=== PATIENT | female | born 1935 | race Caucasian/White ===

== ENCOUNTER → 2023-08-03 09:16 | Outpatient (REF) | payer OTHER, SELFPAY ==
[2023-08-03 11:11] LABS: % Basophils 1.2 % (0-2); % Eosinophils 6.2 % (0-6); % Immature Granulocytes 0.2 % (0-0.5); % Lymphocytes 25.4 % (20.5-51.1); % Monocytes 8.3 % (1.7-9.3); % Neutrophils 58.7 % (42.2-75.2); Absolute Basophils 0.1 10^3/uL (0-0.2); Absolute Eosinophils 0.4 10^3/uL (0-0.7); Absolute Lymphocytes 1.7 10^3/uL (1.2-3.4); Absolute Monocytes 0.5 10^3/uL (0.1-0.6); Absolute Neutrophils 3.8 10^3/uL (1.4-6.5); Hematocrit 35.9 % (37.0-47.0); Hemoglobin 12.4 g/dL (12.0-16.0); Mean Corp Hgb Conc. 34.5 g/dL (33.0-37.0); Mean Corpuscular Hgb 32.8 pg (27.0-31.0); Mean Platelet Volume 11.1 fL (7.4-10.4); Nucleated Red Blood Cells % 0 %; Platelet Count 268 10^3/uL (130-400); Red Blood Cell Count 3.78 10^6/uL (4.20-5.40); Red Cell Dist. Width 12.6 % (11.5-14.5); White Blood Cell Count 6.5 10^3/uL (4.8-10.8)
[2023-08-03 12:22] LABS: ALT (SGPT) 18 U/L (0-35); AST (SGOT) 32 U/L (14-36); Albumin 4.7 g/dl (3.5-5.0); Alkaline Phosphatase 44 U/L (38-126); Blood Urea Nitrogen 28 mg/dl (7-17); Calcium 9.6 mg/dl (8.4-10.2); Carbon Dioxide 27 mmol/L (22-30); Chloride 105 mmol/L (98-107); Glucose 93 mg/dl (70-99); HDL Cholesterol 77 mg/dl; LDL Cholesterol, Calculated 112 mg/dl; Potassium 4.2 mmol/L (3.5-5.1); Sodium 138 mmol/L (135-145); Total Bilirubin 0.5 mg/dl (0.2-1.3); Total Cholesterol 211 mg/dl (50-199); Total Protein 7.1 g/dl (6.3-8.2); Triglyceride 113 mg/dl (10-149); Very Low Density Lipoprotein 22 mg/dl (0-30); eGFR > 60.00
== END ==
LOC: REG 09:16
PROVIDERS: ATTENDING PHYSICIAN Family Medicine
DX: I10 Essential (primary) hypertension (principal); E03.9 Hypothyroidism, unspecified
CPT/HCPCS: 36415; 80053; 80061; 84443; 85025

== ENCOUNTER 2023-12-12 04:07 | Inpatient (IN) | payer OTHER, SELFPAY ==
[2023-12-12] VITALS (9 sets, daily range): BP systolic 113–145; BP diastolic 57–86; BMI 24.9; BMI 23.5
[2023-12-12 00:40] LABS: % Basophils 0.5 % (0-2); % Eosinophils 0.5 % (0-6); % Immature Granulocytes 0.3 % (0-0.5); % Lymphocytes 11.5 % (20.5-51.1); % Monocytes 11.9 % (1.7-9.3); % Neutrophils 75.3 % (42.2-75.2); Absolute Basophils 0.1 10^3/uL (0-0.2); Absolute Eosinophils 0.1 10^3/uL (0-0.7); Absolute Lymphocytes 1.2 10^3/uL (1.2-3.4); Absolute Monocytes 1.3 10^3/uL (0.1-0.6); Hematocrit 36.9 % (37.0-47.0); Hemoglobin 13.2 g/dL (12.0-16.0); Mean Corp Hgb Conc. 35.8 g/dL (33.0-37.0); Mean Corpuscular Volume 95.1 fL (81.0-99.0); Mean Platelet Volume 10.5 fL (7.4-10.4); Nucleated Red Blood Cells % 0 %; Platelet Count 240 10^3/uL (130-400); Red Blood Cell Count 3.88 10^6/uL (4.20-5.40); Red Cell Dist. Width 13.2 % (11.5-14.5); White Blood Cell Count 10.6 10^3/uL (4.8-10.8)
[2023-12-12 00:41] LABS: Urine Albumin 2+ (Neg - Trace); Urine Bilirubin Negative (Negative); Urine Color Yellow; Urine Glucose Negative (Negative); Urine Ketone 2+ (Negative); Urine Leukocyte 2+ (Negative); Urine Nitrite Negative (Negative); Urine Occult Blood 4+ (Negative); Urine Specific Gravity 1.015 (<1.030); Urine Urobilinogen Negative (Neg - 1+)
[2023-12-12 00:42] LABS: Urine Character Cloudy (Clear)
[2023-12-12 01:00] LABS: ALT (SGPT) 19 U/L (0-35); AST (SGOT) 33 U/L (14-36); Albumin 4.8 g/dl (3.5-5.0); Alkaline Phosphatase 59 U/L (38-126); Blood Urea Nitrogen 24 mg/dl (7-17); Calcium 9.9 mg/dl (8.4-10.2); Carbon Dioxide 21 mmol/L (22-30); Chloride 105 mmol/L (98-107); Glucose 114 mg/dl (70-99); Potassium 3.8 mmol/L (3.5-5.1); Sodium 138 mmol/L (135-145); Total Protein 7.4 g/dl (6.3-8.2); eGFR > 60.00
[2023-12-12] MEDS: NSS 1000 IV ×3 (01:04→17:31)
--- NOTE | 2023-12-12 01:12 | ED.GENMED ---
History of Present Illness
General
Chief Complaint: Fever
Time Seen by Provider: 12/12/23 00:20
History of Present Illness
History of Present Illness:
88-year-old female with history of asthma presenting to the emergency department for concern of urinary tract infection. Patient reports she was treated for urinary tract infection last week with Bactrim. Yesterday she started to develop dysuria.
She went to her primary, who took a urine specimen, however results are still not back. Family noticed that she was normal around 11 am. Grandson then went to go check on her around 2 PM, and patient seemed confused, out of it. Patient was also
having chills, suspected fever. They gave her Tylenol and she seemed to improve. Patient herself reports generalized fatigue and weakness. She does note some dysuria. Denies chest pain, difficulty breathing. She also reports mild cough and
congestion. Denies abdominal pain. Denies focal weakness or sensory deficits. Denies additional acute medical complaints
Past History
Past History
ED Past Medical History: Asthma, Cancer (Breast cancer), HTN, Hypercholesterolemia, Hypothyroidism and Other (Osteoarthritis)
ED Past Surgical History: Other (Left radical mastectomy)
Social History
Personal:
Living: with family
Employment: Retired
Phy Exam
Physical Exam
Physical Exam:
General: Well-appearing, no clinical signs of dehydration, nontoxic and in no acute distress
HEENT: protecting airway
Neck: appears supple
CV: Normal heart rate, tachycardic
Resp: No accessory muscle use, no increased work of breathing, lungs clear to auscultation bilaterally
Abd: Soft and non-distended, no tenderness to palpation, normal bowel sounds
Extremities: No deformities, no swelling, no erythema, pulses and sensation intact
Neuro: alert, no focal neurologic deficit
: deferred
Rectal: deferred
Psych: Normal affect
Skin: Intact
Course
Orders/Labs/Results
Orders:
Orders
12/12/23 00:28
Complete Blood Count/With Diff Urgent
Comprehensive Metabolic Panel Urgent
Urinalysis Reflex To Culture Urgent
Date Specimen was Collected: 12/12/23
Time Specimen was Collected: 00:23
Urine Microscopic Reflex Cult Urgent
Urine Culture Urgent
JESSENIA Source: U
Specimen Description:
Date Specimen was Collected: 12/12/23
Time Specimen was Collected: 00:23
12/12/23 00:53
0.9% Sodium Chloride 1000 ml [Nss] 1,000 ml IV BOLUS
12/12/23 00:54
CR Chest - 2 Views Urgent
Comment:
Reason For Exam: cough
12/12/23 01:01
COVID-19 Antigen Urgent
Source: Nasal Swab
Lactic Acid Q4H
Comment: CANCEL 2nd LACTIC ACID IF 1st LACTIC ACID IS LESS THAN 2
Blood Culture Urgent
JESSENIA Source: Blood/Venous
Specimen Description:
Influenza A+B Rapid Molecular Urgent
JESSENIA Source: Nasal Swab
Specimen Description:
12/12/23 02:06
Cefepime HCl [Maxipime] 2,000 mg IV NOW STA
12/12/23 05:00
Lactic Acid Q4H
Comment: CANCEL 2nd LACTIC ACID IF 1st LACTIC ACID IS LESS THAN 2
Abnormal Lab Results
12/12/23
00:28
RBC 3.88 L 10^6/uL
(4.20-5.40)
Hct 36.9 L %
(37.0-47.0)
MCH 34.0 H pg
(27.0-31.0)
MPV 10.5 H fL
(7.4-10.4)
Absolute Neuts (auto) 8.0 H 10^3/uL
(1.4-6.5)
Absolute Monos (auto) 1.3 H 10^3/uL
(0.1-0.6)
Neutrophils % 75.3 H %
(42.2-75.2)
Lymphocytes % 11.5 L %
(20.5-51.1)
Monocytes % 11.9 H %
(1.7-9.3)
Carbon Dioxide 21 L mmol/L
(22-30)
BUN 24 H mg/dl
(7-17)
Glucose 114 H mg/dl
(70-99)
Urine Ketones 2+ A
(Negative)
Ur Occult Blood Reflex 4+ A
(Negative)
Leukocyte Esterase Rfl 2+ A
(Negative)
Urine WBC (Reflex) >100 A /HPF
(0-5)
Urine Bacteria (Reflex) Many A
(Negative)
Urine Albumin (Reflex) 2+ A
(Neg - Trace)
12/12/23 00:28
12/12/23 00:28
Vital Signs
Initial and Last Documented VS:
Initial Vital Signs
Temp Pulse Resp BP Pulse Ox
99.2 F 117 20 127/75 93
12/12/23 00:09 12/12/23 00:09 12/12/23 00:09 12/12/23 00:09 12/12/23 00:09
Last Documented Vital Signs
Temp Pulse Resp BP Pulse Ox
99.2 F 91 21 125/62 93
12/12/23 00:09 12/12/23 01:45 12/12/23 01:45 12/12/23 01:00 12/12/23 00:09
MDM/Problems Addressed
MDM/Problems Addressed:
88-year-old female with history of asthma presenting to the emergency department for concern of confusion, lethargy, urinary tract infection. Vital signs on arrival significant for tachycardia.
On exam, patient nontoxic, alert, oriented. Patient however did have Tylenol prior to arrival. Given presenting tachycardia, with fever prior to arrival, concern for SIRS. Suspected source of infection is urine. However, also notes generalized
congestion and headache, potential COVID versus influenza. Will obtain laboratory analysis, lactic acid. Will start patient on IV fluids. Will obtain urinalysis as well. Will also obtain chest x-ray imaging
02:00 -patient's labs relatively unremarkable. Chest x-ray without acute cardiopulmonary disease. Urine does appear infected with WBCs, leuks, RBCs. Given presenting vital signs, patient's age and confusion at home, patient warrants admission for
continued monitoring and IV antibiotics. Patient agreeable to plan. Keflex ordered. Blood pressure remains stable. Without concern for septic shock or severe sepsis. Will continue fluids as clinically indicated
*Critical Care Note
Total Time (30-74mins, 75-104mins- exclusive of procedures): Not Applicable
ED Attending Note
-
Portions of this chart may have been created with voice recognition software.� Occasional wrong word or��sound alike� substitutions may have occurred due to the inherent limitations of voice recognition software.
Discharge Plan
Departure
Referrals:
Juan Horton MD [Family Provider] -
Interventions
Interventions:
*Risk Screen - Suicide Last Done: 12/12/23 00:09
*General Assessment Last Done: 12/12/23 00:09
*Neglect/Abuse Screening Last Done: 12/12/23 00:09
ED- Fall Risk Assessment Last Done: 12/12/23 00:09
*ED COVID-19 Vaccine History Last Done: 12/12/23 00:09
ED- Cardiac Assessment Last Done: 12/12/23 00:52
ED-Female Genitourinary Assessment Last Done: 12/12/23 00:52
ED- Neurological Assessment Last Done: 12/12/23 00:52
ED- Pulmonary Assessment Last Done: 12/12/23 00:52
ED-Skin Assessment Last Done: 12/12/23 00:52
Discharge Date and Time
Print Language: SINHALA
[2023-12-12 01:33] LABS: Lactic Acid 0.8 mmol/L (0.7-2.0)
[2023-12-12 01:42] LABS: COVID-19 Antigen Negative (Negative)
[2023-12-12 01:53] LABS: Urine White Cell >100 /HPF (0-5)
[2023-12-12 02:00] LABS: Urine Amorphous Seen; Urine Bacteria Many (Negative); Urine Squamous Cell SEEN /LPF (Few)
[2023-12-12] MEDS: MAXIPIME 2000 MG IV (02:21)
--- NOTE | 2023-12-12 03:18 | HPS.HSE ---
Family Physician
-
Family Physician: Juan Horton
Chief Complaint
-
chills
History of Present Illness
88F HX Asthma, Breast CA HTN, Hypercholesterolemia, Hypothyroidism seen t ER for evaluation of OP UTI and Tx
- Dxed UTI on Nov and treated with 5 days of Bactrim
- Today new onset of dysuria with feverish and chills
- New onset of acute confusional state around afternoon per family
POS chills, suspected fever.
Asso with weakness
ROS
Denies abdominal pain.
Denies focal weakness or sensory deficits.
Medical History
Past Medical History
Past Medical History: Reports Cancer (Breast ), HTN, Hypercholesterolemia and Hypothyroidism
Past Surgical History: Reports Other (Left radical mastectom)
Social History
Tobacco: Non-smoker
Personal:
Living: With Family
Family History
Family History: Not pertinent
Allergies / Home Medications
Allergies reflects when Allergies were last updated in [facility].
Home Medications with original date entered in [facility]
Allergy/Medication List:
Allergies
Allergy/AdvReac Type Severity Reaction Status Date / Time
codeine Allergy Unknown Unknown Verified 12/12/23 00:09
If medication reconciliation has not been performed, why?: Medication List N/A
Review of Systems
-
Constitutional: Reports Fever, Fatigue and Chills
EENT: Reports No Symptoms
Respiratory: Reports No Symptoms
Cardiac: Reports No Symptoms
Abdomen/GI: Reports No Symptoms
: Reports Dysuria
Musculoskeletal: Reports No Symptoms
Skin: Reports No Symptoms
Neurological: Reports Weakness
Endocrine: Reports No Symptoms
Hematologic/Lymphatic: Reports No Symptoms
Psych: Reports Other (confused )
Physical Exam
Vital Signs
Vital Signs
Temp Pulse Resp BP Pulse Ox
99.2 F 95 27 113/62 93
12/12/23 00:09 12/12/23 02:30 12/12/23 02:30 12/12/23 02:00 12/12/23 00:09
Physical Exam
General: No Apparent Distress, Comfortable and Conversant (slow cognitive speed )
HEENT: NormoCephalic, Anicteric and Moist mucous membranes
Respiratory: Clear; No Wheezes, Rales or Rhonchi
Cardiac: S1/S2 and Regular Rhythm
GI: Soft, Non Tender, Non Distended and Normal Bowel Sounds
Genito-urinary: Deferred by me
Musculoskeletal: Clubbing and No Edema
Neuro: Alert and Other (slow cognitive speed )
Psych: Calm
Laboratory Results
-
12/12/23 00:28
12/12/23 00:28
Laboratory Results
Lactic Acid 0.8 mmol/L (0.7-2.0) 12/12/23 01:01
Total Bilirubin 1.0 mg/dl (0.2-1.3) 12/12/23 00:28
AST 33 U/L (14-36) 12/12/23 00:28
ALT 19 U/L (0-35) 12/12/23 00:28
Alkaline Phosphatase 59 U/L (38-126) 12/12/23 00:28
Data Reviewed
-
Lab Data: Labs Reviewed by me
Impression/Plan
-
Reviewed VS: T 99.3
Data
nl WCC
CO2 21
BUN 24
nl Cr
POS UA suggestive of UTI
NEG Flu A & B
BCx sent
CXR my view; unremarkable
NO PRIOR hospitalist admission:
ASSESSMENT & PLAN
UTI with dysuria
Low grade fever with chills
Significant pyuria
Recent UTI on Mariela 22nd and treated with 5 days of Bactrim
-BCx
- UCx
- IVF
- IV CFTX instead of CFP
Transient TME due to UTI
- fall precaution
- f/u MS with above Tx
HX chr abdominal pain
HX Extensive w/u but unknown origin
- on Tylenol alternate with NSAIDS
- hold off NSAIDs for now
Essential HTN
Hypercholesterolemia
Hypothyroidism
- cont all OP Meds: Pending Rx reconciliation
DVT Px: LMWH
Code: Full code
IP MS
[2023-12-12] MEDS: TYLENOL 650 MG PO (04:59)
[2023-12-12] MEDS: ZOFRAN 4 MG IV (05:03)
[2023-12-12] MEDS: ROCEPHIN 1000 MG IV (06:31)
[2023-12-12] MEDS: STERILE WATER FOR INJECTION 10 ML IV (06:32)
[2023-12-12 07:01] LABS: Hematocrit 31.8 % (37.0-47.0); Hemoglobin 11.3 g/dL (12.0-16.0); Mean Corp Hgb Conc. 35.5 g/dL (33.0-37.0); Mean Corpuscular Hgb 33.5 pg (27.0-31.0); Mean Corpuscular Volume 94.4 fL (81.0-99.0); Mean Platelet Volume 10.8 fL (7.4-10.4); Platelet Count 221 10^3/uL (130-400); Red Blood Cell Count 3.37 10^6/uL (4.20-5.40); Red Cell Dist. Width 13.2 % (11.5-14.5); White Blood Cell Count 8.5 10^3/uL (4.8-10.8)
[2023-12-12 07:28] LABS: Lactic Acid 0.6 mmol/L (0.7-2.0)
[2023-12-12 07:39] LABS: Blood Urea Nitrogen 18 mg/dl (7-17); Calcium 8.7 mg/dl (8.4-10.2); Carbon Dioxide 20 mmol/L (22-30); Chloride 107 mmol/L (98-107); Estimated Creatinine Clearance 51 ml/min; Glucose 110 mg/dl (70-99); Potassium 3.6 mmol/L (3.5-5.1); Sodium 137 mmol/L (135-145); eGFR > 60.00
--- NOTE | 2023-12-12 09:53 | PTCARENOTE ---
pt aaox3. forgetful at times. oob with min assist to bathroom. ivf running as ordered. pt states no burning with urination.
--- NOTE | 2023-12-12 14:00 | PTCARENOTE ---
Received pt from ER.Pt awake, alert and oriented x3.Pt MILLE LACS, Pt has no c/o pain, VSS 94% on RA. Pt oriented to room, call delacruz within reach, plan of care continues.
[2023-12-12] MEDS: ASPIR LOW (ENTERIC COATED) 81 MG PO (16:14)
[2023-12-12] MEDS: LOVENOX 40 MG SC (17:31)
[2023-12-12] MEDS: CRESTOR 10 MG PO (21:22)
[2023-12-12] MEDS: BENICAR 20 MG PO (21:23)
[2023-12-12] MEDS: PAMELOR 20 MG PO (21:24)
[2023-12-12] MEDS: NORVASC 5 MG PO (21:25)
[2023-12-12] MEDS: XALATAN OPHTHALMIC SOLUTION 1 DROP BOTH EYES (21:26)
[2023-12-13] MEDS: STERILE WATER FOR INJECTION 10 ML IV (05:52)
[2023-12-13] MEDS: ROCEPHIN 1000 MG IV (05:52)
[2023-12-13] MEDS: SYNTHROID 75 MCG PO (05:54)
[2023-12-13 06:00] VITALS: BMI 23.8
[2023-12-13 07:42] VITALS: BP 114/70
[2023-12-13] MEDS: ASPIR LOW (ENTERIC COATED) 81 MG PO (09:21)
[2023-12-13] MEDS: OSCAL CAL 500 500 MG PO (09:21)
--- NOTE | 2023-12-13 10:25 | CM ---
Patient seen bedside, initial assessment completed. Patient resides independently in a ranch style home, three to four steps to enter. Patient denies the use of DME, VN, or SNF. Patient confirms PCP Juan Horton, pharmacy [facility], confirms
prescription coverage. Patient denies food, transportation, housing/utility insecurities. CM will continue to follow for all discharge planning needs.
Plan; home no needs likely.
[2023-12-13] MEDS: NSS 1000 IV (10:31)
[2023-12-13 15:49] VITALS: BP 144/82
--- NOTE | 2023-12-13 17:01 | W.PN.HOSP.TC ---
Today's Communication/Plan
-
see plan above
Assessment / Plan
Assessment / Plan
Subjective fever with chills at home followed with episode of confusion. Currently asymptomatic. Afebrile and no white count on admission but she still has persistent pyuria. With persistent pyuria and history of nephrolithiasis rule out active
stone disease. Obtain a CT of the abdomen pelvis without contrast. Continue with the current antibiotic regimen and follow culture data which is pending.
Tachycardia-clincally sinus-chronic. Echo in 2022 showed normal EF. Obtain a twelve-lead EKG. Check TSH. Patient on Synthroid.
Hypertension-continue with home medication
Full code
Total time spent on today's encounter was 52 minutes which included time spent in counseling the patient/family regarding diagnosis and treatment plan as listed above, goals of care, and symptom management. Case was discussed with nursing staff .
All labs and imaging personally reviewed by me. Remainder the time spent in detailed review of previous records, lab data, imaging, and other medical provider documentation.
Anticipated Discharge: 24 - 48 hours
Subjective/Interval History
-
Date of Service: December 13, 2023
feeling better.
Patient had dysuria and was diagnosed with what the daughter says Proteus last week and had 5 days of Bactrim.
After she finished Bactrim on Saturday she had some dysuria and she was not feeling well.
On Saturday she started to have shakes and she gave Tylenol which improved but then she had recurrent shaking and she had more Tylenol given by the daughter. She noted to be confused so the daughter brought her to the hospital.
Patient currently denies any dysuria. No further confusion. She feels better.
Daughter does mention about history of remote nephrolithiasis.
Objective Data
-
Vital Signs:
Vital Signs
Temp Pulse Resp BP Pulse Ox
98.8 F 105 16 144/82 94
12/13/23 15:49 12/13/23 15:49 12/13/23 15:49 12/13/23 15:49 12/13/23 15:49
I&O
12/12/23 12/13/23 12/14/23
06:59 06:59 06:59
Intake Total 480 / 480
Balance 480 / 480
Review of Systems
-
Constitutional: Denies Fever or Chills
EENT: Denies Sore Throat
Respiratory: Denies Trouble Breathing
Cardiac: Denies Chest Pain
Abdomen/GI: Denies Abdominal Pain, Nausea or Vomiting
Genitourinary: Denies Dysuria or Frequency
Neuro: Denies Dizzy
Physical Exam
-
General: No Apparent Distress
HEENT: Moist Mucous Membranes
Respiratory: Clear to Auscultation
Cardiac: Regular Rhythm, S1/S2 and Tachycardic ( History tachycardia for which she was seen by Dr. Russo and in fact had a Holter.)
GI: Soft
Neuro: AO x 3
Psych: Calm
Data Reviewed
-
Labs: Labs Reviewed by me
[2023-12-13 18:39] LABS: TSH 1.31 uIU/ml (0.47-4.68)
[2023-12-13] MEDS: LOVENOX 40 MG SC (18:44)
[2023-12-13] MEDS: BENICAR 20 MG PO (22:32)
[2023-12-13] MEDS: CRESTOR 10 MG PO (22:33)
[2023-12-13] MEDS: NORVASC 5 MG PO (22:33)
[2023-12-13] MEDS: PAMELOR 20 MG PO (22:33)
[2023-12-13] MEDS: XALATAN OPHTHALMIC SOLUTION 1 DROP BOTH EYES (22:35)
[2023-12-13 23:00] VITALS: BP 128/73
[2023-12-14] MEDS: SYNTHROID PO (05:20)
[2023-12-14] MEDS: ROCEPHIN 1000 MG IV (05:21)
[2023-12-14] MEDS: STERILE WATER FOR INJECTION 10 ML IV (05:21)
[2023-12-14 06:00] VITALS: BMI 23.5
[2023-12-14 07:11] VITALS: BP 131/78
[2023-12-14] MEDS: TYLENOL 650 MG PO ×2 (07:29→21:16)
[2023-12-14] MEDS: SYNTHROID 75 MCG PO (07:29)
[2023-12-14] MEDS: ASPIR LOW (ENTERIC COATED) 81 MG PO (08:47)
[2023-12-14] MEDS: OSCAL CAL 500 500 MG PO (08:47)
--- NOTE | 2023-12-14 11:09 | W.PN.HOSP.TC ---
Today's Communication/Plan
-
CW ABX
Follow CT A/P
Add low dose BB
Assessment / Plan
Assessment / Plan
Subjective fever with chills at home followed with episode of confusion. Currently asymptomatic; feeling much improved. Afebrile and no white count on admission but she still has persistent pyuria. With persistent pyuria and history of
nephrolithiasis rule out active stone disease. Obtain a CT of the abdomen pelvis without contrast-pending. Continue with the current antibiotic regimen and follow culture data which is pending.
Tachycardia-clincally sinus-chronic. Echo in 2022 showed normal EF. SR on EKG. TSH normal. Patient on Synthroid.Will add low dose BB.
Hypertension-continue with home medication
Full code
Anticipated Discharge: Within 24 hours
Subjective/Interval History
-
Date of Service: December 14, 2023
Feels much improved.
Denies fever or further chills.
No N/V/Abdo pain.
Objective Data
-
Vital Signs:
Vital Signs
Temp Pulse Resp BP Pulse Ox
98.7 F 102 22 131/78 96
12/14/23 07:11 12/14/23 07:11 12/14/23 07:11 12/14/23 07:11 12/14/23 07:11
I&O
12/13/23 12/14/23 12/15/23
06:59 06:59 06:59
Intake Total 2180 / 2180
Balance 2180 / 2180
Review of Systems
-
Respiratory: Denies Trouble Breathing
Cardiac: Denies Chest Pain
Neuro: Denies Dizzy
Physical Exam
-
General: No Apparent Distress
HEENT: Moist Mucous Membranes
Respiratory: Non Labored Respirations; Negative Accessory Resp Muscle Use
Cardiac: Regular Rhythm and S1/S2
GI: Soft
Neuro: AO x 3
Data Reviewed
-
Labs: Labs Reviewed by me
[2023-12-14] MEDS: SENOKOT-S 1 TABLET PO (12:56)
[2023-12-14 16:35] VITALS: BP 129/70
[2023-12-14] MEDS: LOVENOX 40 MG SC (17:14)
[2023-12-14] MEDS: LOPRESSOR 12.5 MG PO (21:11)
[2023-12-14] MEDS: NORVASC 5 MG PO (21:12)
[2023-12-14] MEDS: BENICAR 20 MG PO (21:12)
[2023-12-14] MEDS: CRESTOR 10 MG PO (21:12)
[2023-12-14] MEDS: PAMELOR 20 MG PO (21:12)
[2023-12-14] MEDS: XALATAN OPHTHALMIC SOLUTION 1 DROP BOTH EYES (21:13)
[2023-12-14 23:16] VITALS: BP 116/73
[2023-12-15] MEDS: ROCEPHIN 1000 MG IV (05:14)
[2023-12-15] MEDS: STERILE WATER FOR INJECTION 10 ML IV (05:15)
[2023-12-15] MEDS: SYNTHROID 75 MCG PO (05:20)
[2023-12-15 07:30] VITALS: BP 111/65
[2023-12-15] MEDS: ASPIR LOW (ENTERIC COATED) 81 MG PO (09:32)
[2023-12-15] MEDS: LOPRESSOR 12.5 MG PO (09:32)
[2023-12-15] MEDS: OSCAL CAL 500 500 MG PO (09:34)
--- NOTE | 2023-12-15 15:04 | W.DS.TRANS ---
DC Summary - Senior Management Consultant
-
Discharge Instructions:
Discharge Diagnosis/Procedures Recurrent Proteus mirabilis UTI; large right
renal pelvis stone; sinus tachycardia; HTN
Diet 2 Gram Sodium
Activity As tolerated
Driving Restrictions No driving
Bathing Restrictions None
Others Tests Urine culture a week after finishing antibiotics
Instructions:
Stand-Alone Forms:
Changes to Home Medications: Yes
Discharge Medications:
DC Medications w/original date entered in [facility]
acetaminophen 500 mg tablet (Tylenol Extra Strength) 1,000 mg PO Q6HPRN PRN mild pain 12/12/23
amlodipine 5 mg-olmesartan 20 mg tablet 1 tab PO HS Blood Pressure 12/12/23
aspirin 81 mg tablet,delayed release 81 mg PO DAILY Blood Clot Prevention/Tx 12/12/23
calcium carbonate (Calcium 500) 500 mg PO DAILY Supplement 12/12/23
coenzyme Q10 100 mg capsule (CoQ-10) 100 mg PO DAILY Supplement 12/12/23
latanoprost 0.005 % eye drops 1 drp BOTH EYES HS Eye Condition 12/12/23
levothyroxine 75 mcg tablet 75 mcg PO DAILY Thyroid 12/12/23
nortriptyline 10 mg capsule 20 mg PO HS Neurological Condition 12/12/23
omeprazole 40 mg capsule,delayed release 40 mg PO DAILYPRN PRN GERD 12/12/23
rosuvastatin 10 mg tablet 10 mg PO HS High Cholesterol 12/12/23
amoxicillin 875 mg-potassium clavulanate 125 mg tablet 1 tab PO BID #14 tabs 12/15/23
metoprolol tartrate 25 mg tablet 12.5 mg (1/2 x 25 mg) PO BID #60 tabs 12/15/23
Home Medication Changes
new medication-Augmentin for 7 days, metoprolol
Pending Results: No
--- NOTE | 2023-12-15 15:05 | W.PN.HOSP.TC ---
Today's Communication/Plan
-
DC
Assessment / Plan
Assessment / Plan
Subjective fever with chills at home followed with episode of confusion. Currently asymptomatic; feeling much improved. Afebrile and no white count on admission but she still has persistent pyuria. With persistent pyuria and history of
nephrolithiasis need to rule out active stone disease. CT of the abdomen pelvis without contrast- Shows a large right renal pelvis stone. The large enough that it will not pass but fortunately not causing any obstruction. Creatinine normal.
Asymptomatic without colicky pain. With persistent Proteus in the urine , the setting is complicated UTI. Discussed with daughter and explained that it will be difficult to eradicate Proteus without definitive stone management. She sees local
urologist Dr. Shepard and she is going to call them on Saturday for follow-up. Since no sepsis, obstruction or symptoms will discharge patient home on Augmentin.
Recurrent Proteus mirabilis complicated UTI -see above
Tachycardia- sinus-chronic. Echo in 2022 showed normal EF. SR on EKG. TSH normal. Patient on Synthroid.Will add low dose BB.
Hypertension-continue with home medication
Full code
Discussed with daughter about UTI, renal stone, and the beta-keenan for sinus tachycardia.
Follow with PCP and urologist
Total time of discharge 35 minutes
Anticipated Discharge: Today
Subjective/Interval History
-
Date of Service: December 15, 2023
voices no specific complaints. No further chills. No fevers noted. Denies any dysuria frequency of urine.
No nausea vomiting. Tolerating diet. Feels she is ready for home.
Daughter feels she is back to baseline.
Objective Data
-
Vital Signs:
Vital Signs
Temp Pulse Resp BP Pulse Ox
98 F 90 18 111/65 95
12/15/23 07:30 12/15/23 07:30 12/15/23 07:30 12/15/23 07:30 12/15/23 07:30
I&O
12/14/23 12/15/23 12/16/23
06:59 06:59 06:59
Intake Total 2180 / 2180 600 / 600
Balance 2180 / 2180 600 / 600
Review of Systems
-
Respiratory: Denies Trouble Breathing
Cardiac: Denies Chest Pain
Abdomen/GI: Denies Abdominal Pain
Neuro: Denies Dizzy
Physical Exam
-
General: No Apparent Distress
HEENT: Moist Mucous Membranes
Respiratory: Non Labored Respirations; Negative Accessory Resp Muscle Use
Cardiac: Regular Rhythm and S1/S2
GI: Soft and Nontender
Genito-urinary: No Costovertebral Tender
Neuro: AO x 3
Psych: Calm; Negative Confused
[2023-12-15 15:11] VITALS: BP 139/70
--- NOTE | 2023-12-15 15:24 | CM ---
CM reviewed chart and noted dc order
Bedside meeting with pt and dtr
No needs identified
Private duty list provided per request for future planning
IMM verbally reviewed- copy provided
Discharge Disposition- home, no needs- dtr transport
== END 2023-12-15 16:01 | disposition home or self-care (01) | DRG 689 ==
LOC: 4 EAST ACU 04:07
PROVIDERS: ADMITTING PHYSICIAN Internal Medicine; ATTENDING PHYSICIAN Internal Medicine; EMERGENCY PHYSICIAN Student in an Organized Health Care Education/Training Program; FAMILY PHYSICIAN Family Medicine
DX: N39.0 Urinary tract infection, site not specified (principal); G92.8 Other toxic encephalopathy; B96.4 Proteus (mirabilis) (morganii) as the cause of diseases classified elsewhere; N20.0 Calculus of kidney; R00.0 Tachycardia, unspecified; I10 Essential (primary) hypertension; E78.00 Pure hypercholesterolemia, unspecified; J45.909 Unspecified asthma, uncomplicated; E03.9 Hypothyroidism, unspecified; Z79.82 Long term (current) use of aspirin; Z79.890 Hormone replacement therapy; Z85.3 Personal history of malignant neoplasm of breast; Z88.5 Allergy status to narcotic agent
CPT/HCPCS: 71046; 74176; 80048; 80053; 81003; 81015; 83605; 84443; 85025; 85027; 87040; 87077; 87086; 87186; 87502; 87811; 93005; 96374; 96375; 99285

== ENCOUNTER 2023-12-25 06:33 | Day surgery (SDC) | payer OTHER, SELFPAY ==
--- NOTE | 2023-12-23 16:35 | PTCARENOTE ---
Abn MD JORDON office aware.
[2023-12-25] VITALS (9 sets, daily range): BP systolic 94–148; BP diastolic 50–79; BMI 23.6
[2023-12-25] MEDS: NORMOSOL-R 1000 IV (12:05)
[2023-12-25] MEDS: TYLENOL 1000 MG PO (12:54)
[2023-12-25] MEDS: ZOFRAN 4 MG IV (16:39)
== END 2023-12-25 16:59 | disposition home or self-care (01) ==
LOC: SDS 06:33
PROVIDERS: ATTENDING PHYSICIAN Specialist
DX: N20.0 Calculus of kidney (principal); N28.89 Other specified disorders of kidney and ureter; N39.0 Urinary tract infection, site not specified; B96.4 Proteus (mirabilis) (morganii) as the cause of diseases classified elsewhere
CPT/HCPCS: 52356; 74018; 76000; C2617; J1580

== ENCOUNTER 2024-01-31 06:39 | Day surgery (SDC) | payer OTHER, SELFPAY ==
[2024-01-31] VITALS (9 sets, daily range): BP systolic 117–128; BP diastolic 70–76; BMI 24.1
[2024-01-31] MEDS: NORMOSOL-R/PLASMALYTE-A 1000 IV (09:15)
[2024-01-31] MEDS: ZOFRAN 4 MG IV (13:26)
== END 2024-01-31 15:31 | disposition home or self-care (01) ==
LOC: SDS 06:39
PROVIDERS: ATTENDING PHYSICIAN Specialist
DX: N20.0 Calculus of kidney (principal); N28.89 Other specified disorders of kidney and ureter; N39.0 Urinary tract infection, site not specified
CPT/HCPCS: 52356; 74420; 76000; C1894; C2617; J1580

== ENCOUNTER 2024-02-05 02:36 | Inpatient (IN) | payer OTHER, SELFPAY ==
[2024-02-04 21:01] VITALS: BP 129/82
[2024-02-04 21:23] LABS: % Basophils 0.5 % (0-2); % Eosinophils 4.9 % (0-6); % Immature Granulocytes 0.4 % (0-0.5); % Lymphocytes 18.9 % (20.5-51.1); % Neutrophils 62.3 % (42.2-75.2); Absolute Basophils 0.1 10^3/uL (0-0.2); Absolute Eosinophils 0.5 10^3/uL (0-0.7); Absolute Monocytes 1.4 10^3/uL (0.1-0.6); Absolute Neutrophils 6.5 10^3/uL (1.4-6.5); Hematocrit 31.2 % (37.0-47.0); Hemoglobin 11.2 g/dL (12.0-16.0); Mean Corp Hgb Conc. 35.9 g/dL (33.0-37.0); Mean Corpuscular Hgb 32.4 pg (27.0-31.0); Mean Corpuscular Volume 90.2 fL (81.0-99.0); Mean Platelet Volume 10.3 fL (7.4-10.4); Nucleated Red Blood Cells % 0 %; Platelet Count 300 10^3/uL (130-400); Red Blood Cell Count 3.46 10^6/uL (4.20-5.40); Red Cell Dist. Width 12.9 % (11.5-14.5); White Blood Cell Count 10.4 10^3/uL (4.8-10.8)
[2024-02-04 21:40] LABS: ALT (SGPT) 21 U/L (0-35); AST (SGOT) 28 U/L (14-36); Alkaline Phosphatase 65 U/L (38-126); Blood Urea Nitrogen 21 mg/dl (7-17); Calcium 9.5 mg/dl (8.4-10.2); Carbon Dioxide 23 mmol/L (22-30); Chloride 99 mmol/L (98-107); Glucose 110 mg/dl (70-99); Potassium 3.9 mmol/L (3.5-5.1); Sodium 134 mmol/L (135-145); Total Bilirubin 0.6 mg/dl (0.2-1.3); Total Protein 6.6 g/dl (6.3-8.2); eGFR > 60.00
[2024-02-04 22:30] VITALS: BMI 23.4
[2024-02-04] MEDS: NSS 1000 IV (22:43)
[2024-02-04 22:45] VITALS: BP 128/55
[2024-02-04 22:55] LABS: Urine Albumin 1+ (Neg - Trace); Urine Bilirubin Negative (Negative); Urine Character Slightly Cloudy (Clear); Urine Color Yellow; Urine Glucose Negative (Negative); Urine Ketone Negative (Negative); Urine Leukocyte 2+ (Negative); Urine Nitrite Negative (Negative); Urine Occult Blood 3+ (Negative); Urine Urobilinogen Negative (Neg - 1+)
[2024-02-04 23:00] VITALS: BP 128/60
[2024-02-04 23:05] LABS: Lactic Acid 0.9 mmol/L (0.7-2.0)
[2024-02-04 23:08] LABS: COVID-19 Antigen Negative (Negative)
[2024-02-04 23:10] LABS: Urine Bacteria Few (Negative); Urine White Cell >100 /HPF (0-5)
--- NOTE | 2024-02-04 23:36 | ED.GENMED ---
History of Present Illness
General
Chief Complaint: Fever
Source: patient and family (daughter)
Exam Limitations: none
Time Seen by Provider: 02/04/24 22:12
History of Present Illness
History of Present Illness:
This is a 88 year old female that comes in with c/o fever. daughter states that she was here before with kidney stones. States that in December she had a UTI and they did a CT scan and there were stones. States that on December 24 Dr. Covington did
Lazer surgery on the stones and place a stent. States that this was redone on January 30 and the stent was changed. ON Saturday she was good. Then on Saturday she had a fever of 101.9. States that she took Tylenol and it came down to 99.8. States that
they called Dr. Saenz and since patient was on Augmentin he directed that she should continue with Tylenol and Advil. Saturday patient had pain around 11:30-12pm and she took Advil and this helped. States that she came very cold and her face was
priyanka. States that her temp then went down to 96.9 yesterday when she got home. Then 45 min -1 hour later she was throwing off all the clothing as she was hot and pale.Today she had a fever again of 100 so they felt they better come in. States that
she felt cold today with the fever and had urinary burning. States that she also had a headache today and yesterday. Denies any chest pain, SOB, abd pain, nausea, vomiting, diarrhea, dizziness.
Past History
Past History
ED Past Medical History: Asthma, Cancer (Breast cancer, Uterine CA), GERD, HTN, Hypercholesterolemia, Hypothyroidism and Other (Osteoarthritis. Sciatica, Hiatal hernia, renal calculus, Glaucoma, )
ED Past Surgical History: Appendectomy, Gynecological (Hysterectomy), Tonsilectomy and Other (Left radical mastectomy, cataracts, Right breast lumpectomy, Hemorrhoidectomy)
Social History
Tobacco: Non-smoker
Alcohol: None
Personal:
Living: alone
Employment: Retired
Review of Systems
Review of Systems
All Other Systems: ROS reviewed and negative except as documented in HPI and ROS
Constitutional: Reports fever and chills
EENT: Reports no symptoms
Respiratory: Reports no symptoms; Denies cough or trouble breathing
Cardiac: Reports no symptoms; Denies chest pain
ABD/GI: Reports no symptoms; Denies abdominal pain, nausea, vomiting or diarrhea
: Reports dysuria; Denies frequency or urgency
Musculoskeletal: Reports no symptoms
Skin: Reports no symptoms
Neurological: Reports headache; Denies dizzy
Psychiatric: Reports no symptoms
Phy Exam
General Physical Exam
General Presentation: no apparent distress
General age: appears stated age
General Skin: warm and dry
General Habitus: elderly
General Mental: alert
General Hydration: appears well hydrated
ENT Exam
ENT Exam: TM's normal, pharynx normal and neck supple
Eye Exam
Eye Exam: EOMI
Cardiovascular Exam
Cardiovascular Exam: regular rate/rhythm, no edema, no murmur and normal peripheral pulses
Pulmonary Exam
Pulmonary Exam: lungs clear, no respiratory distress, no rales, chest non tender, no crackles, no rhonchi, no wheezing and no cough
Gastrointestinal Exam
Gastrointestinal Exam: normal bowel sounds, non tender, soft, no organomegaly, no pulsatile mass and non distended
Musculoskeletal Exam
Musculoskeletal Exam: full ROM and no edema
Skin Exam
Skin Exam: normal color, warm/dry, no rash and no petechia
Psychiatric Exam
Psychiatric Exam: normal mood/affect
Course
Orders/Labs/Results
Orders:
Orders
02/04/24 21:03
Electrocardiogram (*1) Urgent
Reason for Study: Tachycardia
EKG- Treatment ONCE
02/04/24 21:16
Complete Blood Count/With Diff Urgent
Comprehensive Metabolic Panel Urgent
09/03/24 22:26
0.9% Sodium Chloride 1000 ml [Nss] 1,000 ml IV BOLUS
02/04/24 22:35
COVID-19 Antigen Urgent
Source: Nasal Swab
Lactic Acid Urgent
Urinalysis Reflex To Culture Urgent
Date Specimen was Collected: 02/04/24
Time Specimen was Collected: 21:03
Urine Microscopic Reflex Cult Urgent
Urine Culture Urgent
JESSENIA Source: U
Specimen Description:
Date Specimen was Collected: 02/04/24
Time Specimen was Collected: 21:03
02/04/24 23:24
CefTRIAXone [Rocephin] 1,000 mg IV NOW STA
02/05/24 00:45
CT Abd/pel Without Iv Or Oral Urgent
Comment: Concern for obstructing stone.
Reason For Exam: Fever, renal calculus
02/05/24 00:56
Acetaminophen [Tylenol] 1,000 mg .ROUTE .STK-MED ONE
02/05/24 00:57
Acetaminophen [Tylenol] 1,000 mg PO NOW STA
Abnormal Lab Results
02/04/24 02/04/24
21:16 22:35
RBC 3.46 L 10^6/uL
(4.20-5.40)
Hgb 11.2 L g/dL
(12.0-16.0)
Hct 31.2 L %
(37.0-47.0)
MCH 32.4 H pg
(27.0-31.0)
Absolute Monos (auto) 1.4 H 10^3/uL
(0.1-0.6)
Lymphocytes % 18.9 L %
(20.5-51.1)
Monocytes % 13.0 H %
(1.7-9.3)
Sodium 134 L mmol/L
(135-145)
BUN 21 H mg/dl
(7-17)
Glucose 110 H mg/dl
(70-99)
Ur Occult Blood Reflex 3+ A
(Negative)
Leukocyte Esterase Rfl 2+ A
(Negative)
Urine RBC 7-10 A /HPF
(0-2)
Urine WBC (Reflex) >100 A /HPF
(0-5)
Urine Bacteria (Reflex) Few A
(Negative)
Urine Albumin (Reflex) 1+ A
(Neg - Trace)
02/04/24 21:16
02/04/24 21:16
H/H slightly low. Slight Dehydration. Urine positive for infection. COVID Negative, Lactic acid normal 0.9
Vital Signs
Initial and Last Documented VS:
Initial Vital Signs
Temp Pulse Resp BP Pulse Ox
98.8 F 115 18 129/82 95
02/04/24 21:01 02/04/24 21:01 02/04/24 21:01 02/04/24 21:01 02/04/24 21:01
Last Documented Vital Signs
Temp Pulse Resp BP Pulse Ox
98.8 F 95 19 129/63 97
02/04/24 21:01 02/05/24 01:05 02/05/24 01:05 02/05/24 01:18 02/05/24 01:19
MDM/Problems Addressed
Differential Diagnosis Includes:
Renal calculus, UTI,
MDM/Problems Addressed:
This is a 88 year old female that comes in with c/o fever. States that she has been on Augmentin and she started with a fever on Saturday of 101.9. Patient recently had laser surgery for renal calculus and stents placed Today patient continued with a
fever so they came in.
Will get labs, urine. COVID, and CT scan.
Back into see patient and family. Explained that her Urine shows that has an infection. Will get CT to make sure there is not an obstructing stone. Will also admit patient for IV antibiotics as patient has been on oral antibiotics and still has
infection. CT is pending. Hospitalist notified.
Chronic conditions affecting care:
Renal calculus, UTi
Acute Exacerbation and/or Progression of Chronic Illness:
Renal calclus, UTI
*Radiology
Radiology exam reviewed: radiology read reviewed (CT night hawk- There has been interval placement of a left double-J ureteral stent. The prviously seen stone within the renal pelvis appears slightly fragmented although still present. Left calyceal
calcifications area again noted although decreased from prior examination. Punctate calcyeal), all reviewed NAD by ED Provider (CT cont- calcification on the right. Slight decrease in left hydronephrosis. There is a new focus of gas in the renal
pelvis along with a few foci of gas anterior to the super pole of the left kidney, likely reflects recent surgery. Mild perinephric inflammatory changes, superimposed infection ) and other (CT cont- cannot be excluded. )
*Pulse Oximetry
Patient hypoxic: no
*EKG
Interpreted by ED Provider?: Yes
Heart Rate: 103
Rate: tachycardiac
Rhythm: sinus, PAC's and PVC's
[place]: left axis deviation
Interval: normal interval
QRS Pattern: normal QRS
Ischemia: T-wave inversion (aVL, V1, V2, )
*Bow Maker Machine Tender Interpretation
Rate: normal
Heart Rate: 97
Rhythm: sinus
*Critical Care Note
Total Time (30-74mins, 75-104mins- exclusive of procedures): Not Applicable
ED Attending Note
-
Portions of this chart may have been created with voice recognition software.� Occasional wrong word or��sound alike� substitutions may have occurred due to the inherent limitations of voice recognition software.
Discharge Plan
Departure
Prescriptions:
No Action
latanoprost 0.005 % Drops
1 drp BOTH EYES HS
aspirin 81 mg Tablet,Delayed Release (Dr/Ec)
81 mg PO DAILY
acetaminophen [Tylenol Extra Strength] 500 mg Tablet
1,000 mg PO Q6HPRN PRN (Reason: mild pain)
levothyroxine 75 mcg Tablet
75 mcg PO MOTUWETHFRSA
nortriptyline 10 mg Capsule
20 mg PO HS
calcium carbonate [Calcium 500] 500 mg calcium (1,250 mg) Tablet,Chewable
500 mg PO DAILY
coenzyme Q10 [CoQ-10] 100 mg Capsule
100 mg PO DAILY
rosuvastatin 10 mg Tablet
10 mg PO HS
amlodipine-olmesartan 5-20 mg Tablet
1 tab PO HS
omeprazole 40 mg Capsule,Delayed Release(Dr/Ec)
40 mg PO PRN PRN (Reason: GERD)
metoprolol tartrate 25 mg Tablet
12.5 mg PO BID Qty: 60 0RF
amoxicillin-pot clavulanate 875-125 mg tablet
1 tab PO Q12H
albuterol sulfate [ProAir HFA] 90 mcg/actuation Hfa Aerosol Inhaler
2 puff INHALATION PRN PRN (Reason: ASTHMA )
Prolia 60 mg/mL Syringe
60 mg SC [id number]
ibuprofen [Advil] 200 mg Tablet
400 mg PO Q6H PRN (Reason: knee pain)
Referrals:
Juan Horton MD [Family Provider] -
Interventions
Interventions:
*Risk Screen - Suicide Last Done: 02/04/24 22:30
*General Assessment Last Done: 02/04/24 22:30
*Neglect/Abuse Screening Last Done: 02/04/24 22:30
ED- Fall Risk Assessment Last Done: 02/04/24 22:30
*ED COVID-19 Vaccine History Last Done: 02/04/24 22:30
ED- Neurological Assessment Last Done: 02/04/24 22:47
ED-Skin Assessment Last Done: 02/04/24 22:47
Discharge Date and Time
Print Language: MALAY
[2024-02-04] MEDS: ROCEPHIN 1000 MG IV (23:39)
[2024-02-05] MEDS: TYLENOL 1000 MG PO (00:58)
[2024-02-05 01:18] VITALS: BP 129/63
--- NOTE | 2024-02-05 01:50 | HPS.HSE ---
Family Physician
-
Family Physician: Juan Horton
Chief Complaint
-
Fever and chills
History of Present Illness
This is a 88-year-old with a history of right kidney stone and recent Proteus UTI, status post lithotripsy laser surgery with stent placement and recent stent revision on last week who presents to the emergency department with recurrent
febrile episode starting 3 days ago. Patient's history also includes a hypertension, hyperlipidemia, and hypothyroidism.
Patient had a UTI in November and was found to have kidney stone that was not obstructing. She was treated with antibiotics and discharged home with follow-up with urology. In December she did have lithotripsy and laser extraction with stent placement.
She had days stent revised January 30. She has been on Augmentin since January 30 following revision. On Saturday the patient had a fever that was greater than 101 degrees. She was placed on acetaminophen and ibuprofen at that time. She was
continued on the Augmentin. Since then the patient has had low temps and chills. She then developed fever of 100 degrees today while off of the antipyretics. She continued to have mild flank pain. She denies any hematuria. She denies dysuria
incontinence or frequency. Denies any nausea or vomiting.
In the ED she was afebrile hemodynamically stable with normal oxygen saturation. ECG shows sinus tachycardia at 103 with PVCs but otherwise unremarkable. CBC was unremarkable chemistries were also unremarkable. CT of the abdomen pelvis showing
placement of a left double-J ureteral stent, previously seen stone within the renal pelvis is slightly fragmented although still present. There is a slight decrease in the left hydronephrosis. There is a new focus of gas in the renal pelvis with a
new foci of gas anterior to the superior pole of the kidney. Mild perinephric inflammatory changes. UA with pyuria, mild bacteriuria negative for nitrites.
Medical History
Past Medical History
Past Medical History: Reports HTN, Hypercholesterolemia and Hypothyroidism
Additional Past Medical History:
Nephrolithaisis
Past Surgical History: Reports Urological
Social History
Tobacco: Non-smoker
Drug: None
Personal: Single
Living: With Family
Employment: Retired
Family History
Family History: Not pertinent
Allergies / Home Medications
Allergies reflects when Allergies were last updated in [facility].
Home Medications with original date entered in [facility]
Allergy/Medication List:
Allergies
Allergy/AdvReac Type Severity Reaction Status Date / Time
codeine Allergy Unknown Nausea / Verified 01/31/24 08:52
Vomiting
Home Medications
acetaminophen 500 mg tablet (Tylenol Extra Strength) 1,000 mg PO Q6HPRN PRN mild pain 12/12/23
amlodipine 5 mg-olmesartan 20 mg tablet 1 tab PO HS Blood Pressure 12/12/23
aspirin 81 mg tablet,delayed release 81 mg PO DAILY Blood Clot Prevention/Tx 12/12/23
calcium carbonate (Calcium 500) 500 mg PO DAILY Supplement 12/12/23
coenzyme Q10 100 mg capsule (CoQ-10) 100 mg PO DAILY Supplement 12/12/23
latanoprost 0.005 % eye drops 1 drp BOTH EYES HS Eye Condition 12/12/23
levothyroxine 75 mcg tablet 75 mcg PO MOTUWETHFRSA Thyroid 12/12/23
nortriptyline 10 mg capsule 20 mg PO HS Neurological Condition 12/12/23
omeprazole 40 mg capsule,delayed release 40 mg PO PRN PRN GERD 12/12/23
rosuvastatin 10 mg tablet 10 mg PO HS High Cholesterol 12/12/23
metoprolol tartrate 25 mg tablet 12.5 mg (1/2 x 25 mg) PO BID #60 tabs 12/15/23
albuterol sulfate 90 mcg/actuation aerosol inhaler 2 puff inhalation PRN PRN ASTHMA 12/23/23
amoxicillin 875 mg-potassium clavulanate 125 mg tablet 1 tab PO Q12H 12/23/23
denosumab 60 mg/mL subcutaneous syringe (Prolia) 60 mg SC [id number] 12/25/23
ibuprofen 200 mg tablet (Advil) 400 mg PO Q6H PRN knee pain 01/28/24
Review of Systems
-
History Source: Family
Constitutional: Reports Fever and Chills
EENT: Reports No Symptoms
Respiratory: Reports No Symptoms
Cardiac: Reports No Symptoms
Abdomen/GI: Reports No Symptoms
: Reports No Symptoms
Musculoskeletal: Reports No Symptoms
Skin: Reports No Symptoms
Neurological: Reports No Symptoms
Endocrine: Reports No Symptoms
Hematologic/Lymphatic: Reports No Symptoms
Psych: Reports No Symptoms
Physical Exam
Vital Signs
Vital Signs
Temp Pulse Resp BP Pulse Ox
98.8 F 95 19 129/63 97
02/04/24 21:01 02/05/24 01:05 02/05/24 01:05 02/05/24 01:18 02/05/24 01:19
Physical Exam
General: No Apparent Distress
HEENT: NormoCephalic, Anicteric, Moist mucous membranes and Atraumatic
Respiratory: Clear
Cardiac: S1/S2 and Regular Rhythm
GI: Soft, Non Tender, Non Distended and Normal Bowel Sounds
Rectal: Deferred by Provider
Genito-urinary: Deferred by me
Musculoskeletal: No Clubbing, No Cyanosis and No Edema
Skin: Warm
Neuro: AO x 3
Hematologic/Lymphatic: No Lymphadenopathy
Psych: Calm
Laboratory Results
-
02/04/24 21:16
02/04/24 21:16
Laboratory Results
Lactic Acid 0.9 mmol/L (0.7-2.0) 02/04/24 22:35
Total Bilirubin 0.6 mg/dl (0.2-1.3) 02/04/24 21:16
AST 28 U/L (14-36) 02/04/24 21:16
ALT 21 U/L (0-35) 02/04/24 21:16
Alkaline Phosphatase 65 U/L (38-126) 02/04/24 21:16
Data Reviewed
-
CT Scan: Report Reviewed by me
Medical Tests (Nuc Med, Echo, EKG etc): Image Personally Visualized and interpreted
Lab Data: Labs Reviewed by me
Old Records: Reviewed
Impression/Plan
-
IMPRESSION:
PLAN:
1. Fever - Recurrent fever in setting of positive u/a. Had lithotripsy of the left kidney stone in December and a stent was placed with the replacement of the stent in January 30. Fevers despite Augmentin suggesting failure of outpatient abx. No
acute urinary symptoms but u/a markedly positive. The CT c/w with post surgical changes and some decompression of the prior stone. No acute obstruction. Suspect possibly complicated UTI. Hemodynamically stable and in no acute distress.
- admit to medsurg
- continue ceftriaxone for now
- blood cultures if febrile
- pain control
- urology consultation
2. HTN
- continue amlodipine and ARB
- continue metoprolol
3. Hypothyroid
- continue levothyroxine 75
DVT PPX - lovenox sq
Code Status - Full Code
[2024-02-05 02:00] VITALS: BP 117/59
[2024-02-05] MEDS: PAMELOR 10 MG PO ×2 (02:09→21:04)
[2024-02-05 03:26] VITALS: BP 149/81; BMI 22.2
[2024-02-05] MEDS: SYNTHROID 75 MCG PO (05:31)
[2024-02-05 06:00] VITALS: BMI 22.2
[2024-02-05 06:34] LABS: Hematocrit 30.1 % (37.0-47.0); Hemoglobin 10.6 g/dL (12.0-16.0); Mean Corp Hgb Conc. 35.2 g/dL (33.0-37.0); Mean Corpuscular Volume 93.8 fL (81.0-99.0); Mean Platelet Volume 10.9 fL (7.4-10.4); Platelet Count 276 10^3/uL (130-400); Red Blood Cell Count 3.21 10^6/uL (4.20-5.40); Red Cell Dist. Width 12.7 % (11.5-14.5); White Blood Cell Count 8.4 10^3/uL (4.8-10.8)
[2024-02-05 06:58] VITALS: BP 114/71
[2024-02-05 07:14] LABS: Blood Urea Nitrogen 14 mg/dl (7-17); Calcium 8.9 mg/dl (8.4-10.2); Carbon Dioxide 23 mmol/L (22-30); Chloride 108 mmol/L (98-107); Estimated Creatinine Clearance 51 ml/min; Glucose 103 mg/dl (70-99); Potassium 3.9 mmol/L (3.5-5.1); Sodium 140 mmol/L (135-145); eGFR > 60.00
--- NOTE | 2024-02-05 07:38 | CONS.URO ---
Consultation
-
Performing Provider: Adria
Reason for Consultation: UTI, Stones
Medical History
History of Present Illness
1. Left calyceal diverticulum containing large infection-based
stone.
2. Left renal calculi (non infection based).
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
12/25/2023 Left Ureteroscopy with Laser Ablation of Infundibulum of Calyceal Diverticulum containing Struvite Stone, Laser Lithotripsy of calcium-base stones; ureteral stenting
Pt maintained on antibiosis
01/31/2024Left Ureteroscopy with, Laser Lithotripsy of struvite stones within Calyceal Diverticulum and calcium-base stones in ureter and pelvis; ureteral stent exchange
Past Medical History
Past Medical History: Other (hypertension, hyperlipidemia, and hypothyroidism, nephrolithiasis, chronic Proteus UTI)
Past Surgical History: Urological (see HPI)
Social History
Tobacco: Non-smoker
Alcohol: None
Drug: None
Personal: Single
Employment: Not Employed
Family History
Family History: Reviewed & Not Pertinent
Allergies/Home Medications
Allergies
Allergy/AdvReac Type Severity Reaction Status Date / Time
codeine Allergy Unknown Nausea / Verified 02/05/24 02:33
Vomiting
Home Medications
�Medication �Instructions �Recorded �Confirmed �Type
acetaminophen 500 mg tablet 1,000 mg PO Q6HPRN PRN mild pain 12/12/23 02/05/24 History
(Tylenol Extra Strength)
amlodipine 5 mg-olmesartan 20 mg 1 tab PO HS Blood Pressure 12/12/23 02/05/24 History
tablet
aspirin 81 mg tablet,delayed 81 mg PO DAILY Blood Clot 12/12/23 02/05/24 History
release Prevention/Tx
calcium carbonate (Calcium 500) 500 mg PO DAILY Supplement 12/12/23 02/05/24 History
coenzyme Q10 100 mg capsule 100 mg PO DAILY Supplement 12/12/23 02/05/24 History
(CoQ-10)
latanoprost 0.005 % eye drops 1 drp BOTH EYES HS Eye Condition 12/12/23 02/05/24 History
levothyroxine 75 mcg tablet 75 mcg PO MOTUWETHFRSA Thyroid 12/12/23 02/05/24 History
nortriptyline 10 mg capsule 20 mg PO HS Neurological Condition 12/12/23 02/05/24 History
omeprazole 40 mg capsule,delayed 40 mg PO PRN PRN GERD 12/12/23 02/05/24 History
release
rosuvastatin 10 mg tablet 10 mg PO HS High Cholesterol 12/12/23 02/05/24 History
metoprolol tartrate 25 mg tablet 12.5 mg (1/2 x 25 mg) PO BID #60 12/15/23 02/05/24 Rx
tabs
albuterol sulfate 90 mcg/actuation 2 puff inhalation PRN PRN ASTHMA 12/23/23 02/05/24 History
aerosol inhaler
amoxicillin 875 mg-potassium 1 tab PO Q12H 12/23/23 02/05/24 History
clavulanate 125 mg tablet
denosumab 60 mg/mL subcutaneous 60 mg SC [id number] 12/25/23 02/05/24 History
syringe (Prolia)
ibuprofen 200 mg tablet (Advil) 400 mg PO Q6H PRN knee pain 01/28/24 02/05/24 History
Physical Exam
Vital Signs
Vital Signs
Temp Pulse Resp BP Pulse Ox
97.7 F 103 18 149/81 94
02/05/24 03:26 02/05/24 03:26 02/05/24 03:26 02/05/24 03:26 02/05/24 03:26
Lab / Testing Results
Laboratory Results
02/05/24 05:38
02/05/24 05:38
Physical Exam
adult female in stree clothes sitting on bed
General: No Apparent Distress
Assessment / Plan
-
pt looks well
fit for discharge urologically
anticipate extended antibiotic course as outpatient
Data Reviewed
-
CT Scan: Image personally visualized and interpreted (left ureteral stent in proper position; residual stone and infection material within right kidney and calyceal diverticulum)
Lab Data: Labs Reviewed
Old Records: Reviewed
[2024-02-05] MEDS: BENICAR 20 MG PO (08:32)
[2024-02-05] MEDS: PROTONIX 20 MG PO (08:33)
[2024-02-05] MEDS: LOPRESSOR 12.5 MG PO ×2 (08:33→21:03)
[2024-02-05] MEDS: ASPIR LOW (ENTERIC COATED) 81 MG PO (08:33)
[2024-02-05] MEDS: NORVASC 5 MG PO (08:33)
[2024-02-05 15:06] VITALS: BP 128/77
--- NOTE | 2024-02-05 16:31 | W.PN.HOSP.TC ---
Today's Communication/Plan
-
IV antibiotics
Follow urine cultures.
Urology consultation
Assessment / Plan
Assessment / Plan
Impression:
Presentation with reported fever, left flank left lower quadrant pain and abnormal urinalysis
Complicated UTI.
Left renal stone since December 2023, status post stent placement and replacement on 01/30
Other conditions:
Essential hypertension
Hypothyroidism on replacement
Plan:
CT scan:
Interval placement of a left ureteral stent with decreased size of the left renal calculi now measuring up to 1.4 cm, previously 1.9 cm. There are small foci of gas within the left renal pelvis as well as anterior to the left superior pole which may
be sequelae of prior surgery however superimposed infection cannot be excluded. There is decreased left-sided hydronephrosis.
Remains symptomatic while on Augmentin with concern for failure of outpatient antibiotic treatment.
Recent urine culture with sensitive Proteus.
Urine cultures pending
Afebrile and hemodynamically stable with no symptoms of systemic infection
Continue ceftriaxone following cultures
Urology consultation
2. HTN
- continue amlodipine and ARB
- continue metoprolol
3. Hypothyroid
- continue levothyroxine 75
DVT PPX - lovenox sq
Code Status - Full Code
Anticipated Discharge: 24 - 48 hours
Subjective/Interval History
-
Date of Service: February 05, 2024
Objective Data
-
Labs:
Laboratory Results
02/05/24
05:38
WBC 8.4
Hgb 10.6 L
Hct 30.1 L
Plt Count 276
Sodium 140
Potassium 3.9
Chloride 108 H
Carbon Dioxide 23
BUN 14
Creatinine 0.6
Glucose 103 H
Calcium 8.9
Vital Signs:
Vital Signs
Temp Pulse Resp BP Pulse Ox
98 F 98 18 128/77 96
02/05/24 15:06 02/05/24 15:06 02/05/24 15:06 02/05/24 15:06 02/05/24 15:06
Physical Exam
-
General: No Apparent Distress
HEENT: Moist Mucous Membranes
Respiratory: Non Labored Respirations; Negative Accessory Resp Muscle Use
Cardiac: Regular Rhythm and S1/S2
GI: Soft and Nontender
Genito-urinary: No Costovertebral Tender
Neuro: AO x 3
Psych: Calm; Negative Confused
--- NOTE | 2024-02-05 17:23 | CM ---
met withn patient at bedside.patient lives alone in ranch home with 2 satya,her bed and bath is on the first floor,she amb i and is i with her adl.she has never had a vn or been to ip rehab in past.
her pcp is dr nabil miller and she uses [facility] in [place].
PMH:asthma,breast cancer sp left mastecctomy,utherine cancer,gerd,htn,hld,oahypothyroid,hh,left renal calculus since 12/24left stent placement 01/30
Plan :home with no spatient is adm with complicated uti,urology cs,patient with large calyceal infected stone ,on iv rocephin,follow urine cxs.patient has declined [facility].she is totally I and has very supportive family.Plan: dc home with no
services.
[2024-02-05] MEDS: LOVENOX 40 MG SC (17:49)
[2024-02-05] MEDS: CRESTOR 10 MG PO (21:04)
[2024-02-05] MEDS: XALATAN OPHTHALMIC SOLUTION 1 DROP BOTH EYES (21:04)
[2024-02-05 23:32] VITALS: BP 126/70
[2024-02-06] MEDS: ROCEPHIN 1000 MG IV (00:10)
[2024-02-06] MEDS: STERILE WATER FOR INJECTION 10 ML IV (00:11)
[2024-02-06] MEDS: SYNTHROID 75 MCG PO (05:38)
[2024-02-06 06:57] VITALS: BP 117/69
[2024-02-06] MEDS: PROTONIX 20 MG PO (08:33)
[2024-02-06] MEDS: ASPIR LOW (ENTERIC COATED) 81 MG PO (08:33)
[2024-02-06] MEDS: BENICAR 20 MG PO (08:33)
[2024-02-06] MEDS: LOPRESSOR 12.5 MG PO (08:33)
[2024-02-06] MEDS: NORVASC 5 MG PO (08:34)
--- NOTE | 2024-02-06 11:44 | W.PN.URO.CBU ---
Today's Communication / Plan
-
no new input
Assessment / Plan
-
clinically stable
repeat urine Cx negative
Diagnosis
-
Date of Service: February 06, 2024
-
Patient Diagnosis:
1. Left calyceal diverticulum containing large infection-based
stone.
2. Left renal calculi (non infection based).
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
12/25/2023 Left Ureteroscopy with Laser Ablation of Infundibulum of Calyceal Diverticulum containing Struvite Stone, Laser Lithotripsy of calcium-base stones; ureteral stenting
Pt maintained on antibiosis
01/31/2024Left Ureteroscopy with, Laser Lithotripsy of struvite stones within Calyceal Diverticulum and calcium-base stones in ureter and pelvis; ureteral stent exchange
Objective
-
Vital Signs
Temp Pulse Resp BP Pulse Ox
98.1 F 88 20 117/69 95
02/06/24 06:57 02/06/24 08:33 02/06/24 06:57 02/06/24 08:33 02/06/24 08:30
Intake and Output
02/05/24 02/06/24 02/07/24
06:59 06:59 06:59
Intake Total 1100 / 1100
Balance 1100 / 1100
Intake:
Oral fluids 1100 / 1100
Other:
Number of approximated MODERATE 2
amounts of urine
Number of approximated LARGE 4
amounts of urine
Laboratory Results
02/05/24 05:38
02/05/24 05:38
Physical Exam
-
General - well developed, well nourished, no acute distress
Chest - clear bilaterally
Abdomen - soft, non-tender, positive bowel sounds, no CVAT, no incisional pain or distention
Genitalia - normal
Rectal - normal
Skin - warm & dry with no rash
Neuro - AOx3, no motor deficits
Extremities - no clubbing, no cyanosis, no edema
Incision - clean, dry
Dressing - clean, dry, intact
--- NOTE | 2024-02-06 13:25 | W.DS.TRANS ---
DC Summary - Security Attendant
-
Discharge Instructions:
Discharge Diagnosis/Procedures Complicated UTI
Diet Regular
Instructions:
Stand-Alone Forms:
Changes to Home Medications: No
Discharge Medications:
DC Medications w/original date entered in [facility]
acetaminophen 500 mg tablet (Tylenol Extra Strength) 1,000 mg PO Q6HPRN PRN mild pain 12/12/23
amlodipine 5 mg-olmesartan 20 mg tablet 1 tab PO HS Blood Pressure 12/12/23
aspirin 81 mg tablet,delayed release 81 mg PO DAILY Blood Clot Prevention/Tx 12/12/23
calcium carbonate (Calcium 500) 500 mg PO DAILY Supplement 12/12/23
coenzyme Q10 100 mg capsule (CoQ-10) 100 mg PO DAILY Supplement 12/12/23
latanoprost 0.005 % eye drops 1 drp BOTH EYES HS Eye Condition 12/12/23
levothyroxine 75 mcg tablet 75 mcg PO MOTUWETHFRSA Thyroid 12/12/23
nortriptyline 10 mg capsule 20 mg PO HS Neurological Condition 12/12/23
omeprazole 40 mg capsule,delayed release 40 mg PO PRN PRN GERD 12/12/23
rosuvastatin 10 mg tablet 10 mg PO HS High Cholesterol 12/12/23
metoprolol tartrate 25 mg tablet 12.5 mg (1/2 x 25 mg) PO BID #60 tabs 12/15/23
albuterol sulfate 90 mcg/actuation aerosol inhaler 2 puff inhalation PRN PRN ASTHMA 12/23/23
denosumab 60 mg/mL subcutaneous syringe (Prolia) 60 mg SC [id number] 12/25/23
amoxicillin 875 mg-potassium clavulanate 125 mg tablet 1 tab PO Q12H #10 tabs 02/06/24
Home Medication Changes
Pending Results: No
[2024-02-06 15:10] VITALS: BP 113/78
--- NOTE | 2024-02-06 15:44 | CM ---
JANET met with Pamela and her family members at bedside. Pamela is anxious to leave; her family advised that she is afraid that she will not be allowed to leave, and is very worried.
Plan: Discharge to home today with no needs. Family will drive her home.
== END 2024-02-06 18:01 | disposition home or self-care (01) | DRG 690 ==
LOC: 4 EAST ACU 02:36
PROVIDERS: Clinical Nurse Specialist Family Health; Emergency Medicine; ADMITTING PHYSICIAN Internal Medicine; ATTENDING PHYSICIAN Internal Medicine; CONSULT PHYSICIAN Specialist; EMERGENCY PHYSICIAN Emergency Medicine; FAMILY PHYSICIAN Family Medicine
DX: N39.0 Urinary tract infection, site not specified (principal); N20.2 Calculus of kidney with calculus of ureter; N13.6 Pyonephrosis; B96.4 Proteus (mirabilis) (morganii) as the cause of diseases classified elsewhere; I10 Essential (primary) hypertension; E03.9 Hypothyroidism, unspecified; Z11.52 Encounter for screening for COVID-19
CPT/HCPCS: 74176; 80048; 80053; 81003; 81015; 83605; 85025; 85027; 87086; 87811; 93005; 96361; 96374; 99285

== ENCOUNTER → 2024-04-11 09:27 | Outpatient (REF) | payer OTHER, SELFPAY ==
[2024-04-11 09:54] LABS: % Basophils 0.9 % (0-2); % Eosinophils 9.7 % (0-6); % Immature Granulocytes 0.3 % (0-0.5); % Lymphocytes 24.3 % (20.5-51.1); % Monocytes 8.9 % (1.7-9.3); % Neutrophils 55.9 % (42.2-75.2); Absolute Basophils 0.1 10^3/uL (0-0.2); Absolute Eosinophils 0.7 10^3/uL (0-0.7); Absolute Lymphocytes 1.7 10^3/uL (1.2-3.4); Absolute Monocytes 0.6 10^3/uL (0.1-0.6); Absolute Neutrophils 3.9 10^3/uL (1.4-6.5); Hematocrit 37.8 % (37.0-47.0); Hemoglobin 12.7 g/dL (12.0-16.0); Mean Corp Hgb Conc. 33.6 g/dL (33.0-37.0); Mean Corpuscular Hgb 31.4 pg (27.0-31.0); Mean Corpuscular Volume 93.6 fL (81.0-99.0); Mean Platelet Volume 10.3 fL (7.4-10.4); Nucleated Red Blood Cells % 0 %; Platelet Count 273 10^3/uL (130-400); Red Blood Cell Count 4.04 10^6/uL (4.20-5.40); Red Cell Dist. Width 13.6 % (11.5-14.5)
[2024-04-11 10:21] LABS: ALT (SGPT) 17 U/L (0-35); AST (SGOT) 29 U/L (14-36); Albumin 4.7 g/dl (3.5-5.0); Alkaline Phosphatase 43 U/L (38-126); Blood Urea Nitrogen 30 mg/dl (7-17); Calcium 10.1 mg/dl (8.4-10.2); Carbon Dioxide 27 mmol/L (22-30); Chloride 102 mmol/L (98-107); Glucose 95 mg/dl (70-99); HDL Cholesterol 67 mg/dl; LDL Cholesterol, Calculated 109 mg/dl; Potassium 4.5 mmol/L (3.5-5.1); Sodium 141 mmol/L (135-145); Total Bilirubin 0.3 mg/dl (0.2-1.3); Total Cholesterol 199 mg/dl (50-199); Total Protein 7.6 g/dl (6.3-8.2); Triglyceride 116 mg/dl (10-149); Very Low Density Lipoprotein 23 mg/dl (0-30); eGFR > 60.00
== END ==
LOC: REG 09:27
PROVIDERS: ATTENDING PHYSICIAN Family Medicine
DX: I10 Essential (primary) hypertension (principal)
CPT/HCPCS: 36415; 80053; 80061; 84443; 85025

== ENCOUNTER → 2024-05-05 10:30 | Outpatient (REF) | payer OTHER, SELFPAY ==
[2024-05-05 12:47] LABS: % Basophils 1.3 % (0-2); % Eosinophils 7.5 % (0-6); % Immature Granulocytes 0.2 % (0-0.5); % Lymphocytes 26.2 % (20.5-51.1); % Monocytes 10.7 % (1.7-9.3); % Neutrophils 54.1 % (42.2-75.2); Absolute Basophils 0.1 10^3/uL (0-0.2); Absolute Eosinophils 0.5 10^3/uL (0-0.7); Absolute Lymphocytes 1.6 10^3/uL (1.2-3.4); Absolute Monocytes 0.7 10^3/uL (0.1-0.6); Absolute Neutrophils 3.4 10^3/uL (1.4-6.5); Hematocrit 39.1 % (37.0-47.0); Hemoglobin 13.1 g/dL (12.0-16.0); Mean Corp Hgb Conc. 33.5 g/dL (33.0-37.0); Mean Corpuscular Volume 95.6 fL (81.0-99.0); Mean Platelet Volume 11.2 fL (7.4-10.4); Nucleated Red Blood Cells % 0 %; Platelet Count 268 10^3/uL (130-400); Red Blood Cell Count 4.09 10^6/uL (4.20-5.40); Red Cell Dist. Width 13.6 % (11.5-14.5); White Blood Cell Count 6.3 10^3/uL (4.8-10.8)
[2024-05-05 13:17] LABS: ALT (SGPT) 19 U/L (0-35); AST (SGOT) 31 U/L (14-36); Albumin 4.5 g/dl (3.5-5.0); Alkaline Phosphatase 48 U/L (38-126); Blood Urea Nitrogen 22 mg/dl (7-17); Calcium 9.6 mg/dl (8.4-10.2); Carbon Dioxide 26 mmol/L (22-30); Chloride 103 mmol/L (98-107); Glucose 89 mg/dl (70-99); Potassium 4.7 mmol/L (3.5-5.1); Sodium 140 mmol/L (135-145); Total Bilirubin 0.3 mg/dl (0.2-1.3); Total Protein 7.5 g/dl (6.3-8.2); eGFR > 60.00
== END ==
LOC: HWLAB 10:30
PROVIDERS: ATTENDING PHYSICIAN Family Medicine
DX: R06.02 Shortness of breath (principal)
CPT/HCPCS: 36415; 80053; 83880; 85025

== ENCOUNTER → 2024-05-11 10:49 | Outpatient (REF) | payer OTHER, SELFPAY | LOC: RCS 10:49 | PROVIDERS: ATTENDING PHYSICIAN Internal Medicine; FAMILY PHYSICIAN Family Medicine | DX: R06.02 Shortness of breath (principal); I10 Essential (primary) hypertension; I44.4 Left anterior fascicular block; E78.00 Pure hypercholesterolemia, unspecified | CPT/HCPCS: 93306 ==

== ENCOUNTER → 2024-05-28 15:39 | Outpatient (REF) | payer OTHER, SELFPAY | LOC: RAD 15:39 | PROVIDERS: ATTENDING PHYSICIAN Nurse Practitioner Primary Care | DX: R06.02 Shortness of breath (principal); M54.6 Pain in thoracic spine; R09.02 Hypoxemia | CPT/HCPCS: 71275; Q9967 ==

== ENCOUNTER 2024-05-28 22:28 | Inpatient (IN) | payer OTHER, SELFPAY ==
[2024-05-28 19:48] VITALS: BP 166/84
[2024-05-28 20:15] VITALS: BP 135/67
[2024-05-28 20:23] LABS: % Basophils 0.3 % (0-2); % Eosinophils 2.4 % (0-6); % Immature Granulocytes 1.4 % (0-0.5); % Lymphocytes 13.8 % (20.5-51.1); % Monocytes 8.5 % (1.7-9.3); % Neutrophils 73.6 % (42.2-75.2); Absolute Eosinophils 0.3 10^3/uL (0-0.7); Absolute Immature Granulocytes 0.2 10^3/uL (0-0.05); Absolute Lymphocytes 1.9 10^3/uL (1.2-3.4); Absolute Monocytes 1.2 10^3/uL (0.1-0.6); Absolute Neutrophils 10.2 10^3/uL (1.4-6.5); Hematocrit 40.2 % (37.0-47.0); Hemoglobin 13.6 g/dL (12.0-16.0); Mean Corp Hgb Conc. 33.8 g/dL (33.0-37.0); Mean Corpuscular Hgb 31.3 pg (27.0-31.0); Mean Corpuscular Volume 92.4 fL (81.0-99.0); Mean Platelet Volume 10.2 fL (7.4-10.4); Nucleated Red Blood Cells % 0 %; Platelet Count 317 10^3/uL (130-400); Red Blood Cell Count 4.35 10^6/uL (4.20-5.40); Red Cell Dist. Width 13.6 % (11.5-14.5); White Blood Cell Count 13.9 10^3/uL (4.8-10.8)
[2024-05-28 20:36] VITALS: BMI 23.8
[2024-05-28 20:36] LABS: INR 0.89; PT 12.5 Sec (11.4-14.6)
[2024-05-28 20:37] LABS: APTT 26.8 Sec (23.4-35.0)
[2024-05-28 20:44] LABS: Blood Urea Nitrogen 20 mg/dl (7-17); Calcium 9.5 mg/dl (8.4-10.2); Carbon Dioxide 29 mmol/L (22-30); Chloride 96 mmol/L (98-107); Estimated Creatinine Clearance 42 ml/min; Glucose 111 mg/dl (70-99); Sodium 133 mmol/L (135-145); eGFR > 60.00
[2024-05-28 20:46] LABS: NT-proBNP 35.7 pg/ml; Troponin I < 0.012 ng/ml
[2024-05-28 21:00] VITALS: BP 127/72
--- NOTE | 2024-05-28 21:11 | ED.GENMED ---
History of Present Illness
General
Chief Complaint: Breathing Problem
Source: patient and family (Daughter)
Exam Limitations: none
Time Seen by Provider: 05/28/24 20:03
Nursing documentation reviewed up to this point in time: agreed with
History of Present Illness
History of Present Illness:
The patient is a pleasant 88-year-old female with a past medical history of hyperlipidemia and hypertension who has a history years ago both breast cancer and uterine cancer. Patient was brought to the emergency department by her daughter after an
outpatient CAT scan showed a large chronic pulmonary embolism in the pulmonary trunk and main right pulmonary artery. The patient reports that for at least 6 weeks she has had shortness of breath. She has been evaluated by cardiology for this.
Additionally, over the last few weeks, she has developed nasal congestion and cough and was recently started on prednisone and Augmentin. Her daughter reports that over the last 24 hours, her pulse ox for the first time was in the high 80s and she
seemed flushed. Additionally, patient complains of consistent right scapular pain every time she takes a deep breath.
Past History
Past History
ED Past Medical History: Asthma, Cancer (Breast cancer, Uterine CA), GERD, HTN, Hypercholesterolemia, Hypothyroidism and Other (Osteoarthritis. Sciatica, Hiatal hernia, renal calculus, Glaucoma, )
ED Past Surgical History: Appendectomy, Gynecological (Hysterectomy), Tonsilectomy and Other (Left radical mastectomy, cataracts, Right breast lumpectomy, Hemorrhoidectomy)
Social History
Tobacco: Non-smoker
Alcohol: None
Drug: None
Personal:
Living: alone
Employment: Retired
Family History
Family History: Other
Review of Systems
Review of Systems
Allergies reviewed?: Yes
All Other Systems: ROS reviewed and negative except as documented in HPI and ROS
Constitutional: Reports no symptoms
EENT: Reports no symptoms
Respiratory: Reports cough and trouble breathing
Cardiac: Reports no symptoms
ABD/GI: Reports no symptoms
: Reports no symptoms
Musculoskeletal: Reports back pain (right upper back pain)
Skin: Reports no symptoms
Neurological: Reports no symptoms
Endocrine: Reports no symptoms
Hematologic/Lymphatic: Reports no symptoms
Psychiatric: Reports no symptoms
Phy Exam
Physical Exam
Physical Exam:
Physical Exam
General: No acute distress.
Neck: supple.
Heart: Tachycardic
Lungs: Patient has reproducible right scapular pain when she takes a deep breath and is slightly splinting when she takes a deep breath. Lungs sound diminished bilaterally
Abdomen: normal bowel sounds. not tender. no CVAT
Neuro: alert and oriented. no focal neurological deficits
Skin: no rash
Psychiatric: well kept. interactive and cooperative
Extremities: no edema. no calf tenderness. negative homans. good distal pulses
Scores
Heart Failure Risk
Heart Failure Risk Score: Not Applicable
Sepsis
Sepsis Screening
Sepsis Assessment: Sepsis Ruled Out
Sepsis Screen
Sepsis Screen: Sepsis Ruled Out
Date: 05/28/24
Time: 22:11
Course
Orders/Labs/Results
Orders:
Orders
05/28/24 20:02
Electrocardiogram (*1) Urgent
Reason for Study: Other
Other Reason for Exam: Respiratory Distress
Cardiac Monitoring- Treatment ONCE
EKG- Treatment ONCE
IV Insert/Care/Rem.- Treatment PRN
CR Chest - 2 Views Urgent
Comment:
Reason For Exam: respiratory distress
O2 Therapy [RESP] Urgent
Titrate/Wean O2 to maintain O2 sat greater than (%): 93
Special Instructions: TO MAINTAIN CONTINUOUS O2 SATS >/= 93%
Pulse Ox/cont/shift [RESP] Urgent
Quantity: 1
Special Instructions: continuous pulse ox
05/28/24 20:09
Basic Metabolic Panel Urgent
Complete Blood Count/With Diff Urgent
NT-proBNP Urgent
Protime/PTT Urgent
Troponin I Urgent
05/28/24 21:35
Heparin 4,600 units IV NOW STA
Nursing to Place Non Medication Order As Directed
Physician Order: PTT 6 hours after initial start of Heparin infusion
05/28/24 21:45
Heparin 48337 Units/250 ml 25,000 units in 250 ml IV PER PROTOCOL
Weight to be used for heparin protocol in kilograms (kg):: 57
Protocol:: DVT/PE
PTT Goal Range to be used:: PTT 73 to 111 seconds
Order type:: Initial
INITIAL Infusion Dose (UNITS/KG/hr) & then follow protocol:: 18 units/kg/hr
Infusion Dose in UNITS/hr & then follow protocol (UNITS/hr):: 1,000
INFUSION RATE in mL/hr & then follow protocol (mL/hr):: 10
For DVT/PE algorithm, re-bolus for low PTT?: Yes
PTT less than or equal to 64 seconds:: Re-bolus 80 units/kg (max 10,000units). Increase by 200 units/hr
(+ 2mL/hr)
PTT 64.1 to 72.9 seconds:: Re-bolus 40 units/kg (max 5,000 units). Increase by 100 units/hr
(+ 1mL/hr)
PTT 73 to 111 seconds:: Target Range. No change in rate.
PTT 111.1 to 130.9 seconds:: Decrease rate by 100 units/hr (- 1 mL/hr)
PTT 131 to 199.9 seconds:: HOLD for 1 hr. Then decrease by 200 units/hr (- 2mL/hr)
PTT greater than or equal to 200 seconds:: HOLD for 2 hrs & Notify Provider. Then decrease by 200 units/hr
(- 2mL/hr)
Lab follow-up:: Each change, PTT q6h until 2 consecutive are therapeutic. Then
PTT daily.
05/28/24 21:51
Heparin 2,300 units IV PRN PRN
Heparin 4,600 units IV PRN PRN
05/28/24 22:01
Acetaminophen [Tylenol] 1,000 mg PO NOW STA
Abnormal Lab Results
05/28/24
20:09
WBC 13.9 H 10^3/uL
(4.8-10.8)
MCH 31.3 H pg
(27.0-31.0)
Abs Immat Gran (auto) 0.2 H 10^3/uL
(0-0.05)
Absolute Neuts (auto) 10.2 H 10^3/uL
(1.4-6.5)
Absolute Monos (auto) 1.2 H 10^3/uL
(0.1-0.6)
Immature Gran % 1.4 H %
(0-0.5)
Lymphocytes % 13.8 L %
(20.5-51.1)
Sodium 133 L mmol/L
(135-145)
Chloride 96 L mmol/L
(98-107)
BUN 20 H mg/dl
(7-17)
Glucose 111 H mg/dl
(70-99)
05/28/24 20:09
05/28/24 20:09
Vital Signs
Initial and Last Documented VS:
Initial Vital Signs
Temp Pulse Resp BP Pulse Ox
98.4 F 122 24 166/84 96
05/28/24 19:48 05/28/24 19:48 05/28/24 19:48 05/28/24 19:48 05/28/24 19:48
Last Documented Vital Signs
Temp Pulse Resp BP Pulse Ox
98.4 F 102 24 135/67 97
05/28/24 19:48 05/28/24 20:30 05/28/24 20:30 05/28/24 20:15 05/28/24 20:30
MDM/Problems Addressed
Differential Diagnosis Includes:
Acute pulmonary embolism, chronic pulmonary embolism, pneumonia, acute coronary syndrome
MDM/Problems Addressed:
Patient presents with several weeks of shortness of breath and cough as well as acute right scapular pain
Chronic conditions affecting care:
Given patient's history of uterine and breast cancer in the past, she can be at risk of cancer recurrence and developed a PE
Chronic conditions affecting care: Cancer
Acute Exacerbation and/or Progression of Chronic Illness:
Patient is acutely hypertensive, this can be due to discomfort and anxiety
*Radiology
Radiology exam reviewed: preliminary read by ED provider (Chest x-ray read by me. No acute disease) and radiology read reviewed
*Pulse Oximetry
Patient hypoxic: no
*EKG
Interpreted by ED Provider?: Yes
Interpretation: abnormal
Comparison EKG: no changes
Rate: tachycardiac
Rhythm: sinus
[place]: left axis deviation
Interval: normal interval
QRS Pattern: left vent hypertrophy
Ischemia: non-specific ST changes
*Associate Consulting Engineer Interpretation
Rate: tachycardiac
Interpretation: abnormal
Rhythm: sinus
*Critical Care Note
Total Time (30-74mins, 75-104mins- exclusive of procedures): Not Applicable
Data Reviewed
Review of Other/Old Records Reveals: Discharge Summary (Discharge summary reviewed from hospitalist from 02/2024 when she was admitted for complicated UTI)
Source: patient and family
Patient Management
Social determinants of health affecting care: Living situation and Strong social support
Discussion with other providers: Hospitalist
ED Attending Note
-
Portions of this chart may have been created with voice recognition software.� Occasional wrong word or��sound alike� substitutions may have occurred due to the inherent limitations of voice recognition software.
Discharge Plan
Departure
Patient Disposition: Admit
Date of Disposition: 05/28/24
Time of Disposition: 21:28
Admit to: Telemetry
Presentation/result/management discussed w/ accepting MD/DO: Hospitalist
Patient with high blood pressure during this ER visit?: No
Condition: Fair
Covid-19: Not Applicable
Discharge Problem:
Pulmonary embolism on right
Prescriptions:
No Action
latanoprost 0.005 % Drops
1 drp BOTH EYES HS
aspirin 81 mg Tablet,Delayed Release (Dr/Ec)
81 mg PO DAILY
acetaminophen [Tylenol Extra Strength] 500 mg Tablet
1,000 mg PO Q6HPRN PRN (Reason: mild pain)
levothyroxine 75 mcg Tablet
75 mcg PO MOTUWETHFRSA
nortriptyline 10 mg Capsule
20 mg PO HS
calcium carbonate [Calcium 500] 500 mg calcium (1,250 mg) Tablet,Chewable
500 mg PO DAILY
coenzyme Q10 [CoQ-10] 100 mg Capsule
100 mg PO DAILY
rosuvastatin 10 mg Tablet
10 mg PO HS
amlodipine-olmesartan 5-20 mg Tablet
1 tab PO HS
albuterol sulfate 90 mcg/actuation Hfa Aerosol Inhaler
2 puff INHALATION R Q4HPRN PRN (Reason: ASTHMA )
Prolia 60 mg/mL Syringe
60 mg SC [id number]
amoxicillin-pot clavulanate 875-125 mg tablet
1 tab PO Q12H Qty: 10 0RF
Patient Comments:
05/28/24: to take for 7 days, started on 05/23/24. Missed today's dose
guaifenesin [Robitussin] 100 mg/5 mL Liquid
200 mg PO Q4HPRN PRN (Reason: sob)
Referrals:
Juan Horton MD [Family Provider] -
Interventions
Interventions:
*Risk Screen - Suicide Last Done: 05/28/24 19:48
*General Assessment Last Done: 05/28/24 19:48
*Neglect/Abuse Screening Last Done: 05/28/24 19:48
ED- Fall Risk Assessment Last Done: 05/28/24 19:48
*ED COVID-19 Vaccine History Last Done: 05/28/24 19:48
ED- Cardiac Assessment Last Done: 05/28/24 20:39
ED- Pulmonary Assessment Last Done: 05/28/24 20:39
Discharge Date and Time
Print Language: BULGARIAN
[2024-05-28 22:00] VITALS: BP 142/72
[2024-05-28] MEDS: HEPARIN 4600 UNITS IV (22:09)
[2024-05-28] MEDS: HEPARIN 25000 UNITS/250 ML IV (22:09)
[2024-05-28] MEDS: TYLENOL 1000 MG PO (22:10)
--- NOTE | 2024-05-28 22:10 | HPS.HSE ---
Family Physician
-
Family Physician: Juan Horton
Chief Complaint
-
shortness of breath
History of Present Illness
88-year-old female past medical history of asthma, breast cancer, hypertension, hypothyroidism, ureteral stone, anxiety/depression, GERD, osteoporosis, chronic sinus tachycardia presenting with shortness of breath for at least 5 weeks. Patient
initially developed cough and sinus congestion and was treated with steroids which she completed without improvement. She is also recently started Augmentin for 7-day course and has 2 days left.
Patient was started on metoprolol during a prior admission for sinus tachycardia. She saw her trailer tank truck driver for the shortness of breath. The metoprolol was stopped and recommended outpatient stress test. Patient was having cough and the stress
test was postponed.
Patient recently developed left scapular pain and pain with deep breathing. She saw her primary care physician again today who ordered CT scan showing pulmonary embolism and she was referred to the emergency room.
Patient recently had ureteral stent placed in January. Patient subsequently had the stent removed. She also developed COVID at that time.
Patient denies any smoking or alcohol use.
No family history of blood clots.
Medical History
Past Medical History
Past Medical History: Reports Other (asthma, breast cancer, hypertension, hypothyroidism, ureteral stone, anxiety/depression, GERD, osteoporosis, chronic sinus tachycardia)
Past Surgical History: Reports Other (Lumpectomy, hemorrhoidectomy, mastectomy, tonsillectomy, hysterectomy, cataracts,)
Social History
Tobacco: Non-smoker
Alcohol: None
Drug: None
Family History
Family History: Not pertinent
Allergies / Home Medications
Allergies reflects when Allergies were last updated in [facility].
Home Medications with original date entered in [facility]
Allergy/Medication List:
Allergies
Allergy/AdvReac Type Severity Reaction Status Date / Time
codeine Allergy Unknown Nausea / Verified 05/28/24 19:48
Vomiting
Home Medications
acetaminophen 500 mg tablet (Tylenol Extra Strength) 1,000 mg PO Q6HPRN PRN mild pain 12/12/23
amlodipine 5 mg-olmesartan 20 mg tablet 1 tab PO HS Blood Pressure 12/12/23
aspirin 81 mg tablet,delayed release 81 mg PO DAILY Blood Clot Prevention/Tx 12/12/23
calcium carbonate (Calcium 500) 500 mg PO DAILY Supplement 12/12/23
coenzyme Q10 100 mg capsule (CoQ-10) 100 mg PO DAILY Supplement 12/12/23
latanoprost 0.005 % eye drops 1 drp BOTH EYES HS Eye Condition 12/12/23
levothyroxine 75 mcg tablet 75 mcg PO MOTUWETHFRSA Thyroid 12/12/23
nortriptyline 10 mg capsule 20 mg PO HS Neurological Condition 12/12/23
rosuvastatin 10 mg tablet 10 mg PO HS High Cholesterol 12/12/23
albuterol sulfate 90 mcg/actuation aerosol inhaler 2 puff inhalation R Q4HPRN PRN ASTHMA 12/23/23
denosumab 60 mg/mL subcutaneous syringe (Prolia) 60 mg SC [id number] 12/25/23
amoxicillin 875 mg-potassium clavulanate 125 mg tablet 1 tab PO Q12H #10 tabs 02/06/24
guaifenesin 100 mg/5 mL oral liquid 200 mg PO Q4HPRN PRN sob 05/28/24
Review of Systems
-
History Source: Patient
A 12 point ROS was completed and negative except as noted: Yes
Constitutional: Reports No Symptoms
EENT: Reports No Symptoms
Respiratory: Reports See HPI
Cardiac: Reports No Symptoms
Abdomen/GI: Reports No Symptoms
: Reports No Symptoms
Musculoskeletal: Reports No Symptoms
Skin: Reports No Symptoms
Neurological: Reports No Symptoms
Endocrine: Reports No Symptoms
Hematologic/Lymphatic: Reports No Symptoms
Psych: Reports No Symptoms
Physical Exam
Vital Signs
Vital Signs
Temp Pulse Resp BP Pulse Ox
98.4 F 102 24 135/67 97
05/28/24 19:48 05/28/24 20:30 05/28/24 20:30 05/28/24 20:15 05/28/24 20:30
Physical Exam
General: Well Developed, Well Nourished and No Apparent Distress
HEENT: NormoCephalic, Moist mucous membranes and Atraumatic
Respiratory: Clear
Cardiac: S1/S2 and Regular Rhythm; No Murmur or Rub
GI: Soft, Non Tender, Non Distended and Normal Bowel Sounds; No Organomegaly
Rectal: Deferred by Provider
Musculoskeletal: No Clubbing, No Cyanosis and No Edema
Skin: No Rash
Neuro: Nonfocal/grossly intact
Laboratory Results
-
05/28/24 20:09
05/28/24 20:09
Laboratory Results
PT 12.5 Sec (11.4-14.6) 05/28/24 20:09
INR 0.89 05/28/24 20:09
APTT Cancelled 05/28/24 21:35
Total Bilirubin Cancelled 05/28/24 20:09
AST Cancelled 05/28/24 20:09
ALT Cancelled 05/28/24 20:09
Alkaline Phosphatase Cancelled 05/28/24 20:09
Troponin I < 0.012 ng/ml 05/28/24 20:09
Data Reviewed
-
Lab Data: Labs Reviewed by me
Old Records: Reviewed
Impression/Plan
-
IMPRESSION:
PLAN:
# Chronic pulmonary embolism possibly triggered from COVID infection/urological procedures in January/February
-CT PE shows probable large chronic pulmonary emboli in the pulmonary trunk and right main pulmonary artery versus neoplasia
-Heparin drip and hold aspirin
-Check venous ultrasound, echo
-Pulmonary consulted
# Cough secondary to PE versus viral URI
-Continue amoxicillin for 2 more days to finish 7 days
-DuoNebs as needed
-Tylenol as needed
-Guaifenesin
Asthma
Breast cancer status post mastectomy
Hypothyroidism
-Continue levothyroxine
History of ureteral stone
Anxiety/depression
-Continue nortriptyline
GERD
-Continue omeprazole
Osteoporosis
-On Prolia
History of sinus tachycardia
-No longer on metoprolol
-Patient was scheduled to have stress test
Essential hypertension
-Continue amlodipine/
Full code
DVT prophylaxis�heparin drip
Regular diet
[2024-05-28 23:00] VITALS: BP 141/84; BMI 22.6
--- NOTE | 2024-05-28 23:00 | PTCARENOTE ---
Pt arrived from ED via stretcher and was pulled over to bed with family member at bedside. Pt is AAOx3, VSS, and no complaints of pain. Pt is oriented to unit, resting comfortably with call delacruz within reach.
[2024-05-28] MEDS: NORVASC 5 MG PO (23:25)
[2024-05-28] MEDS: BENICAR 20 MG PO (23:25)
[2024-05-28] MEDS: AUGMENTIN 875 MG/125 MG 1 TABLET PO (23:25)
[2024-05-29] VITALS (8 sets, daily range): BP systolic 107–143; BP diastolic 60–87
[2024-05-29 04:47] LABS: APTT 90.7 Sec (23.4-35.0)
[2024-05-29] MEDS: SYNTHROID 75 MCG PO (05:48)
[2024-05-29] MEDS: OSCAL CAL 500 500 MG PO (08:18)
[2024-05-29 10:34] LABS: COVID-19 Antigen Negative (Negative)
[2024-05-29] MEDS: AUGMENTIN 875 MG/125 MG 1 TABLET PO ×2 (12:24→21:32)
[2024-05-29 13:00] LABS: % Basophils 0.5 % (0-2); % Eosinophils 2.5 % (0-6); % Monocytes 9.6 % (1.7-9.3); % Neutrophils 69.4 % (42.2-75.2); Absolute Basophils 0.1 10^3/uL (0-0.2); Absolute Eosinophils 0.3 10^3/uL (0-0.7); Absolute Immature Granulocytes 0.1 10^3/uL (0-0.05); Absolute Lymphocytes 2.2 10^3/uL (1.2-3.4); Absolute Monocytes 1.3 10^3/uL (0.1-0.6); Absolute Neutrophils 9.2 10^3/uL (1.4-6.5); Hemoglobin 14.6 g/dL (12.0-16.0); Mean Corp Hgb Conc. 33.2 g/dL (33.0-37.0); Mean Corpuscular Hgb 30.6 pg (27.0-31.0); Mean Corpuscular Volume 92.2 fL (81.0-99.0); Mean Platelet Volume 10.5 fL (7.4-10.4); Nucleated Red Blood Cells % 0 %; Platelet Count 353 10^3/uL (130-400); Red Blood Cell Count 4.77 10^6/uL (4.20-5.40); Red Cell Dist. Width 13.4 % (11.5-14.5); White Blood Cell Count 13.2 10^3/uL (4.8-10.8)
--- NOTE | 2024-05-29 13:00 | W.PN.HOSP.TC ---
Today's Communication/Plan
-
see PN
CM to choi/provide coupon for Eliquis starter pack
Assessment / Plan
Assessment / Plan
88yo F with PMHx of nephrolithiasis, HTN, hypothyroidism, osteoporosis, HLD brought back after outpatient CT showed PE. Patient developed SOB after 2 hospitalizations past summer and was not much improving with trial of steroids. Recently had acute
URI, that is currently improving
A/P:
#[place] chronic pulmonary embolism vs neoplasia
Heparin drip then DOAC
Pulmonology for further mgmt
LE US neg for DVT
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
#Leukocytosis
#Acute upper respiratory infection
Cont augmentin
#HLD
#Osteoporosis
#Hypothyroidism
#glaucoma
#essential HTN
#Hx of breast CA s/p mastectomy
#GERD
#Anxiety d/o
Cont home meds
follow up with established automotive exhaust emissions technician for planned stress test
DVT ppx - hep drip
Full code
I have spent at least 57min reviewing chart, test results, communicating with consultants and direct patient care
Anticipated Discharge: Within 24 hours
Subjective/Interval History
-
Date of Service: May 29, 2024
Objective Data
-
Labs:
Laboratory Results
05/29/24 05/29/24
04:29 12:29
WBC 13.2 H
Hgb 14.6
Hct 44.0
Plt Count 353
APTT 90.7 H Pending
Sodium Pending
Potassium Pending
Chloride Pending
Carbon Dioxide Pending
BUN Pending
Creatinine Pending
Glucose Pending
Calcium Pending
Total Bilirubin Pending
AST Pending
ALT Pending
Alkaline Phosphatase Pending
Vital Signs:
Vital Signs
Temp Pulse Resp BP Pulse Ox
97.9 F 101 16 143/87 98
05/29/24 12:22 05/29/24 12:22 05/29/24 12:22 05/29/24 12:22 05/29/24 12:22
I&O
05/28/24 05/29/24 05/30/24
06:59 06:59 06:59
Intake Total 480 / 480
Balance 480 / 480
Review of Systems
-
History Source: Patient
All other systems: Reviewed and negative
Respiratory: Reports Cough and Trouble Breathing
Physical Exam
-
General: Comfortable
HEENT: Normocephalic and Atraumatic
Respiratory: Clear to Auscultation
Cardiac: Regular Rhythm
GI: Soft, Nontender and Nondistended
Musculoskeletal: No Clubbing, No Cyanosis and No Edema
Skin: Warm
Neuro: Awake, Alert, Oriented and AO x 3
Psych: Calm
--- NOTE | 2024-05-29 13:09 | CON.PUL ---
Consultation
Consultation Request
Date/Time Consultation Requested: 05/29/2024
Date/Time Consultation Performed: 05/29/2024
Requesting Provider: Dr. Lara
Performing Provider: DR. Lara
Reason for Consultation: Dr. Juan C Mendes
Medical History
-
History of Present Illness:
88-year-old female past medical history of asthma, breast cancer, hypertension, hypothyroidism, ureteral stone, anxiety/depression, GERD, osteoporosis, chronic sinus tachycardia presenting with shortness of breath for at least 5 weeks, mainly with
exertion.
Patient initially developed cough and sinus congestion and was treated with steroids which she completed without improvement.
Recently also started on Augmentin for 7 days due to coughing. 2 more days of left. She denies any fever.
Denies hemoptysis.
She was being see follows up with cardiology. For sinus tachycardia and started on metoprolol.
Due to coughing stress test and further cardiac evaluation was postponed.
-
Due to pleuritic type chest pain and left scapular pain primary doctor ordered CT chest that demonstrated chronic thromboembolic disease. Now admitted.
It is noted that the patient has a questional history of asthma does not follow-up with pulmonary. Only using albuterol as needed
Denies any wheezing.
Past Medical History
Past Medical History: Other (See assessment and plan)
Social History
Tobacco: Non-smoker
Alcohol: None
Drug: None
Employment: Retired
Family History
Family History: Reviewed & Not Pertinent
Allergies / Home Medications
Allergies
Allergy/AdvReac Type Severity Reaction Status Date / Time
codeine Allergy Nausea / Verified 05/28/24 23:02
Vomiting
Home Medications
�Medication �Instructions �Recorded �Confirmed �Last Taken �Type
acetaminophen 500 mg tablet 1,000 mg PO Q6HPRN PRN mild pain 12/12/23 05/28/24 05/27/24 History
(Tylenol Extra Strength)
amlodipine 5 mg-olmesartan 20 mg 1 tab PO HS Blood Pressure 12/12/23 05/28/24 05/27/24 History
tablet
aspirin 81 mg tablet,delayed 81 mg PO DAILY Blood Clot 12/12/23 05/28/24 05/28/24 History
release Prevention/Tx
calcium carbonate (Calcium 500) 500 mg PO DAILY Supplement 12/12/23 05/28/24 05/28/24 History
coenzyme Q10 100 mg capsule 100 mg PO DAILY Supplement 12/12/23 05/28/24 05/28/24 History
(CoQ-10)
latanoprost 0.005 % eye drops 1 drp BOTH EYES HS Eye Condition 12/12/23 05/28/24 05/27/24 History
levothyroxine 75 mcg tablet 75 mcg PO MOTUWETHFRSA Thyroid 12/12/23 05/28/24 05/28/24 History
nortriptyline 10 mg capsule 20 mg PO HS Neurological Condition 12/12/23 05/28/24 05/27/24 History
rosuvastatin 10 mg tablet 10 mg PO HS High Cholesterol 12/12/23 05/28/24 05/27/24 History
albuterol sulfate 90 mcg/actuation 2 puff inhalation R Q4HPRN PRN 12/23/23 05/28/24 05/28/24 History
aerosol inhaler ASTHMA
denosumab 60 mg/mL subcutaneous 60 mg SC [id number] 12/25/23 05/28/24 6 Months Ago History
syringe (Prolia) ~11/27/23
amoxicillin 875 mg-potassium 1 tab PO Q12H #10 tabs 02/06/24 05/28/24 05/27/24 Rx
clavulanate 125 mg tablet
guaifenesin 100 mg/5 mL oral liquid 200 mg PO Q4HPRN PRN sob 05/28/24 05/28/24 Unknown History
Review of Systems
-
History Source: Patient
All other systems: Negative unless noted
Vitals / Labs / Diagnostic Testing
Vital Signs
Temp Pulse Resp BP Pulse Ox
97.9 F 101 16 143/87 98
05/29/24 12:22 05/29/24 12:22 05/29/24 12:22 05/29/24 12:22 05/29/24 12:22
Lab Data
05/29/24 12:29
Laboratory Results
05/28/24 05/28/24 05/29/24
20:09 21:35 04:29
PT 12.5
INR 0.89
APTT 26.8 Cancelled 90.7 H
Microbiology
05/29/24 09:48 Nasal Swab Influenza Types A & B (TOÑO) - Final
Negative for Influenza A & B, NAAT
Negative results must be combined with clinical observations
and patient history.
Nucleic Acid Amplification test (NAAT)performed on the
[employer] platform.
Diagnostic Testing:
Physical Exam
-
HEENT: Normocephalic
Cardiovascular: S1/S2
Respiratory: Non-Labored Respirations
GI: Soft and Non Distended
Neurology: Awake, Alert and No Motor Deficits
Skin: Warm
General: Comfortable
Assessment
-
88-year-old woman with past medical history noted admitted with pleuritic type chest pain, shortness of breath for about 5 weeks and coughing. Found to have abnormal CT chest with what appears to be chronic thromboembolic disease versus neoplasia.
We were consulted on 05/29/2024 for evaluation
Shortness of breath for the last 5 weeks-currently improved.
No oxygen requirement
Has been followed by cardiology in the outpatient for sinus tachycardia. Stress test helped due to coughing.
Pulmonary embolism-possibly chronic-risk factor includes hospitalization in December and January with ureteral stents/COVID in January as well.
CT angiogram of the chest: Possible chronic thromboembolic disease versus mass.
Troponin negative/proBNP normal
Echocardiogram 05/11/2024: Normal RV function. Moderate to severe pulmonary hypertension. Normal LVEF.
Chronic cough-postinfectious/cough variant asthma versus underlying abnormal CT chest.
Conditions present prior admission:
Asthma-treated with albuterol HFA-does not follow-up with pulmonary.
breast cancer longer than 40 years ago
hypertension
hypothyroidism
ureteral stone
History of complicated UTI: In December and January status post left double-J stent placements with history of stones.
anxiety/depression
GERD,
osteoporosis
chronic sinus tachycardia)
Past Surgical History: Reports Other (Lumpectomy, hemorrhoidectomy, mastectomy, tonsillectomy, hysterectomy, cataracts,)
Assessment and plan:
Subacute/chronic shortness of breath for about 5 weeks-CT chest noted with possible chronic thromboembolic disease versus neoplasia.
Not on oxygen re supplementation, denies any significant complaints she feels better overall since admission.
Sinus tachycardia noted.
-
At this point I agree with heparin drip, hopefully can transition to oral anticoagulants tomorrow.
Echocardiogram does not show any significant RV dysfunction, only some pulmonary hypertension which is explained by the clock, lower extremity Dopplers without DVT.
Likely will need lifelong anticoagulation-will be discussed in the outpatient setting.
Will need radiographic follow-up as well.
-
Risk factors as above COVID, urological procedures and December and January.
Family states that patient is very active. Able to walk around the house without significant problems.
-
If patient would like to further evaluate possibility of a tumor, a PET/CT will be helpful. Patient is unsure that she would like to pursue aggressive care at this point. Will be an ongoing discussion in the outpatient setting.
To my view on CAT scans without significant enlarging lymph nodes or bony lesions.
This can be discussed at the outpatient setting.
-
Will check a D-dimer for baseline.
-
Chronic cough: Either postinfectious, cannot rule out cough variant asthma.
Patient states that she feels better. Not bronchospastic on exam.
Okay to use albuterol as needed
If cough is persistent in the outpatient setting we can consider inhaled corticosteroids.
Okay to complete 2 more days of Augmentin. Did not suspect ongoing infection.
Continue with symptomatic management
-
Home oxygen assessment tomorrow. Order has been placed.
-
I recommend outpatient pulmonary follow-up. Information will be left in the chart.
[facility] records indicates that she does not follow-up in our office.
-
Dr. Mendes discussed in detail with brook who was at the bedside 05/29/2024.

Data reviewed:
CT angiogram 05/28/2024:
There is a large area of hypodensity with a small linear focus of calcification in the anterior right lateral margin of the pulmonary trunk extending into the right main pulmonary artery. This is seen best about image 103 series 604 through image
136. There is decreased size of the right upper lobe pulmonary arteries. . There are peripheral nodular opacities in the right upper lobe as well as well as atelectasis.This probably is chronic pulmonary embolus. Neoplasia cannot be completely
excluded These findings are all new..
There is mild bibasilar atelectasis versus scarring.
There is moderate atherosclerotic vascular disease.
Osseous structures show mild scoliosis and mild degenerative disease. Interval is
There is no aortic dissection.
There is no pneumothorax.
There are no abnormal pleural or parenchymal masses.
There is no pleural effusion.
There is a subcarinal lymph node measuring 2 cm. This is stable. The stability suggests neoplasia is less likely.
There is no hilar or mediastinal lymphadenopathy.
There is no axillary lymphadenopathy.
-
Echocardiogram 05/11/2024:
Normal left ventricular systolic function. LV ejection fraction is 60-65%.
Aortic sclerosis without stenosis.
Normal right ventricular size and function.
Mild tricuspid regurgitation. Moderately elevated PASP. Estimated pulmonary
artery pressure of 48 mmHg assuming a right atrial pressure of 3 mmHg.
Compared to 08/15/22: PASP has increased from 37 mmHg to 48 mmHg. TR has
progressed from mild to mild/moderate.
Lower extremity Dopplers 05/29/2024: Negative for DVT.
[2024-05-29 13:20] LABS: APTT 124.3 Sec (23.4-35.0)
[2024-05-29 13:30] LABS: ALT (SGPT) 20 U/L (0-35); AST (SGOT) 27 U/L (14-36); Albumin 4.3 g/dl (3.5-5.0); Alkaline Phosphatase 76 U/L (38-126); Blood Urea Nitrogen 14 mg/dl (7-17); Calcium 9.7 mg/dl (8.4-10.2); Carbon Dioxide 25 mmol/L (22-30); Chloride 98 mmol/L (98-107); Estimated Creatinine Clearance 44 ml/min; Glucose 108 mg/dl (70-99); Potassium 4.3 mmol/L (3.5-5.1); Sodium 134 mmol/L (135-145); Total Bilirubin 0.5 mg/dl (0.2-1.3); Total Protein 7.4 g/dl (6.3-8.2); eGFR > 60.00
--- NOTE | 2024-05-29 17:09 | CM ---
Alert awake oriented patient who lives alone who lives in a 1 story home with 3 steps to enter..She is independent in activates of daily living.She does drive .No adaptive devices.
Had VN in past . No SNF hx
Pharmacy [facility]
PCP Dr Horton
PLAN Home with no needs
--- NOTE | 2024-05-29 18:28 | PTCARENOTE ---
Patient received as transfer from 4E to room 329. Telemetry monitoring (sinus rhythm/sinus tachy 100 bpm) and Heparin drip maintained per orders. Call delacruz in reach. Visitors bedside.
[2024-05-29 20:25] LABS: APTT 80.2 Sec (23.4-35.0)
[2024-05-29] MEDS: CRESTOR 10 MG PO (21:32)
[2024-05-29] MEDS: PAMELOR 20 MG PO (21:33)
[2024-05-29] MEDS: BENICAR 20 MG PO (21:33)
[2024-05-29] MEDS: NORVASC 5 MG PO (21:33)
[2024-05-30] MEDS: HEPARIN 25000 UNITS/250 ML IV (01:03)
[2024-05-30 02:38] LABS: APTT 64.3 Sec (23.4-35.0)
[2024-05-30 03:00] VITALS: BP 97/61
[2024-05-30] MEDS: HEPARIN 2300 UNITS IV (03:00)
[2024-05-30] MEDS: SYNTHROID 75 MCG PO (05:42)
[2024-05-30 07:10] VITALS: BP 98/54
[2024-05-30] MEDS: OSCAL CAL 500 500 MG PO (08:04)
[2024-05-30] MEDS: AUGMENTIN 875 MG/125 MG 1 TABLET PO (09:15)
[2024-05-30 09:30] LABS: Hematocrit 42.4 % (37.0-47.0); Hemoglobin 14.4 g/dL (12.0-16.0); Mean Corpuscular Hgb 30.7 pg (27.0-31.0); Mean Corpuscular Volume 90.4 fL (81.0-99.0); Platelet Count 307 10^3/uL (130-400); Red Blood Cell Count 4.69 10^6/uL (4.20-5.40); Red Cell Dist. Width 13.6 % (11.5-14.5); White Blood Cell Count 13.7 10^3/uL (4.8-10.8)
[2024-05-30 09:41] LABS: APTT 125.8 Sec (23.4-35.0); D-Dimer 0.83 ug/mlFEU (0.00-0.50)
--- NOTE | 2024-05-30 10:06 | W.PN.HOSP.TC ---
Today's Communication/Plan
-
DC
Assessment / Plan
Assessment / Plan
88yo F with PMHx of nephrolithiasis, HTN, hypothyroidism, osteoporosis, HLD brought back after outpatient CT showed PE. Patient developed SOB after 2 hospitalizations past summer and was not much improving with trial of steroids. Recently had acute
URI, that is currently improving
A/P:
#Large chronic pulmonary embolism vs neoplasia
Heparin drip then DOAC as per pulm
Pulmonology for further mgmt
LE US neg for DVT
Recent Echo on 05/08/24 - pulmonary HTN, moderate TR - most likely 2/2 VTE causing increased pulmonary vasculature pressures
#Leukocytosis
#fever
#Acute upper respiratory infection
Cont augmentin
symptoms also can be 2/2 PE
no pneumonia on CT
#HLD
#Osteoporosis
#Hypothyroidism
#glaucoma
#essential HTN
#Hx of breast CA s/p mastectomy
#GERD
#Anxiety d/o
Cont home meds
follow up with established advertising assistant for planned stress test
DVT ppx - hep drip
Full code
I have spent at least 57min reviewing chart, test results, communicating with consultants and direct patient care
Anticipated Discharge: Today
Subjective/Interval History
-
Date of Service: May 30, 2024
Objective Data
-
Labs:
Laboratory Results
05/30/24 05/30/24
02:16 09:14
WBC 13.7 H
Hgb 14.4
Hct 42.4
Plt Count 307
APTT 64.3 H 125.8 H
Vital Signs:
Vital Signs
Temp Pulse Resp BP Pulse Ox
97.6 F 99 17 98/54 95
05/30/24 07:10 05/30/24 07:10 05/30/24 07:10 05/30/24 07:10 05/30/24 07:10
I&O
05/29/24 05/30/24 05/31/24
06:59 06:59 06:59
Intake Total 480 / 480 240 / 240
Balance 480 / 480 240 / 240
Review of Systems
-
History Source: Patient
All other systems: Reviewed and negative
Respiratory: Reports Pleurisy (R)
Physical Exam
-
General: No Apparent Distress
Neuro: Awake, Alert, Oriented and AO x 3
Psych: Calm
--- NOTE | 2024-05-30 10:12 | W.DCSUMMARY ---
Discharge Summary
Discharge Data
Date of Admission: 05/28/24
Date of Discharge: 05/30/24
-
Pending Results: No
Hospital Course
88yo F with PMHx of nephrolithiasis, HTN, hypothyroidism, osteoporosis, HLD brought back after outpatient CT showed PE. Patient developed SOB after 2 hospitalizations past summer and was not much improving with trial of steroids. Recently had acute
URI, that is currently improving. Pulm evaluated, recommended DOAC that was started on 05/30/24 - CM to [employer]ov[employer] coupon for starter pack. As per pulm discussion - patient might be appropriate for PET, but she and family unclear if they would like to
pursue it. Outpatient Pulmonology advised. Medically stable for d/c home
I have spent at least 37min reviewing chart, test results, communicating with consultants and direct patient care
patient was managed for:
#Large chronic pulmonary embolism vs neoplasia
#Leukocytosis
#fever
#Acute upper respiratory infection
#HLD
#Osteoporosis
#Hypothyroidism
#glaucoma
#essential HTN
#Hx of breast CA s/p mastectomy
#GERD
#Anxiety d/o
Discharge Plan
-
Patient Disposition: Home (Routine Discharge)
Condition: Fair
Diet: Low Cholesterol
Activity: As tolerated
Driving Restrictions: As prior to admission
Referrals:
Juan Horton MD [Family Provider] -
Juan C Burgos MD [Active] - in four to six weeks (PFT/6MWT)
Prescriptions:
New
Eliquis DVT-PE Treat 30D Start 5 mg (74 tabs) tablets,dose pack
See Rx Instructions .ROUTE .COMPLEX Qty: 74 0RF
Rx Instructions:
take 10mg BID until PM dose 06/05/24, start 5mg BID in AM 06/06/24
Continued
latanoprost 0.005 % Drops
1 drp BOTH EYES HS
aspirin 81 mg Tablet,Delayed Release (Dr/Ec)
81 mg PO DAILY
acetaminophen [Tylenol Extra Strength] 500 mg Tablet
1,000 mg PO Q6HPRN PRN (Reason: mild pain)
levothyroxine 75 mcg Tablet
75 mcg PO MOTUWETHFRSA
nortriptyline 10 mg Capsule
20 mg PO HS
calcium carbonate [Calcium 500] 500 mg calcium (1,250 mg) Tablet,Chewable
500 mg PO DAILY
coenzyme Q10 [CoQ-10] 100 mg Capsule
100 mg PO DAILY
rosuvastatin 10 mg Tablet
10 mg PO HS
amlodipine-olmesartan 5-20 mg Tablet
1 tab PO HS
albuterol sulfate 90 mcg/actuation Hfa Aerosol Inhaler
2 puff INHALATION R Q4HPRN PRN (Reason: ASTHMA )
Prolia 60 mg/mL Syringe
60 mg SC [id number]
amoxicillin-pot clavulanate 875-125 mg tablet
1 tab PO Q12H Qty: 10 0RF
Patient Comments:
05/28/24: to take for 7 days, started on 05/23/24. Missed today's dose
guaifenesin 100 mg/5 mL Liquid
200 mg PO Q4HPRN PRN (Reason: sob)
Discharge Orders:
Discharge Patient (As Directed); Ordered 05/30/24
Ordered By: Aiden Lara
Discharge Date and Time
Print Language: ANDORRAN
[2024-05-30] MEDS: ELIQUIS 10 MG PO (10:21)
--- NOTE | 2024-05-30 10:24 | CM ---
MD entered order for discharge.
Pt said she is ready for dc. Dgt will drive her home . [employer] coupon given for first month free.
Offered Vn she declined need.
PLAn Home no needs
--- NOTE | 2024-05-30 18:11 | W.PN.PUL3 ---
Today's Communication / Plan
-
Transition to oral anticoagulation
Follow-up imaging recommended as outpatient. Information left in chart
Disposition efforts
Assessment
-
88-year-old woman with past medical history noted admitted with pleuritic type chest pain, shortness of breath for about 5 weeks and coughing. Found to have abnormal CT chest with what appears to be chronic thromboembolic disease versus neoplasia.
We were consulted on 05/29/2024 for evaluation
Shortness of breath for the last 5 weeks-currently improved.
No oxygen requirement
Has been followed by cardiology in the outpatient for sinus tachycardia. Stress test helped due to coughing.
Pulmonary embolism-possibly chronic-risk factor includes hospitalization in December and January with ureteral stents/COVID in January as well.
CT angiogram of the chest: Possible chronic thromboembolic disease versus mass.
Troponin negative/proBNP normal
Echocardiogram 05/11/2024: Normal RV function. Moderate to severe pulmonary hypertension. Normal LVEF.
Chronic cough-postinfectious/cough variant asthma versus underlying abnormal CT chest.
Conditions present prior admission:
Asthma-treated with albuterol HFA-does not follow-up with pulmonary.
breast cancer longer than 40 years ago
hypertension
hypothyroidism
ureteral stone
History of complicated UTI: In December and January status post left double-J stent placements with history of stones.
anxiety/depression
GERD,
osteoporosis
chronic sinus tachycardia)
Past Surgical History: Reports Other (Lumpectomy, hemorrhoidectomy, mastectomy, tonsillectomy, hysterectomy, cataracts,)
Assessment and plan:
Subacute/chronic shortness of breath for about 5 weeks-[address] chest noted with possible chronic thromboembolic disease versus neoplasia.
Not on oxygen re supplementation, denies any significant complaints she feels better overall since admission.
Sinus tachycardia noted.
-
Patient appears to be improved overall
Echocardiogram does not show any significant RV dysfunction, only some pulmonary hypertension which is explained by the clock, lower extremity Dopplers without DVT.
Likely will need lifelong anticoagulation-will be discussed in the outpatient setting.
Will need radiographic follow-up as well.
Transition to oral anticoagulation
-
Risk factors as above COVID, urological procedures and December and January.
Family states that patient is very active. Able to walk around the house without significant problems.
-
If patient would like to further evaluate possibility of a tumor, a PET/CT will be helpful. Patient is unsure that she would like to pursue aggressive care at this point. Will be an ongoing discussion in the outpatient setting.
To my view on CAT scans without significant enlarging lymph nodes or bony lesions.
This can be discussed at the outpatient setting.
Overall cough has improved
Check ambulatory saturation
-
I recommend outpatient pulmonary follow-up. Information will be left in the chart.
[facility] records indicates that she does not follow-up in our office.
-
Reviewed with daughter at bedside

Data reviewed:
CT angiogram 05/28/2024:
There is a large area of hypodensity with a small linear focus of calcification in the anterior right lateral margin of the pulmonary trunk extending into the right main pulmonary artery. This is seen best about image 103 series 604 through image
136. There is decreased size of the right upper lobe pulmonary arteries. . There are peripheral nodular opacities in the right upper lobe as well as well as atelectasis.This probably is chronic pulmonary embolus. Neoplasia cannot be completely
excluded These findings are all new..
There is mild bibasilar atelectasis versus scarring.
There is moderate atherosclerotic vascular disease.
Osseous structures show mild scoliosis and mild degenerative disease. Interval is
There is no aortic dissection.
There is no pneumothorax.
There are no abnormal pleural or parenchymal masses.
There is no pleural effusion.
There is a subcarinal lymph node measuring 2 cm. This is stable. The stability suggests neoplasia is less likely.
There is no hilar or mediastinal lymphadenopathy.
There is no axillary lymphadenopathy.
-
Echocardiogram 05/11/2024:
Normal left ventricular systolic function. LV ejection fraction is 60-65%.
Aortic sclerosis without stenosis.
Normal right ventricular size and function.
Mild tricuspid regurgitation. Moderately elevated PASP. Estimated pulmonary
artery pressure of 48 mmHg assuming a right atrial pressure of 3 mmHg.
Compared to 08/15/22: PASP has increased from 37 mmHg to 48 mmHg. TR has
progressed from mild to mild/moderate.
Lower extremity Dopplers 05/29/2024: Negative for DVT.
Subjective Data
-
Date of Service:
Date of Service: May 30, 2024
Subjective:
Patient seen earlier today, late entry. Daughter at bedside. Patient denies shortness of breath, lightheadedness, chest pain, cough
Objective Data
Data Reviewed
Vital Signs / I&O / Oxygen:
Vital Signs
Temp Pulse Resp BP Pulse Ox
97.6 F 99 17 98/54 95
05/30/24 07:10 05/30/24 07:10 05/30/24 07:10 05/30/24 07:10 05/30/24 07:10
Intake and Output
05/29/24 05/30/24 05/31/24
06:59 06:59 06:59
Intake Total 480 / 480 240 / 240
Balance 480 / 480 240 / 240
SaO2 95
Physical Exam
General: Comfortable
HEENT: Normocephalic and Anicteric
Cardiovascular: S1-S2, Regular Rhythm, Murmur (n) and Rub (n)
Respiratory: Wheeze (n), Crackles (n), Rhonchi (n) and Non-Labored Respirations
GI: Soft, Non Distended and Non Tender
Neurology: Awake and Alert
Skin: Cyanosis (n), Jaundice (n) and Rash (n)
Labs/Micro/Reports
Lab Data
05/30/24 09:14
05/29/24 12:29
Laboratory Results
05/29/24 05/30/24 05/30/24
20:09 02:16 09:14
APTT 80.2 H 64.3 H 125.8 H
Microbiology
05/29/24 09:48 Nasal Swab Influenza Types A & B (TOÑO) - Final
Negative for Influenza A & B, NAAT
Negative results must be combined with clinical observations
and patient history.
Nucleic Acid Amplification test (NAAT)performed on the
[employer] platform.
== END 2024-05-30 11:05 | disposition home or self-care (01) | DRG 181 ==
LOC: 3 WEST ACU 22:28
PROVIDERS: ADMITTING PHYSICIAN Hospitalist; ATTENDING PHYSICIAN Internal Medicine; EMERGENCY PHYSICIAN Emergency Medicine; FAMILY PHYSICIAN Family Medicine; OTHER PHYSICIAN Internal Medicine Critical Care Medicine
DX: D49.1 Neoplasm of unspecified behavior of respiratory system (principal); I27.82 Chronic pulmonary embolism; J06.9 Acute upper respiratory infection, unspecified; E78.00 Pure hypercholesterolemia, unspecified; M81.0 Age-related osteoporosis without current pathological fracture; E03.9 Hypothyroidism, unspecified; H40.9 Unspecified glaucoma; I10 Essential (primary) hypertension; K21.9 Gastro-esophageal reflux disease without esophagitis; F41.9 Anxiety disorder, unspecified; J45.998 Other asthma; F32.A Depression, unspecified; R00.0 Tachycardia, unspecified; M19.90 Unspecified osteoarthritis, unspecified site; I27.20 Pulmonary hypertension, unspecified; I07.1 Rheumatic tricuspid insufficiency; Z85.3 Personal history of malignant neoplasm of breast; Z86.16 Personal history of COVID-19; Z11.52 Encounter for screening for COVID-19; Z79.82 Long term (current) use of aspirin
CPT/HCPCS: 93308; 71046; 80048; 80053; 83880; 84484; 85025; 85027; 85379; 85610; 85730; 87502; 87811; 93005; 93321; 93325; 93970; 99285

== ENCOUNTER → 2024-11-05 10:39 | Outpatient (REF) | payer OTHER, SELFPAY | LOC: HWRAD 10:39 | PROVIDERS: ATTENDING PHYSICIAN Internal Medicine Critical Care Medicine; FAMILY PHYSICIAN Family Medicine | DX: R91.1 Solitary pulmonary nodule (principal); Z86.711 Personal history of pulmonary embolism | CPT/HCPCS: 36415; 71250; 85379 ==

== ENCOUNTER → 2024-11-18 12:37 | Outpatient (REF) | payer OTHER, SELFPAY | LOC: RCS 12:37 | PROVIDERS: ATTENDING PHYSICIAN Internal Medicine; FAMILY PHYSICIAN Family Medicine | DX: I26.99 Other pulmonary embolism without acute cor pulmonale (principal); R06.09 Other forms of dyspnea; I27.20 Pulmonary hypertension, unspecified; I31.39 Other pericardial effusion (noninflammatory) | CPT/HCPCS: 93306 ==

== ENCOUNTER 2024-11-19 17:07 | Inpatient (IN) | payer OTHER, SELFPAY ==
[2024-11-19] VITALS (11 sets, daily range): BP systolic 119–144; BP diastolic 63–92; BMI 23.7; BMI 22.6
[2024-11-19 13:04] LABS: % Eosinophils 4.3 % (0-6); % Immature Granulocytes 0.2 % (0-0.5); % Lymphocytes 27.4 % (20.5-51.1); % Monocytes 7.2 % (1.7-9.3); % Neutrophils 59.9 % (42.2-75.2); Absolute Basophils 0.1 10^3/uL (0-0.2); Absolute Eosinophils 0.3 10^3/uL (0-0.7); Absolute Lymphocytes 1.7 10^3/uL (1.2-3.4); Absolute Monocytes 0.5 10^3/uL (0.1-0.6); Absolute Neutrophils 3.7 10^3/uL (1.4-6.5); Hematocrit 35.5 % (37.0-47.0); Hemoglobin 12.1 g/dL (12.0-16.0); Mean Corp Hgb Conc. 34.1 g/dL (33.0-37.0); Mean Corpuscular Hgb 31.2 pg (27.0-31.0); Mean Corpuscular Volume 91.5 fL (81.0-99.0); Mean Platelet Volume 10.1 fL (7.4-10.4); Nucleated Red Blood Cells % 0 %; Platelet Count 295 10^3/uL (130-400); Red Blood Cell Count 3.88 10^6/uL (4.20-5.40); Red Cell Dist. Width 13.2 % (11.5-14.5); White Blood Cell Count 6.2 10^3/uL (4.8-10.8)
[2024-11-19 13:34] LABS: ALT (SGPT) 13 U/L (0-35); AST (SGOT) 21 U/L (14-36); Albumin 4.3 g/dl (3.5-5.0); Alkaline Phosphatase 53 U/L (38-126); Blood Urea Nitrogen 24 mg/dl (7-17); Calcium 9.5 mg/dl (8.4-10.2); Carbon Dioxide 24 mmol/L (22-30); Chloride 107 mmol/L (98-107); Estimated Creatinine Clearance 43 ml/min; Glucose 116 mg/dl (70-99); Sodium 140 mmol/L (135-145); Total Bilirubin 0.4 mg/dl (0.2-1.3); Total Protein 7.9 g/dl (6.3-8.2); eGFR > 60.00
[2024-11-19 13:36] LABS: NT-proBNP 983 pg/ml; Troponin I < 0.012 ng/ml
--- NOTE | 2024-11-19 14:01 | ED.GENMED ---
History of Present Illness
General
Chief Complaint: Breathing Problem
Time Seen by Provider: 11/19/24 12:29
History of Present Illness
History of Present Illness:
89-year-old female presents to the emergency department for evaluation of exertional chest tightness and shortness of breath that has been worsening for the past 2 weeks. She was diagnosed with a pulmonary embolism in May and after a 6-month
period was taken off the Eliquis on November 05, symptoms seem to be progressing since that time. Had an outpatient echocardiogram yesterday showing severe pulmonary arterial hypertension and was thus sent to the ED for evaluation of her recurrent PE.
She denies any chest pain at present. No recent fevers or chills. Of note her last echocardiogram at the time of her PE diagnosis showed pulmonary artery hypertension measured at approximately 64 mmHg compared to 85 to 90 mmHg today.
Her grain cleaner and transfer operator advised that she restart her Eliquis and she took a dose last night as well as this morning, 5 mg each
Past History
Past History
ED Past Medical History: Asthma, Cancer (Breast cancer, Uterine CA), GERD, HTN, Hypercholesterolemia, Hypothyroidism and Other (Osteoarthritis. Sciatica, Hiatal hernia, renal calculus, Glaucoma, )
ED Past Surgical History: Appendectomy, Gynecological (Hysterectomy), Tonsilectomy and Other (Left radical mastectomy, cataracts, Right breast lumpectomy, Hemorrhoidectomy)
Social History
Tobacco: Non-smoker
Alcohol: None
Drug: None
Personal:
Living: alone
Employment: Retired
Family History
Family History: Other
Review of Systems
Review of Systems
Allergies reviewed?: Yes
All Other Systems: ROS reviewed and negative except as documented in HPI and ROS
Phy Exam
Physical Exam
Physical Exam:
GEN: Well appearing, NAD, WDWN
HEENT: Oral mucosa moist, no scleral icterus
Cardiac: Regular rate and rhythm, holosystolic murmur
Lung: No respiratory distress, no tachypnea, lungs clear to auscultation
MSK: No gross deformity or injuries
Skin: Good color, no pallor or jaundice, no rashes
Neuro: AO x3, moves all extremities freely
Psych: Calm, cooperative
Scores
Heart Failure Risk
Heart Failure Risk Score: Not Applicable
Course
Orders/Labs/Results
Orders:
Orders
11/19/24 Breakfast
Cholesterol Lowering
At Your Request: Full Participation
Cholesterol Lowering: Sodium, 2 Gram
11/19/24 12:43
Electrocardiogram (*1) Urgent
Reason for Study: Shortness of Breath
EKG- Treatment ONCE
11/19/24 12:44
CT Chest PE Study Urgent
Comment:
Reason For Exam: SOB/chest pain, abnml echo
11/19/24 12:55
Complete Blood Count/With Diff Urgent
Comprehensive Metabolic Panel Urgent
NT-proBNP Urgent
Troponin I Urgent
11/19/24 15:[address] Non Medication Order As Directed
Physician Order: PTT 6 hours after initial start of Heparin infusion
Above order entered?: Yes
11/19/24 15:46
PTT Urgent
Comment: Obtain baseline before beginning heparin infusion if not already collected
11/19/24 16:00
Heparin 4,700 units IV PRN PRN
Heparin 44452 Units/250 ml 25,000 units in 250 ml IV PER PROTOCOL
Weight to be used for heparin protocol in kilograms (kg):: 58.7
Protocol:: DVT/PE
PTT Goal Range to be used:: PTT 73 to 111 seconds
Order type:: Initial
INITIAL Infusion Dose (UNITS/KG/hr) & then follow protocol:: 18 units/kg/hr
Infusion Dose in UNITS/hr & then follow protocol (UNITS/hr):: 1,100
INFUSION RATE in mL/hr & then follow protocol (mL/hr):: 11
For DVT/PE algorithm, re-bolus for low PTT?: Yes
PTT less than or equal to 64 seconds:: Re-bolus 80 units/kg (max 10,000units). Increase by 200 units/hr
(+ 2mL/hr)
PTT 64.1 to 72.9 seconds:: Re-bolus 40 units/kg (max 5,000 units). Increase by 100 units/hr
(+ 1mL/hr)
PTT 73 to 111 seconds:: Target Range. No change in rate.
PTT 111.1 to 130.9 seconds:: Decrease rate by 100 units/hr (- 1 mL/hr)
PTT 131 to 199.9 seconds:: HOLD for 1 hr. Then decrease by 200 units/hr (- 2mL/hr)
PTT greater than or equal to 200 seconds:: HOLD for 2 hrs & Notify Provider. Then decrease by 200 units/hr
(- 2mL/hr)
Lab follow-up:: Each change, PTT q6h until 2 consecutive are therapeutic. Then
PTT daily.
11/19/24 16:01
Heparin 2,300 units IV PRN PRN
11/19/24 16:39
Admit/Transfer Patient As Directed
Co-Sign Provider:
Level of Care: Inpatient admission
Assign to:: ICU
Physician / Group: rm
Diagnosis: Progressive acute on chr PE with progressive severe PHT
Reason for Hospitalization: Progressive acute on chr PE with progressive severe PHT
Expected length of stay greater than two midnights?: Yes
ELOS- Estimated Length of Stay in days: 3
I certify the patient meets the requirements for IP care: Yes
11/19/24 16:42
Code Status As Directed
Resuscitation Status: Full Code
11/19/24 16:51
[facility] CONSULT Routine
Consulting Provider: James Chandra
Was physician already notified: Yes
Procedure being ordered, including laterality if applicable: possible thrombolysis/thrombectomy, PE evaluation
Acknowledgement that appropriate orders are entered: N/A
11/19/24 18:15
Acetaminophen [Tylenol] 1,000 mg PO Q6HPRN PRN mild pain
Albuterol [ProAIR HFA INHALER] 2 puff INH R Q4HPRN PRN ASTHMA
11/19/24 18:15
Logistics Tech Consult Routine
Consulting Provider: Juan C Burgos
Was physician already notified: Yes
Reason for consult: Pregressive acute on chr PE with progressive severe PHT
Activity As Directed
Activity Level: With Assistance
Bladder Scan As Directed
Follow Bladder Retention/Intermittent Cath Algorithm?: Yes
Frequency: Per Retention Algorithm
Comment: as per intermittent urinary catheter algorithm
Bladder Scan As Directed
Follow Bladder Retention/Intermittent Cath Algorithm?: Yes
PRN if no void in __ hours: 6
Frequency: Per Retention Algorithm
If Bladder Scan Result >: 400
then:: Straight cath
Intake/ Output As Directed
Frequency: Per unit guidelines
Nursing to Place Non Medication Order As Directed
Physician Order: - PTT at end of alteplase infusion, then q1h until PTT is < 70 seconds.
- Notify provider when PTT is < 70 seconds to re-start heparin infusion at previous rate and
then follow heparin protocol.
Above order entered?: Yes
Straight Cath As Directed
Frequency: Per Retention Algorithm
Additional Instructions: as per intermittent urinary catheter algorithm
Straight Cath As Directed
Frequency: Per Retention Algorithm
Additional Instructions: straight cath as needed per acute urinary retention algorithm for 24 hrs
Additional Instructions: for bladder scan greater than 400 mL
Vital Signs As Directed
Frequency: Per unit guidelines
11/19/24 22:00
amlodipine-olmesartan 1 tablet PO HS
11/19/24 22:22
PTT Urgent
11/20/24 06:00
Type+Screen IN AM
Complete Blood Count/No Diff IN AM
Comprehensive Metabolic Panel IN AM
11/20/24 08:00
Aspirin Low Dose EC [Aspir Low (Enteric Coated)] 81 mg PO DAILY
Polyethylene Glycol Powder [Miralax] 17 grams PO DAILY
Abnormal Lab Results
11/19/24
12:55
RBC 3.88 L 10^6/uL
(4.20-5.40)
Hct 35.5 L %
(37.0-47.0)
MCH 31.2 H pg
(27.0-31.0)
BUN 24 H mg/dl
(7-17)
Glucose 116 H mg/dl
(70-99)
11/19/24 12:55
11/19/24 12:55
Vital Signs
Initial and Last Documented VS:
Initial Vital Signs
Temp Pulse Resp BP Pulse Ox
97.7 F 102 18 137/80 98
11/19/24 12:16 11/19/24 12:16 11/19/24 12:16 11/19/24 12:16 11/19/24 12:16
Last Documented Vital Signs
Temp Pulse Resp BP Pulse Ox
98.1 F 105 21 137/77 94
11/19/24 18:25 11/19/24 18:15 11/19/24 18:15 11/19/24 18:00 11/19/24 18:25
MDM/Problems Addressed
MDM/Problems Addressed:
Discussed the case in detail with pulmonology, at this time given her severe pulmonary arterial hypertension by echocardiogram she is at significant risk of cardiac arrest, we will initiate heparin and admit for IR consultation and further
management as deemed appropriate
Comment
Comment:
EKG independently interpreted by me shows normal sinus rhythm at a rate of [address] changes concerning for ischemia
*Pulse Oximetry
SaO2: 95
Oxygen Mode of Delivery: Room air
Patient hypoxic: no
*Critical Care Note
Total Time (30-74mins, 75-104mins- exclusive of procedures): Not Applicable
Update Note
Update Note:
1520: Case discussed with Dr. Devlin from pulmonary who recommended we admit on heparin given the severity of the pulmonary hypertension on echo yesterday, likely represents CTEPH and the patient will likely need to have IR consultation for
consideration of thrombolysis of the acute component of the PE. Confirmed that we will initiate heparin infusion without bolus given that she took Eliquis this morning
ED Attending Note
-
Portions of this chart may have been created with voice recognition software.� Occasional wrong word or��sound alike� substitutions may have occurred due to the inherent limitations of voice recognition software.
Discharge Plan
Departure
Patient Disposition: Admit
Date of Disposition: 11/19/24
Time of Disposition: 15:41
Admit to: IMU
Presentation/result/management discussed w/ accepting MD/DO: Hospitalist
Discharge Problem:
CTEPH (chronic thromboembolic pulmonary hypertension), Pulmonary embolism
Interventions
Interventions:
*Risk Screen - Suicide Last Done: 11/19/24 12:16
*General Assessment Last Done: 11/19/24 12:16
*Neglect/Abuse Screening Last Done: 11/19/24 12:16
*ED- Fall Risk Assessment Last Done: 11/19/24 12:59
*ED COVID-19 Vaccine History Last Done: 11/19/24 12:16
*Nursing Disposition Last Done: 11/19/24 18:24
ED- Cardiac Assessment Last Done: 11/19/24 13:02
ED- Pulmonary Assessment Last Done: 11/19/24 13:02
Discharge Date and Time
Discharge Date/Time: 11/19/24 18:25
[2024-11-19 16:03] LABS: APTT 31.8 Sec (23.4-35.0)
--- NOTE | 2024-11-19 16:18 | HPS.HSE ---
Family Physician
-
Family Physician: Juan Horton
Chief Complaint
-
severe pulmonary arterial hypertension by OP TTE
History of Present Illness
HPI
89F HX Large chronic pulmonary embolism vs neoplasia, HTN, Hypothyroidism, seen at ER:
- for evaluation of exertional chest tightness and shortness of breath that has been worsening for the past 2 weeks
- was diagnosed with a PE in May and after a 6-month period was taken off the Eliquis on November 05
- symptoms seem to be progressing since Eliquis was stopped on 11/05/24
- outpatient TTE yesterday : severe pulmonary arterial hypertension and was thus sent to the ED for evaluation of her recurrent PE.
ROS She denies any chest pain at present. No recent fevers or chills.
Of note: last echocardiogram at the time of her PE diagnosis showed pulmonary artery hypertension measured at approximately 64 mmHg compared to 85 to 90 mmHg today.
Police Commanding Officer advised that she restart her Eliquis and she took a dose last night as well as this morning, 5 mg each
Medical History
Past Medical History
Past Medical History: Reports Other (asthma, breast cancer, hypertension, hypothyroidism, ureteral stone, anxiety/depression, GERD, osteoporosis, chronic sinus tachycardia)
Past Surgical History: Reports Other (Lumpectomy, hemorrhoidectomy, mastectomy, tonsillectomy, hysterectomy, cataracts,)
Social History
Tobacco: Non-smoker
Alcohol: None
Drug: None
Family History
Family History: Not pertinent
Allergies / Home Medications
Allergies reflects when Allergies were last updated in [facility].
Home Medications with original date entered in [facility]
Allergy/Medication List:
Allergies
Allergy/AdvReac Type Severity Reaction Status Date / Time
codeine Allergy Unknown Nausea / Verified 05/28/24 19:48
Vomiting
Home Medications
acetaminophen 500 mg tablet (Tylenol Extra Strength) 1,000 mg PO Q6HPRN PRN mild pain 07/11/24
amlodipine 5 mg-olmesartan 20 mg tablet 1 tab PO HS Blood Pressure 12/12/23
aspirin 81 mg tablet,delayed release 81 mg PO DAILY Blood Clot Prevention/Tx 12/12/23
calcium carbonate (Calcium 500) 500 mg PO DAILY Supplement 12/12/23
coenzyme Q10 100 mg capsule (CoQ-10) 100 mg PO DAILY Supplement 12/12/23
latanoprost 0.005 % eye drops 1 drp BOTH EYES HS Eye Condition 12/12/23
levothyroxine 75 mcg tablet 75 mcg PO [id number] Thyroid 12/12/23
nortriptyline 10 mg capsule 20 mg PO HS Neurological Condition 12/12/23
rosuvastatin 10 mg tablet 10 mg PO HS High Cholesterol 12/12/23
albuterol sulfate 90 mcg/actuation aerosol inhaler 2 puff inhalation R Q4HPRN PRN ASTHMA 12/23/23
denosumab 60 mg/mL subcutaneous syringe (Prolia) 60 mg SC [id number] 12/25/23
amoxicillin 875 mg-potassium clavulanate 125 mg tablet 1 tab PO Q12H #10 tabs 02/06/24
guaifenesin 100 mg/5 mL oral liquid 200 mg PO Q4HPRN PRN sob 05/28/24
Review of Systems
-
History Source: Patient
A 12 point ROS was completed and negative except as noted: Yes
Constitutional: Reports No Symptoms
EENT: Reports No Symptoms
Respiratory: Reports See HPI
Cardiac: Reports No Symptoms
Abdomen/GI: Reports No Symptoms
: Reports No Symptoms
Musculoskeletal: Reports No Symptoms
Skin: Reports No Symptoms
Neurological: Reports No Symptoms
Endocrine: Reports No Symptoms
Hematologic/Lymphatic: Reports No Symptoms
Psych: Reports No Symptoms
Physical Exam
Vital Signs
Vital Signs
Temp Pulse Resp BP Pulse Ox
97.7 F 101 15 144/81 95
11/19/24 12:16 11/19/24 16:00 11/19/24 16:00 11/19/24 16:00 11/19/24 16:00
Physical Exam
General: Well Developed, Well Nourished and No Apparent Distress
HEENT: NormoCephalic, Moist mucous membranes and Atraumatic
Respiratory: Clear
Cardiac: S1/S2, Regular Rhythm and Murmur (loud systolic murmur at Lt parasternal border ); No Rub
GI: Soft, Non Tender, Non Distended and Normal Bowel Sounds; No Organomegaly
Rectal: Deferred by Provider
Musculoskeletal: No Clubbing, No Cyanosis and No Edema
Skin: No Rash
Neuro: Nonfocal/grossly intact
Laboratory Results
-
11/19/24 12:55
11/19/24 12:55
Laboratory Results
APTT 31.8 Sec (23.4-35.0) 11/19/24 15:46
Total Bilirubin 0.4 mg/dl (0.2-1.3) 11/19/24 12:55
AST 21 U/L (14-36) 11/19/24 12:55
ALT 13 U/L (0-35) 11/19/24 12:55
Alkaline Phosphatase 53 U/L (38-126) 11/19/24 12:55
Troponin I < 0.012 ng/ml 11/19/24 12:55
Data Reviewed
-
CT Scan: Report Reviewed by me
Medical Tests (Nuc Med, Echo, EKG etc): Report Reviewed by me
Lab Data: Labs Reviewed by me
Old Records: Reviewed
Impression/Plan
-
Selected Entries
11/19/24
12:16
Temp 97.7 F
Temp route: Oral
Pulse 102
Resp Rate 18
Blood pressure extremity used: Left upper arm
Blood pressure 137/80
SaO2 98
Oxygen Mode of Delivery Room air
Labs
11/19/24
12:55
WBC 6.2
Hgb 12.1
Plt Count 295
BUN 24 H
Creatinine 0.7
eGFR > 60.00
Troponin I < 0.012
[id number] Pept 983
EKG
NORMAL SINUS RHYTHM
LEFT AXIS DEVIATION
ABNORMAL ECG
WHEN COMPARED WITH ECG OF 28-MAY-2024 20:09,
NO SIGNIFICANT CHANGE WAS FOUND
Confirmed by LYLA CELAYA MD ([id number]) on 11/19/2024 1:16:[address] Chest PE Study
1. Remonstration of large chronic pulmonary emboli in the main pulmonary trunk and right main pulmonary artery, slightly progressed from prior suggesting acute/subacute component/extension. Neoplasm not excluded. Questionable CT evidence for right
heart strain.
2. Grossly stable right upper lobe pulmonary nodule and probable chronic infectious/inflammatory process throughout the right upper lobe as described.
11/18/24 TTE
Normal left ventricular size, wall thickness and systolic function.
Enlarged right ventricular size with mildly reduced function.
Moderate to severe tricuspid regurgitation.
Severe pulmonary HTN, estimated PASP 85-90 mmHg.
Compared to prior study of 05/29/2025 the estimated PASP has increased from 62 mmHg.
Last hospitalist admission: 05/28/24 - 05/30/24
Large chronic pulmonary embolism vs neoplasia
Acute upper respiratory infection
ASSESSMENT & PLAN
Pending Rx reconciliation
Slightly progressed Large chronic PE associated with discontinuation of Eliquis as of 11/05 - she resumed Eliquis 5mg last night plus this morning suggested by Police Commanding Officer
Interval worsening and severe pulmonary HTN, estimated PASP 85-90 mm,m ( 05/29/2025 the estimated PASP was 62 mm)
- Sinus tachycardia but HD stable
- c/w ASA
- agree with Heparin gtt
- Resume Eliquis in AM
- ICU consult
loud systolic murmur at Lt t parasternal border exacerbated by hi pressure flow due to progressive PHT
TTE evidence of Moderate to severe tricuspid regurgitation
Known HX :
HLD on Rosuvastatin
Hypothyroidism on LT4 75mcg except Saturday
Essential HTN on amlodipine
HX breast CA s/p mastectomy
GERD - will start PO PPI while on AC
Anxiety d/o
Osteoporosis
Glaucoma
- Cont home Meds
DVT Px: on Heparin gtt
Code: Full
ICU
Total Critical Care Time__50___ minutes. I was immediately available to the patient and staff. I personally examined, reviewed labs, diagnostic images/reports, interpretations, treatment plans, discussed patient care with other providers and
family or caregivers (if patient is unable to make decisions), entered orders as appropriate and documented the medical record.
[2024-11-19] MEDS: HEPARIN 25000 UNITS/250 ML IV (16:21)
--- NOTE | 2024-11-19 16:58 | CON.INTV ---
Consultation
Consultation Request
Date/Time Consultation Requested: 11/19/2024
Date/Time Consultation Performed: 11/19/2024
Requesting Provider: Dr. Rankin
Performing Provider: Dr. Juan C Mendes
Medical History
-
History of Present Illness:
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
This time comes to emergency department for evaluation of exertional chest tightness and shortness of breath that has been worsening for the past 2 weeks. She was diagnosed with a pulmonary embolism in May and after a 6-month period was taken
off the Eliquis on November 05, symptoms seem to be progressing since that time. Had an outpatient echocardiogram yesterday showing severe pulmonary arterial hypertension and was thus sent to the ED for evaluation of her recurrent PE. She denies any
chest pain at present. No recent fevers or chills. Of note her last echocardiogram at the time of her PE diagnosis showed pulmonary artery hypertension measured at approximately 64 mmHg compared to 85 to 90 mmHg today.
She usually follows up with Dr. Rios.
-
[facility] records reviewed:
Last time seen by Dr. Rios-at that time she declined any cancer evaluation. She would not want aggressive therapy for that.
DLCO was 61 % without evidence of airflow obstruction.
Patient has stopped Eliquis several weeks ago. Her D-dimer was normal at that time.
Restarted prior admission due to worsening pulmonary hypertension and shortness of breath on echo.
Past Medical History
Past Medical History: Other (See assessment and plan)
Social History
Tobacco: Non-smoker
Alcohol: None
Drug: None
Employment: Retired
Family History
Family History: Reviewed & Not Pertinent
Allergies / Home Medications
Allergies
Allergy/AdvReac Type Severity Reaction Status Date / Time
codeine Allergy Nausea / Verified 11/19/24 15:48
Vomiting
gabapentin Allergy Rash Verified 11/19/24 15:48
Home Medications
�Medication �Instructions �Recorded �Confirmed �Last Taken �Type
acetaminophen 500 mg tablet 1,000 mg PO Q6HPRN PRN mild pain 12/12/23 11/19/24 11/19/24 History
(Tylenol Extra Strength)
amlodipine 5 mg-olmesartan 20 mg 1 tab PO HS Blood Pressure 12/12/23 11/19/24 11/18/24 History
tablet
aspirin 81 mg tablet,delayed 81 mg PO DAILY Blood Clot 12/12/23 11/19/24 11/19/24 History
release Prevention/Tx
calcium carbonate (Calcium 500) 500 mg PO DAILY Supplement 12/12/23 11/19/24 05/28/24 History
coenzyme Q10 100 mg capsule 100 mg PO DAILY Supplement 12/12/23 11/19/24 11/19/24 History
(CoQ-10)
latanoprost 0.005 % eye drops 1 drp BOTH EYES HS Eye Condition 12/12/23 11/19/24 11/18/24 History
levothyroxine 75 mcg tablet 75 mcg PO MOTUWETHFRSA@0800 Thyroid 12/12/23 11/19/24 11/19/24 History
nortriptyline 10 mg capsule 20 mg PO HS Neurological Condition 12/12/23 11/19/24 11/18/24 History
rosuvastatin 10 mg tablet 10 mg PO DAILY High Cholesterol 12/12/23 11/19/24 11/19/24 History
albuterol sulfate 90 mcg/actuation 2 puff inhalation R Q4HPRN PRN 12/23/23 11/19/24 11/19/24 History
aerosol inhaler ASTHMA
denosumab 60 mg/mL subcutaneous 60 mg SC [id number] 12/25/23 11/19/24 6 Months Ago History
syringe (Prolia) ~11/27/23
Agarol 1 dose PO DAILYPRN PRN constipation 11/19/24 11/19/24 Unknown History
Salonpas 1 applic topical HSPRN PRN B/L 11/19/24 11/19/24 11/18/24 History
knees
apixaban 5 mg tablet (Eliquis) 5 mg PO BID 11/19/24 11/19/24 11/19/24 History
guaifenesin 100 mg/5 mL oral liquid 200 mg PO BIDPRN PRN sob/cough 11/19/24 11/19/24 Unknown History
oxyquinoline 0.025 %-sodium lauryl 1 ea vaginal DAILY 11/19/24 11/19/24 11/19/24 History
sulfate 0.01 % vaginal gel
(Trimo-Sheikh Jelly)
psyllium 1 packet PO DAILYPRN PRN 11/19/24 11/19/24 2 Days Ago History
constipation ~11/17/24
Review of Systems
-
History Source: Patient
All other systems: Negative unless noted
Vitals / Labs / Diagnostic Testing
Vital Signs
Temp Pulse Resp BP Pulse Ox
97.7 F 101 15 144/81 95
11/19/24 12:16 11/19/24 16:00 11/19/24 16:00 11/19/24 16:00 11/19/24 16:00
Lab Data
11/19/24 12:55
11/19/24 12:55
Laboratory Results
11/19/24
15:46
APTT 31.8
Diagnostic Testing:
Physical Exam
-
HEENT: Normocephalic
Cardiovascular: S1/S2
Respiratory: Non-Labored Respirations
GI: Soft and Non Distended
Neurology: Awake
Skin: Warm
General: Comfortable
Assessment
-
89-year-old woman with past medical history noted. Came to the hospital complaining of shortness of breath. She recently underwent a repeat echocardiogram on 11/18/2024 demonstrate severe pulmonary hypertension. Repeat CT angiogram this admission
showed worsening clot burden. Does have history of chronic thromboembolic disease. Follows up with .
Exertional dyspnea worsening over the last few weeks.
Chronic thromboembolic pulmonary hypertension
Most recent CT angiogram this admission showed worsening of chronic pulmonary clot.
proBNP moderately increased-possibly appropriate for age
Negative troponin
No oxygen requirement
Not hypotensive
Slightly tachycardic
Severe pulmonary hypertension
Lung nodules stable on CAT scan.
Conditions present prior admission:
Chronic thromboembolic disease:05/2024
Asthma-treated with albuterol HFA-does not follow-up with pulmonary.
breast cancer longer than 40 years ago
hypertension
hypothyroidism
ureteral stone
History of complicated UTI: In December and January status post left double-J stent placements with history of stones.
anxiety/depression
GERD,
osteoporosis
chronic sinus tachycardia)
Past Surgical History: Reports Other (Lumpectomy, hemorrhoidectomy, mastectomy, tonsillectomy, hysterectomy, cataracts,)
Assessment and plan:
Chronic thromboembolic pulmonary hypertension: Possibly patient developed new clot after stopping anticoagulation.
Currently not hypoxemic
Not hypotensive
Only developed shortness of breath with exertion
Echocardiogram with worsening pulmonary hypertension and TR compared to prior.
-
Agree with restarting anticoagulation indefinitely-for now heparin drip for today.
Obtain LE dopplers
Home oxygen assessment prior DC
If stable tomorrow can restart oral anticoagulant with loading dose.
-
Unfortunately for chronic thromboembolic pulmonary hypertension options are limited-standard of care is surgical thrombectomy.
For this she will have to go for [facility]. Based on prior conversations during prior admissions patient did not want any significant surgical interventions.
Symptomatic management at her age probably will be recommended. Oxygen therapy if necessary.
Can consider pulmonary vasodilators in the outpatient setting after careful evaluation. Nonurgent.
Discussed with yessenia over phone on 11/19/2024
-
Prognosis is guarded.
Data reviewed:
-
CT chest 11/19/2024: Reviewed
Redemonstration of large chronic pulmonary emboli in the main pulmonary trunk and right main pulmonary artery, slightly progressed from prior suggesting acute/subacute component/extension.
Branching Order Level of the Most Proximal Level of Pulmonary Embolus: Main pulmonary artery.
There is straightening of the interventricular septum and slight prominence of the right ventricle.
No thoracic aortic aneurysm. Stable 6 mm right upper lobe apical nodule (series 401, image 18). Grossly stable scattered irregular groundglass opacities within the right upper lobe with some associated bronchiectasis, stable from prior and
suggestive of chronic scarring and/or infectious/inflammatory process. No new or enlarging pulmonary nodules, areas of airspace disease, pleural or pericardial effusions, or enlarged lymph nodes in the thorax. Heart is not enlarged.
Visualized portion of the upper abdomen is unremarkable.
IMPRESSION:
1. Redemonstration of large chronic pulmonary emboli in the main pulmonary trunk and right main pulmonary artery, slightly progressed from prior suggesting acute/subacute component/extension. Neoplasm not excluded. Questionable CT evidence for right
heart strain.
2. Grossly stable right upper lobe pulmonary nodule and probable chronic infectious/inflammatory process throughout the right upper lobe as described.
-
CT angiogram 05/28/2024:
There is a large area of hypodensity with a small linear focus of calcification in the anterior right lateral margin of the pulmonary trunk extending into the right main pulmonary artery. This is seen best about image 103 series 604 through image
136. There is decreased size of the right upper lobe pulmonary arteries. . There are peripheral nodular opacities in the right upper lobe as well as well as atelectasis.This probably is chronic pulmonary embolus. Neoplasia cannot be completely
excluded These findings are all new..
There is mild bibasilar atelectasis versus scarring.
There is moderate atherosclerotic vascular disease.
Osseous structures show mild scoliosis and mild degenerative disease. Interval is
There is no aortic dissection.
There is no pneumothorax.
There are no abnormal pleural or parenchymal masses.
There is no pleural effusion.
There is a subcarinal lymph node measuring 2 cm. This is stable. The stability suggests neoplasia is less likely.
There is no hilar or mediastinal lymphadenopathy.
There is no axillary lymphadenopathy.
-
Echocardiogram 11/18/2024:
Normal left ventricular size, wall thickness and systolic function.
Enlarged right ventricular size with mildly reduced function.
Moderate to severe tricuspid regurgitation.
Severe pulmonary HTN, estimated PASP 85-90 mmHg.
Compared to prior study of 05/29/2025 the estimated PASP has increased from 62
mmHg.
-
Echocardiogram 05/11/2024:
Normal left ventricular systolic function. LV ejection fraction is 60-65%.
Aortic sclerosis without stenosis.
Normal right ventricular size and function.
Mild tricuspid regurgitation. Moderately elevated PASP. Estimated pulmonary
artery pressure of 48 mmHg assuming a right atrial pressure of 3 mmHg.
Compared to 08/15/22: PASP has increased from 37 mmHg to 48 mmHg. TR has
progressed from mild to mild/moderate.
Lower extremity Dopplers 05/29/2024: Negative for DVT.
[2024-11-19 18:45] LABS: Glucose - Point of Care 100 mg/dl (70-99)
--- NOTE | 2024-11-19 19:38 | PTCARENOTE ---
Addendum entered by Ruby Marquez RN 11/20/24 03:06:
No changes to pt status at this time. Monitor in place. Call delacruz and personal belongings within reach.
Addendum entered by Ruby Marquez RN 11/20/24 01:07:
Pt set up for bedtime. Ambulated to the bathroom ax1, exertional dyspnea noted on return to bed. IV location changed alejandra to discomfort and pt request. Heparin precautions and need for repeat blood draws was reviewed with the pt and understood. Pt
had an episode of confusion (was unsure who this RN was), easily reoriented. Use of call delacruz was reinforced and bed alarm turned on. Trace swelling noticed on B/L LE and RUE. Hand elevated with pillow and legs elevated using bed positioning. Pt has
a preference for a reclined position when sleeping. Unable to clarify if this is due to orthopnea or a mechanical positioning preference . Call delacruz and personal belongings within reach. Monitor in place.
Original Note:
Pt care assumed by this RN. Pt sitting comfortable in bed speaking with family, getting ready for dinner. Pt place on tele pack for BR privileges. pt ambulated with ax1 to the BR , strong steady gait. Plan of care reviewed with pt and family. Goals
of care established ( change IV site, get home as soon as possible). General information about heparin gtts was reviewed and all questions answered. Family at bedside, helpful and attentive to pt (daughter Fatimah and granddaughter Radha). Pt
oriented to room and use of call delacruz. Call delacruz and belongings within reach. Pt currently eating dinner with daughter at bedside.
[2024-11-19] MEDS: TYLENOL 1000 MG PO (21:15)
[2024-11-19] MEDS: NORVASC 5 MG PO (21:50)
[2024-11-19] MEDS: XALATAN OPHTHALMIC SOLUTION 1 DROP BOTH EYES (21:50)
[2024-11-19] MEDS: BENICAR 20 MG PO ×2 (21:50)
[2024-11-19] MEDS: PAMELOR 20 MG PO (21:50)
[2024-11-19 22:57] LABS: APTT 68.8 Sec (23.4-35.0)
[2024-11-19] MEDS: HEPARIN 2300 UNITS IV (23:07)
[2024-11-20] VITALS (17 sets, daily range): BP systolic 92–126; BP diastolic 59–73; O2SAT 97; BMI 22.7
--- NOTE | 2024-11-20 04:40 | PTCARENOTE ---
Pt's Spo2 dropped to 78%. Pt was placed on 5 L NC to recover, boosted in bed and had the head of the bed raised. Pt appeared in no acute distress. SP02 recovered within 5 mins. Supplemental O2 was dropped to 2L NC. SPO2 currently 95%
[2024-11-20] MEDS: SYNTHROID 75 MCG PO (05:34)
[2024-11-20 06:00] LABS: Hemoglobin 11.7 g/dL (12.0-16.0); Mean Corp Hgb Conc. 34.4 g/dL (33.0-37.0); Mean Corpuscular Volume 90.2 fL (81.0-99.0); Mean Platelet Volume 10.2 fL (7.4-10.4); Platelet Count 303 10^3/uL (130-400); Red Blood Cell Count 3.77 10^6/uL (4.20-5.40); Red Cell Dist. Width 13.2 % (11.5-14.5); White Blood Cell Count 6.5 10^3/uL (4.8-10.8)
[2024-11-20 06:26] LABS: APTT > 200 Sec (23.4-35.0)
[2024-11-20 07:29] LABS: ALT (SGPT) 12 U/L (0-35); AST (SGOT) 24 U/L (14-36); Alkaline Phosphatase 57 U/L (38-126); Blood Urea Nitrogen 19 mg/dl (7-17); Calcium 9.1 mg/dl (8.4-10.2); Carbon Dioxide 18 mmol/L (22-30); Chloride 111 mmol/L (98-107); Estimated Creatinine Clearance 50 ml/min; Glucose 108 mg/dl (70-99); Sodium 138 mmol/L (135-145); Total Bilirubin 0.6 mg/dl (0.2-1.3); Total Protein 7.6 g/dl (6.3-8.2); eGFR > 60.00
[2024-11-20] MEDS: CRESTOR 10 MG PO (07:59)
[2024-11-20] MEDS: ASPIR LOW (ENTERIC COATED) 81 MG PO (07:59)
--- NOTE | 2024-11-20 08:15 | PTCARENOTE ---
Assumed care of pt at 0715 following transfer report. Unable to attest to VS prior to 0700. Pt awake and resting quietly in bed. O2 at 2l/min w/ Pox 98%. Pt denies SOB or pain. Heparin gtt currently on hold per protocol. Physical assessment
completed as documented. Call jayme w/in pt reach and safe environment maintained.
[2024-11-20] MEDS: ELIQUIS 10 MG PO (11:19)
--- NOTE | 2024-11-20 11:30 | W.PN.INTV ---
Today's Communication / Plan
Recommendations
Transition to Eliquis
Follow lower extremity Dopplers
Physical therapy evaluation
Home oxygen assessment
Transfer to telemetry versus discharge depending on above
Assessment
-
89-year-old woman with past medical history noted. Came to the hospital complaining of shortness of breath. She recently underwent a repeat echocardiogram on 11/18/2024 demonstrate severe pulmonary hypertension. Repeat CT angiogram this admission
showed worsening clot burden. Does have history of chronic thromboembolic disease. Follows up with .
Exertional dyspnea worsening over the last few weeks.
Chronic thromboembolic pulmonary hypertension
Most recent CT angiogram this admission showed worsening of chronic pulmonary clot.
proBNP moderately increased-possibly appropriate for age
Negative troponin
No oxygen requirement
Not hypotensive
Slightly tachycardic
Severe pulmonary hypertension
Lung nodules stable on CAT scan.
Conditions present prior admission:
Chronic thromboembolic disease:05/2024
Asthma-treated with albuterol HFA-does not follow-up with pulmonary.
breast cancer longer than 40 years ago
hypertension
hypothyroidism
ureteral stone
History of complicated UTI: In December and January status post left double-J stent placements with history of stones.
anxiety/depression
GERD,
osteoporosis
chronic sinus tachycardia)
Past Surgical History: Reports Other (Lumpectomy, hemorrhoidectomy, mastectomy, tonsillectomy, hysterectomy, cataracts,)
Assessment and plan:
Chronic thromboembolic pulmonary hypertension: Possibly patient developed new clot after stopping anticoagulation.
Currently not hypoxemic
Not hypotensive
Only developed shortness of breath with exertion
Echocardiogram with worsening pulmonary hypertension and TR compared to prior.
-
Discontinue heparin-start Eliquis with a loading dose.
Pending lower extremity ultrasounds.
Home oxygen assessment prior DC-order has been placed
Physical therapy/Occupational Therapy
-
Unfortunately for chronic thromboembolic pulmonary hypertension options are limited-standard of care is surgical thrombectomy.
For this she will have to go for tertiary care [facility]. Based on prior conversations during prior admissions patient did not want any significant surgical interventions.
Symptomatic management at her age probably will be recommended. Oxygen therapy if necessary.
Can consider pulmonary vasodilators in the outpatient setting after careful evaluation. Nonurgent.
Discussed with yessenia over phone on 11/19/[address] Mendes had extensive discussion with daughter at the bedside on 11/20/2024. She agree with assessment.
-
Prognosis is guarded.
-
Possible discharge today or tomorrow
If not discharged pulmonary team will follow. If discharged then follow-up with Dr. Rios in the short-term.
Data reviewed:
-
CT chest 11/19/2024: Reviewed
Redemonstration of large chronic pulmonary emboli in the main pulmonary trunk and right main pulmonary artery, slightly progressed from prior suggesting acute/subacute component/extension.
Branching Order Level of the Most Proximal Level of Pulmonary Embolus: Main pulmonary artery.
There is straightening of the interventricular septum and slight prominence of the right ventricle.
No thoracic aortic aneurysm. Stable 6 mm right upper lobe apical nodule (series 401, image 18). Grossly stable scattered irregular groundglass opacities within the right upper lobe with some associated bronchiectasis, stable from prior and
suggestive of chronic scarring and/or infectious/inflammatory process. No new or enlarging pulmonary nodules, areas of airspace disease, pleural or pericardial effusions, or enlarged lymph nodes in the thorax. Heart is not enlarged.
Visualized portion of the upper abdomen is unremarkable.
IMPRESSION:
1. Redemonstration of large chronic pulmonary emboli in the main pulmonary trunk and right main pulmonary artery, slightly progressed from prior suggesting acute/subacute component/extension. Neoplasm not excluded. Questionable CT evidence for right
heart strain.
2. Grossly stable right upper lobe pulmonary nodule and probable chronic infectious/inflammatory process throughout the right upper lobe as described.
-
CT angiogram 05/28/2024:
There is a large area of hypodensity with a small linear focus of calcification in the anterior right lateral margin of the pulmonary trunk extending into the right main pulmonary artery. This is seen best about image 103 series 604 through image
136. There is decreased size of the right upper lobe pulmonary arteries. . There are peripheral nodular opacities in the right upper lobe as well as well as atelectasis.This probably is chronic pulmonary embolus. Neoplasia cannot be completely
excluded These findings are all new..
There is mild bibasilar atelectasis versus scarring.
There is moderate atherosclerotic vascular disease.
Osseous structures show mild scoliosis and mild degenerative disease. Interval is
There is no aortic dissection.
There is no pneumothorax.
There are no abnormal pleural or parenchymal masses.
There is no pleural effusion.
There is a subcarinal lymph node measuring 2 cm. This is stable. The stability suggests neoplasia is less likely.
There is no hilar or mediastinal lymphadenopathy.
There is no axillary lymphadenopathy.
-
Echocardiogram 11/18/2024:
Normal left ventricular size, wall thickness and systolic function.
Enlarged right ventricular size with mildly reduced function.
Moderate to severe tricuspid regurgitation.
Severe pulmonary HTN, estimated PASP 85-90 mmHg.
Compared to prior study of 05/29/2025 the estimated PASP has increased from 62
mmHg.
-
Echocardiogram 05/11/2024:
Normal left ventricular systolic function. LV ejection fraction is 60-65%.
Aortic sclerosis without stenosis.
Normal right ventricular size and function.
Mild tricuspid regurgitation. Moderately elevated PASP. Estimated pulmonary
artery pressure of 48 mmHg assuming a right atrial pressure of 3 mmHg.
Compared to 08/15/22: PASP has increased from 37 mmHg to 48 mmHg. TR has
progressed from mild to mild/moderate.
Lower extremity Dopplers 05/29/2024: Negative for DVT.
Subjective Dataa
Subjective Data
Date of Service:
Date of Service: November 20, 2024
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
Subjective:
Stable symptoms at rest
Hemodynamically stable
Denies chest pain
Denies lightheadedness
Tolerated heparin drip
Review of Systems
Cardiopulmonary: Dyspnea on Exertion and Cough (n)
GI: Abdominal Pain (n)
Objective Data
Data Reviewed
Vital Signs / I&O / Oxygen:
Vital Signs
Temp Pulse Resp BP Pulse Ox
97.7 F 93 22 104/60 98
11/20/24 11:05 11/20/24 10:00 11/20/24 08:04 11/20/24 10:00 11/20/24 10:00
Intake and Output
11/19/24 11/20/24 11/21/24
06:59 06:59 06:59
Intake Total 458 / 458 270 / 270
Output Total 950 / 950
Balance -492 / -492 270 / 270
SaO2 98
Nasal Cannula flow liters per 2
minute
Physical Exam
General: Respiratory Distress and Comfortable
HEENT: Normocephalic
Cardiovascular: S1-S2
Respiratory: Non-Labored Respirations
GI: Soft and Non Distended
Neurology: Awake, AO x 3 and No Motor Deficits
Skin: Warm
Labs/Micro/Reports
Lab Data
11/20/24 05:33
11/20/24 05:33
Laboratory Results
11/19/24 11/19/24 11/20/24
15:46 22:37 05:33
APTT 31.8 68.8 H > 200 H*
--- NOTE | 2024-11-20 12:00 | PTCARENOTE ---
Pt's daughter visiting at bedside. Pt has been OOB in chair after ambulating to BR to void. Tolerating increased activity w/ minimal noted dyspnea. No new complaints. Heparin gtt d/c'ed as documented. Eliquis given per AUG. Pt for evaluation by RT
for home O2.
--- NOTE | 2024-11-20 12:59 | W.DCSUMMARY ---
Discharge Summary
Discharge Data
Date of Admission: 11/19/24
Date of Discharge: 11/20/24
-
Pending Results: No
Hospital Course
89F HX Large chronic pulmonary embolism vs neoplasia, HTN, Hypothyroidism
Presented after Eliquis was discontinued on November 05 for recent diagnosis of pulmonary embolism. Developed chest tightness shortness of breath recently saw outpatient cardiology had a 2D echocardiogram that demonstrated worsening pulmonary pressure
with a CT that was concerning for potential new PE. 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 Pulmonary recommended reload Eliquis 10 mg twice a day x 7 days followed by 5 mg
twice a day indefinitely. While inpatient did require supplemental oxygen. Fortunately, on ambulatory walk test maintaining O2 saturations between 94 and 95%. It was determined at this time no invasive procedures. If in the future once you go
towards thrombectomy then will need to follow-up at a tertiary Medical Center. Left lower extremity ultrasound completed.
CT chest
IMPRESSION:
1. Redemonstration of large chronic pulmonary emboli in the main pulmonary trunk and right main pulmonary artery, slightly progressed from prior suggesting acute/subacute component/extension. Neoplasm not excluded. Questionable CT evidence for right
heart strain.
2. Grossly stable right upper lobe pulmonary nodule and probable chronic infectious/inflammatory process throughout the right upper lobe as described.
DVT Study
IMPRESSION:
No sonographic evidence for lower extremity venous thrombosis.
Seen and examined on the day of discharge which was 11/20/2024. No new complaints. No acute overnight events.
Sitting in bedside chair comfortably reclining.
Does not appear to be hypoxic uncomfortable without evidence of conversational dyspnea
Family at bedside.
NAD
Scleral Anicteric
MMM
No JVD
CTABL
RRR, S1/S2
Soft, NT, ND, BS+
Warm, Dry
AAOx3
Calm
More than 30 minutes spent in discharge including
Final examination of the patient
Summarizing hospital stay
Instructions for continuing care to all relevant caregivers
Preparation of discharge records, prescriptions, and referral forms
Total time spent (in minutes): 33mins
Discharge Plan
-
Patient Disposition: Home with Home Care
Activity Restrictions/Additional Instructions:
Presented after Eliquis was discontinued on November 05 for recent diagnosis of pulmonary embolism. Developed chest tightness shortness of breath recently saw outpatient cardiology had a 2D echocardiogram that demonstrated worsening pulmonary pressure
with a CT that was concerning for potential new PE. 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 Pulmonary recommended reload Eliquis 10 mg twice a day x 7 days followed by 5 mg
twice a day indefinitely. While inpatient did require supplemental oxygen. Fortunately, on ambulatory walk test maintaining O2 saturations between 94 and 95%. It was determined at this time no invasive procedures. If in the future once you go
towards thrombectomy then will need to follow-up at a tertiary Medical Center. Left lower extremity ultrasound completed.
CT chest
IMPRESSION:
1. Redemonstration of large chronic pulmonary emboli in the main pulmonary trunk and right main pulmonary artery, slightly progressed from prior suggesting acute/subacute component/extension. Neoplasm not excluded. Questionable CT evidence for right
heart strain.
2. Grossly stable right upper lobe pulmonary nodule and probable chronic infectious/inflammatory process throughout the right upper lobe as described.
DVT Study
IMPRESSION:
No sonographic evidence for lower extremity venous thrombosis.
Referrals:
Arthur Rios MD [Active, Pulmonary Medicine]
Juan Horton MD [Family Provider, Family Practice]
Prescriptions:
New
Eliquis 5 mg Tablet
10 mg PO BID 7 Days Qty: 28 0RF
Eliquis 5 mg Tablet
5 mg PO BID Qty: 60 0RF
Rx Instructions:
Start day 11/27/2024 in the AM
Continued
latanoprost 0.005 % Drops
1 drp BOTH EYES HS
aspirin 81 mg Tablet,Delayed Release (Dr/Ec)
81 mg PO DAILY
acetaminophen [Tylenol Extra Strength] 500 mg Tablet
1,000 mg PO Q6HPRN PRN (Reason: mild pain)
levothyroxine 75 mcg Tablet
75 mcg PO MOTUWETHFRSA@0800
nortriptyline 10 mg Capsule
20 mg PO HS
calcium carbonate [Calcium 500] 500 mg calcium (1,250 mg) Tablet,Chewable
500 mg PO DAILY
coenzyme Q10 [CoQ-10] 100 mg Capsule
100 mg PO DAILY
rosuvastatin 10 mg Tablet
10 mg PO DAILY
amlodipine-olmesartan 5-20 mg Tablet
1 tab PO HS
albuterol sulfate 90 mcg/actuation Hfa Aerosol Inhaler
2 puff INHALATION R Q4HPRN PRN (Reason: ASTHMA )
Prolia 60 mg/mL Syringe
60 mg SC [id number]
Patient Comments:
11/19/2024, last dose was sometime in June per pt.
Agarol liquid
1 dose PO DAILYPRN PRN (Reason: constipation)
psyllium Packet
1 packet PO DAILYPRN PRN (Reason: constipation)
guaifenesin 100 mg/5 mL Liquid
200 mg PO BIDPRN PRN (Reason: sob/cough)
Trimo-Sheikh Jelly 0.025-0.01 % Gel
1 ea VAGINAL DAILY
Salonpas cream
1 applic topical HSPRN PRN (Reason: B/L knees)
Discontinued
Eliquis 5 mg Tablet
5 mg PO BID
Discharge Orders:
Discharge Patient (As Directed); Ordered 11/20/24
Ordered By: Floyd Donaldson
Discharge Date and Time
Print Language: ANDORRAN
--- NOTE | 2024-11-20 15:00 | CM ---
Patient will d/c today. Seen patient and family bedside, initial assessment completed. Presented to ER for severe pulmonary arterial hypertension.
Patient resides alone in a single story rancher style home, 2 steps to enter from the front, 4 steps to enter from the side. Independent w/ ambulating primarily, does have a RW that is not used as often. Has grab bar and shower chair in the home.
Denies SNF/HC hx, OP therapy in the past.
Address, points of contact and insurance verified
PCP: Juan Horton
Pharmacy: [facility]
Patient not requiring home O2 per assessment. Therapy rec home PT. Discussed w/ patient and family at bedside, agreeable to explore this w/ PCP at a later time. Family interested in agencies that provides companions/aides that will take LTC
insurance. CM provided [employer], [facility], and [facility] as resources but is unsure if LTC insurance is accepted at those agencies. Patient has someone that comes to her home to clean and do her laundry once a week.
No other needs identified at this time
IMM verbally reviewed, copy provided, copy on chart
Plan: Home, no needs
--- NOTE | 2024-11-20 15:57 | PTCARENOTE ---
Discharge order noted. Reviewed instructions with both pt and her daughter. Verbalized understanding. Confirmed correct pharmacy for prescription. Pt w/o changes or complaints. POx 97% on RA. No distress. IV sites d/c'ed and manager cardiac cath
removed. Pt transported at 1545 via WC to hospital exit to be taken home by family member.
== END 2024-11-20 16:21 | disposition home or self-care (01) | DRG 176 ==
LOC: ICU 17:07
PROVIDERS: Physician Assistant; ADMITTING PHYSICIAN Internal Medicine; ATTENDING PHYSICIAN Hospitalist; CONSULT PHYSICIAN Internal Medicine Critical Care Medicine; EMERGENCY PHYSICIAN Emergency Medicine; FAMILY PHYSICIAN Family Medicine
DX: I27.82 Chronic pulmonary embolism (principal); R91.1 Solitary pulmonary nodule; I27.24 Chronic thromboembolic pulmonary hypertension; J45.909 Unspecified asthma, uncomplicated; Z90.10 Acquired absence of unspecified breast and nipple; Z85.3 Personal history of malignant neoplasm of breast; I10 Essential (primary) hypertension; E03.9 Hypothyroidism, unspecified; Z87.442 Personal history of urinary calculi; Z87.440 Personal history of urinary (tract) infections; F41.9 Anxiety disorder, unspecified; F32.A Depression, unspecified; K21.9 Gastro-esophageal reflux disease without esophagitis; M81.0 Age-related osteoporosis without current pathological fracture; I27.21 Secondary pulmonary arterial hypertension; Z90.710 Acquired absence of both cervix and uterus; Z79.82 Long term (current) use of aspirin; Z79.890 Hormone replacement therapy; Z79.899 Other long term (current) drug therapy; Z79.01 Long term (current) use of anticoagulants; E78.00 Pure hypercholesterolemia, unspecified; K59.00 Constipation, unspecified; M41.9 Scoliosis, unspecified
CPT/HCPCS: 71275; 80053; 82962; 83880; 84484; 85025; 85027; 85730; 86850; 86900; 86901; 93005; 93970; 94761; 96365; 96366; 97116; 97162; 99285; Q9967

== ENCOUNTER 2024-12-18 05:23 | Inpatient (IN) | payer OTHER, SELFPAY ==
[2024-12-17 22:31] VITALS: BP 150/86
[2024-12-17 22:57] LABS: Hematocrit 33.6 % (37.0-47.0); Hemoglobin 11.3 g/dL (12.0-16.0); Mean Corp Hgb Conc. 33.6 g/dL (33.0-37.0); Mean Corpuscular Volume 92.3 fL (81.0-99.0); Nucleated Red Blood Cells % 0 %; Platelet Count 368 10^3/uL (130-400); Red Cell Dist. Width 14.1 % (11.5-14.5)
[2024-12-17 23:00] VITALS: BP 123/69
[2024-12-17 23:15] LABS: INR 1.15; PT 15.3 Sec (11.4-14.6)
[2024-12-17 23:20] LABS: ALT (SGPT) 12 U/L (0-35); AST (SGOT) 22 U/L (14-36); Albumin 4.4 g/dl (3.5-5.0); Alkaline Phosphatase 59 U/L (38-126); Blood Urea Nitrogen 27 mg/dl (7-17); Calcium 9.7 mg/dl (8.4-10.2); Carbon Dioxide 25 mmol/L (22-30); Chloride 103 mmol/L (98-107); Glucose 148 mg/dl (70-99); Potassium 4.2 mmol/L (3.5-5.1); Sodium 135 mmol/L (135-145); Total Protein 8.8 g/dl (6.3-8.2); eGFR > 60.00
[2024-12-17 23:31] LABS: Troponin I 0.018 ng/ml
[2024-12-17] MEDS: OFIRMEV 100 IV (23:36)
[2024-12-17 23:51] VITALS: BMI 24.2
[2024-12-18] VITALS (10 sets, daily range): BP systolic 99–132; BP diastolic 50–74; BMI 22.7
--- NOTE | 2024-12-18 01:02 | ED.GENMED ---
History of Present Illness
General
Chief Complaint: Breathing Problem
Source: patient, family and ambulance crew
Exam Limitations: none
Time Seen by Provider: 12/17/24 23:05
Nursing documentation reviewed up to this point in time: agreed with
History of Present Illness
History of Present Illness:
89-year-old female past medical history of PE currently on Eliquis, pulmonary hypertension presented to the emergency department today with concerns of right-sided palpable discomfort worsening throughout the day today. Does have some associated
shortness of breath but has been short of breath chronically over the past few months. Has been taking her Eliquis as prescribed. Denies vomiting or diarrhea.
Past History
Past History
ED Past Medical History: Asthma, Cancer (Breast cancer, Uterine CA), GERD, HTN, Hypercholesterolemia, Hypothyroidism and Other (Osteoarthritis. Sciatica, Hiatal hernia, renal calculus, Glaucoma, )
ED Past Surgical History: Appendectomy, Gynecological (Hysterectomy), Tonsilectomy and Other (Left radical mastectomy, cataracts, Right breast lumpectomy, Hemorrhoidectomy)
Social History
Tobacco: Non-smoker
Alcohol: None
Drug: None
Personal:
Living: alone
Employment: Retired
Family History
Family History: Other
Review of Systems
Review of Systems
Allergies reviewed?: Yes
All Other Systems: ROS reviewed and negative except as documented in HPI and ROS
Phy Exam
Physical Exam
Physical Exam:
GENERAL: Alert , in no apparent distress
EYE: pupils equal and reactive
NECK: Supple, no significant adenopathy.
ENT: o/p clr, mmm.
CARDIAC: Regular rate and rhythm .
LUNGS: Clear breath sounds bilaterally, no acute respiratory distress, no wheezes/rales/rhonchi
ABDOMEN: Significant tenderness to the right upper quadrant of the abdomen. Mild distention of the abdomen diffusely. No focal tenderness other than the right upper quadrant.
NEUROLOGICAL: Alert and oriented, no focal neuro deficits
SKIN: Warm and dry, skin intact.
MUSCULOSKELETAL: No edema, well perfused.
PSYCH: Normal and appropriate interaction.
Scores
Heart Failure Risk
Heart Failure Risk Score: Not Applicable
Course
Orders/Labs/Results
Orders:
Orders
12/17/24 22:34
Electrocardiogram (*1) Urgent
Reason for Study: Chest Pain
12/17/24 22:35
EKG- Treatment ONCE
12/17/24 22:51
Complete Blood Count/With Diff Urgent
Comprehensive Metabolic Panel Urgent
Lipase Urgent
Comment: ADD ON
Prothrombin Time Urgent
Troponin I Urgent
12/17/24 23:14
Chest [CR Chest - 2 Views ] Urgent
Comment:
Reason For Exam: sob
12/17/24 23:29
Acetaminophen 1000MG/100Ml [Ofirmev] 1,000 mg in 100 ml IV ONCE
Acetaminophen IV Indication:: No MT & No Enteral Access
12/17/24 23:31
Urinalysis Reflex To Culture Urgent
Date Specimen was Collected: 12/18/24
Time Specimen was Collected: 01:06
12/18/24
CT Abd/Pel (IV only)-DH only Urgent
Reason For Exam: Right sided abd pain
12/18/24 00:58
Add On- LAB Urgent
Tests Added?: lipase
12/18/24 01:20
Urine Microscopic Reflex Cult Urgent
Urine Culture Urgent
JESSENIA Source: U
Specimen Description:
Date Specimen was Collected: 12/18/24
Time Specimen was Collected: 01:06
12/18/24 02:04
0.9% Sodium Chloride 1000 ml [Nss] 1,000 ml IV BOLUS
CefTRIAXone [Rocephin] 1,000 mg IV NOW STA
12/18/24 02:16
Lactic Acid Urgent
Abnormal Lab Results
12/17/24 12/18/24
22:51 01:20
RBC 3.64 L 10^6/uL
(4.20-5.40)
Hgb 11.3 L g/dL
(12.0-16.0)
Hct 33.6 L %
(37.0-47.0)
Absolute Neuts (auto) 7.6 H 10^3/uL
(1.4-6.5)
Absolute Monos (auto) 0.9 H 10^3/uL
(0.1-0.6)
Lymphocytes % 17.3 L %
(20.5-51.1)
PT 15.3 H Sec
(11.4-14.6)
BUN 27 H mg/dl
(7-17)
Glucose 148 H mg/dl
(70-99)
Total Protein 8.8 H g/dl
(6.3-8.2)
Ur Occult Blood Reflex 4+ A
(Negative)
Urine Nitrite (Reflex) Positive A
(Negative)
Leukocyte Esterase Rfl 3+ A
(Negative)
Urine RBC 3-6 A /HPF
(0-2)
Urine WBC (Reflex) >100 A /HPF
(0-5)
Urine Bacteria (Reflex) Moderate A
(Negative)
Urine Albumin (Reflex) 1+ A
(Neg - Trace)
12/17/24 22:51
12/17/24 22:51
Vital Signs
Initial and Last Documented VS:
Initial Vital Signs
Temp Pulse Resp BP Pulse Ox
98.1 F 124 18 150/86 94
12/17/24 22:31 12/17/24 22:31 12/17/24 22:31 12/17/24 22:31 12/17/24 22:31
Last Documented Vital Signs
Temp Pulse Resp BP Pulse Ox
98.1 F 121 22 106/50 95
12/17/24 22:31 12/18/24 02:30 12/18/24 02:30 12/18/24 02:00 12/18/24 02:30
MDM/Problems Addressed
MDM/Problems Addressed:
89-year-old female presenting to the emergency department today with concerns of right upper quadrant abdominal tenderness worsening over the last few hours. Feels some mild shortness of breath. Tachycardic on arrival. Afebrile. Reproducible
pain to the right upper quadrant and right flank. CT scan was obtained that showed some inflammation of the urinary tract but no obvious abnormalities to the right upper quadrant. Patient did have an elevated BUN to creatinine ratio was given some
fluids for her tachycardia also with likely UTI with positive nitrites significant white blood cells. Started IV antibiotics and will be admitted considering patient ongoing tachycardia.
*Pulse Oximetry
SaO2: 95
Oxygen Mode of Delivery: Room air
Patient hypoxic: no (95)
*Critical Care Note
Total Time (30-74mins, 75-104mins- exclusive of procedures): Not Applicable
ED Attending Note
-
Portions of this chart may have been created with voice recognition software.� Occasional wrong word or��sound alike� substitutions may have occurred due to the inherent limitations of voice recognition software.
Discharge Plan
Departure
Patient Disposition: Admit
Date of Disposition: 12/18/24
Time of Disposition: 02:57
Admit to: Telemetry
Admit to doctor: Siobhan
Presentation/result/management discussed w/ accepting MD/DO: Hospitalist
Patient with high blood pressure during this ER visit?: No
Condition: Good
Covid-19: Not Applicable
Discharge Problem:
Acute UTI
Prescriptions:
No Action
latanoprost 0.005 % Drops
1 drp BOTH EYES HS
aspirin 81 mg Tablet,Delayed Release (Dr/Ec)
81 mg PO DAILY
acetaminophen [Tylenol Extra Strength] 500 mg Tablet
1,000 mg PO Q6HPRN PRN (Reason: mild pain)
levothyroxine 75 mcg Tablet
75 mcg PO MOTUWETHFRSA@0800
nortriptyline 10 mg Capsule
20 mg PO HS
calcium carbonate [Calcium 500] 500 mg calcium (1,250 mg) Tablet,Chewable
500 mg PO DAILY
coenzyme Q10 [CoQ-10] 100 mg Capsule
100 mg PO DAILY
rosuvastatin 10 mg Tablet
10 mg PO DAILY
amlodipine-olmesartan 5-20 mg Tablet
1 tab PO HS
albuterol sulfate 90 mcg/actuation Hfa Aerosol Inhaler
2 puff INHALATION R Q4HPRN PRN (Reason: ASTHMA )
Prolia 60 mg/mL Syringe
60 mg SC [id number]
Patient Comments:
11/19/2024, last dose was sometime in June per pt.
Agarol liquid
1 dose PO DAILYPRN PRN (Reason: constipation)
psyllium Packet
1 packet PO DAILYPRN PRN (Reason: constipation)
guaifenesin 100 mg/5 mL Liquid
200 mg PO BIDPRN PRN (Reason: sob/cough)
Trimo-Sheikh Jelly 0.025-0.01 % Gel
1 ea VAGINAL DAILY
Salonpas cream
1 applic topical HSPRN PRN (Reason: B/L knees)
Eliquis 5 mg Tablet
5 mg PO BID Qty: 60 0RF
Rx Instructions:
Start day 11/27/2024 in the AM
furosemide 20 mg Tablet
20 mg PO DAILY PRN (Reason: shortness of breath or swelling)
Referrals:
Juan Horton MD [Family Provider, Family Practice]
Interventions
Interventions:
*Risk Screen - Suicide Last Done: 12/17/24 22:31
*General Assessment Last Done: 12/17/24 22:31
*Neglect/Abuse Screening Last Done: 12/17/24 22:31
ED- Cardiac Assessment Last Done: 12/17/24 23:51
ED- Pulmonary Assessment Last Done: 12/17/24 23:51
Discharge Date and Time
Print Language: ALBANIAN
[2024-12-18 01:30] LABS: Urine Character Slightly Cloudy (Clear)
[2024-12-18 01:35] LABS: Lipase 65 U/L (23-300)
[2024-12-18 01:37] LABS: Urine White Cell >100 /HPF (0-5)
[2024-12-18] MEDS: ROCEPHIN 1000 MG IV (02:10)
[2024-12-18] MEDS: NSS 1000 IV (02:10)
[2024-12-18] MEDS: SUBLIMAZE 25 MCG IV (04:25)
--- NOTE | 2024-12-18 04:30 | HPS.HSE ---
Family Physician
-
Family Physician: Juan Horton
Chief Complaint
-
Abdominal pain and flank pain
History of Present Illness
This is a 89year-old female with a history of right kidney stone status post lithotripsy laser surgery with stent placement and removal, hypertension, hyperlipidemia, and hypothyroidism presenting to the emergency department with 1 day history of
right-sided abdominal pain and flank pain.
In the Emergency Department she was afebrile but tachycardic to 115. Blood pressure was 104/64 and she was satting 94% on room air. ECG showed sinus tachycardia at a rate of [address] or T wave changes. CBC was unremarkable. Electrolytes
were similarly unremarkable. BUN and creatinine were in the normal range. UA is positive for nitrites leukocyte esterase WBCs and bacteria.
CT of the abdomen pelvis showing no hydro, calcified lesion in the left renal pelvis is decreased in size compared to previous, interval removal of double-J stent, no evidence of diverticulitis or colitis. No appendicitis
Medical History
Past Medical History
Past Medical History: Reports HTN, Hypercholesterolemia and Hypothyroidism
Additional Past Medical History:
Nephrolithaisis
Past Surgical History: Reports Urological
Social History
Tobacco: Non-smoker
Drug: None
Personal: Single
Living: With Family
Employment: Retired
Family History
Family History: Not pertinent
Allergies / Home Medications
Allergies reflects when Allergies were last updated in [employer].
Home Medications with original date entered in [employer]
Allergy/Medication List:
Allergies
Allergy/AdvReac Type Severity Reaction Status Date / Time
codeine Allergy Unknown Nausea / Verified 01/31/24 08:52
Vomiting
Home Medications
acetaminophen 500 mg tablet (Tylenol Extra Strength) 1,000 mg PO Q6HPRN PRN mild pain 12/12/23
amlodipine 5 mg-olmesartan 20 mg tablet 1 tab PO HS Blood Pressure 12/12/23
aspirin 81 mg tablet,delayed release 81 mg PO DAILY Blood Clot Prevention/Tx 12/12/23
calcium carbonate (Calcium 500) 500 mg PO DAILY Supplement 12/12/23
coenzyme Q10 100 mg capsule (CoQ-10) 100 mg PO DAILY Supplement 12/12/23
latanoprost 0.005 % eye drops 1 drp BOTH EYES HS Eye Condition 12/12/23
levothyroxine 75 mcg tablet 75 mcg PO MOTUWETHFRSA Thyroid 12/12/23
nortriptyline 10 mg capsule 20 mg PO HS Neurological Condition 12/12/23
omeprazole 40 mg capsule,delayed release 40 mg PO PRN PRN GERD 12/12/23
rosuvastatin 10 mg tablet 10 mg PO HS High Cholesterol 12/12/23
metoprolol tartrate 25 mg tablet 12.5 mg (1/2 x 25 mg) PO BID #60 tabs 12/15/23
albuterol sulfate 90 mcg/actuation aerosol inhaler 2 puff inhalation PRN PRN ASTHMA 12/23/23
amoxicillin 875 mg-potassium clavulanate 125 mg tablet 1 tab PO Q12H 12/23/23
denosumab 60 mg/mL subcutaneous syringe (Prolia) 60 mg SC [id number] 12/25/23
ibuprofen 200 mg tablet (Advil) 400 mg PO Q6H PRN knee pain 01/28/24
Review of Systems
-
History Source: Family
Constitutional: Reports No Symptoms
EENT: Reports No Symptoms
Respiratory: Reports No Symptoms
Cardiac: Reports No Symptoms
Abdomen/GI: Reports Abdominal Pain
: Reports Flank Pain
Musculoskeletal: Reports No Symptoms
Skin: Reports No Symptoms
Neurological: Reports No Symptoms
Endocrine: Reports No Symptoms
Hematologic/Lymphatic: Reports No Symptoms
Psych: Reports No Symptoms
Physical Exam
Vital Signs
Vital Signs
Temp Pulse Resp BP Pulse Ox
98.1 F 115 27 104/64 94
12/17/24 22:31 12/18/24 04:00 12/18/24 04:00 12/18/24 04:00 12/18/24 04:00
Physical Exam
General: No Apparent Distress
HEENT: NormoCephalic, Anicteric, Moist mucous membranes and Atraumatic
Respiratory: Clear
Cardiac: S1/S2 and Regular Rhythm
GI: Soft, Non Tender, Non Distended and Normal Bowel Sounds
Rectal: Deferred by Provider
Genito-urinary: Costovertebral angle tend
Musculoskeletal: No Clubbing, No Cyanosis and No Edema
Skin: Warm
Neuro: AO x 3
Hematologic/Lymphatic: No Lymphadenopathy
Psych: Calm
Laboratory Results
-
12/17/24 22:51
12/17/24 22:51
Laboratory Results
PT 15.3 Sec (11.4-14.6) H 12/17/24 22:51
INR 1.15 12/17/24 22:51
Lactic Acid 1.6 mmol/L (0.7-2.0) 12/18/24 02:16
Total Bilirubin 0.7 mg/dl (0.2-1.3) 12/17/24 22:51
AST 22 U/L (14-36) 12/17/24 22:51
ALT 12 U/L (0-35) 12/17/24 22:51
Alkaline Phosphatase 59 U/L (38-126) 12/17/24 22:51
Troponin I 0.018 ng/ml 12/17/24 22:51
Lipase 65 U/L (23-300) 12/17/24 22:51
Data Reviewed
-
CT Scan: Report Reviewed by me
Medical Tests (Nuc Med, Echo, EKG etc): Image Personally Visualized and interpreted
Lab Data: Labs Reviewed by me
Old Records: Reviewed
Impression/Plan
-
IMPRESSION:
89-year-old acute onset of right-sided flank pain and tachycardia. UA is markedly positive for bacteria, nitrites leukocyte esterase and WBCs. She is currently afebrile but given tachycardia and flank pain and positive UA there is concern for
pyelonephritis. CT scan is unremarkable no evidence of hydro there is a calcified lesion in the left renal pelvis which is decreased in size compared to previous shows no acute obstruction. There is interval removal of double-J stent and no
evidence of any other intra-abdominal process.
PLAN:
Flank pain - Pyelonephritis suspected. Complicated given h/o prior stones and calcified lesion
- admit to [facility]
- continue ceftriaxone for now
- blood cultures if febrile
- pain control
Tachcyardia -patient has personally tachycardic. Not febrile. Hemodynamically stable. Sinus rhythm. Mild improvement after Tylenol and a dose of fentanyl.
- No history of CHF, status post 1 L normal saline, continue gentle hydration with LR for now
-Pain control
-Continue anticoagulation with Eliquis, patient may be briefl pausing anticoagulation in November for 2 weeks when she developed recurrent clots but now has been on anticoagulation with Eliquis for the last 3 weeks. She has been compliant. If remains
tachycardic, will consider getting a CT PE in AM.
HTN
- continue amlodipine and ARB
- continue metoprolol
Hypothyroid
- continue levothyroxine 75
- check tsh
4. h/o PE (chronic thromboembolic pulmonary hypertension)
- continue apixaban
Code Status - Full Code
[2024-12-18] MEDS: CRESTOR 10 MG PO (08:30)
[2024-12-18] MEDS: ASPIR LOW (ENTERIC COATED) 81 MG PO (08:31)
[2024-12-18] MEDS: ELIQUIS 5 MG PO ×2 (08:31→20:30)
[2024-12-18] MEDS: TYLENOL 650 MG PO ×4 (08:31→20:30)
[2024-12-18] MEDS: LR 500 IV (08:32)
[2024-12-18] MEDS: TORADOL 10 MG IV (08:35)
[2024-12-18] MEDS: SYNTHROID 75 MCG PO (08:35)
--- NOTE | 2024-12-18 14:22 | W.PN.HOSP.TC ---
Today's Communication/Plan
-
Assessment / Plan
Assessment / Plan
General: No Apparent Distress, Comfortable and Conversant
HEENT: NormoCephalic, Moist mucous membranes, Atraumatic
Respiratory: Clear and Non Labored Respirations
Cardiac: S1/S2 and Regular Rhythm; No Rub or Gallop
GI: Soft, Non Tender, Non Distended and Normal Bowel Sounds
Musculoskeletal: Mild bilateral lower extremity edema, no deformity, mild right chest wall TTP
Skin: Warm and dry
: NO Calderon
Neuro: Awake, Alert, Nonfocal/grossly intact
Psych: Calm and Intact Judgment/Insight
Ms. 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
cancer, hypertension, and chronic sinus tachycardia who presented with recurrent right chest wall pain that worsened with inspiration. Her daughter reports that patient's respiratory status and overall energy level has waxed and waned over the past
few weeks. On the day of admission, the patient was unable to tolerate her right chest wall pain which is why she presented to the ED. She was discharged from this institution after a brief hospitalization from 11/19 through 11/20 for treatment of
worsening thromboembolic disease, at which time she was restarted on anticoagulation with Eliquis. She has been adherent with her Eliquis regimen as confirmed by her daughter. She has been advised on the standard of care for CTEPH, which is
surgical thrombectomy and would need to be done at a tertiary care center. Aggressive interventions such as this are currently not in line with patient and family goals of care. Further evaluation for possible cancer evaluation are also not in
line with goals of care. Daughter reports that the patient has been recently evaluated by home palliative care and found to have no current needs.
In the ED at the time of this presentation, she was normotensive, tachycardic, and afebrile. Labs revealed WBC of 10.7, hemoglobin 11.3 with MCV 92.3, normal renal function with a creatinine of 0.8, and a lactic acid of 1.6. Urinalysis showed
RBCs, pyuria, and bacteriuria. EKG showed no acute changes. CT abdomen pelvis shows no evidence of right-sided kidney disease acutely, residual and resolving left-sided renal calcifications and mild hydronephrosis is again noted. She was given IV
fluids, started on antibiotics with ceftriaxone, and admitted for further evaluation and management of possible urinary tract infection.
Right chest wall pain:
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
- Continue anticoagulation with Eliquis
- Chest pain improving, continue supportive care
- Goals of care for conservative management at this point
- Presenting pain is associated with UTI
- Sinus tachycardia is chronic and likely related to CTEPH
UTI:
- UA showing pyuria and bacteriuria
- Patient has been experiencing recent easy fatigability
- Continue ceftriaxone, follow cultures, likely transition to p.o. antibiotics in next 24 hours
Pulmonary hypertension:
- Continue Lasix as needed
- Supplemental oxygen as needed, currently on room air
Hypothyroidism:
- Continue home Synthroid 75 mcg every day except Saturday
Hypertension:
- Continue olmesartan 20 mg and amlodipine 5 mg at night
DVT prophylaxis: Eliquis
CODE STATUS: Full code
Total time spent on today's encounter was 40 minutes
Anticipated Discharge: 24 - 48 hours
Subjective/Interval History
-
Date of Service: December 18, 2024
Patient was seen and examined at bedside this morning. Reports feeling better than when she first arrived. Does have some residual right-sided chest and flank pain which is slightly worse with deep inspiration. No evidence of right-sided kidney
disease acutely, residual and resolving left-sided renal calcifications and mild hydronephrosis is again noted.
Objective Data
-
Vital Signs:
Vital Signs
Temp Pulse Resp BP Pulse Ox
98.0 F 126 17 132/74 94
12/18/24 06:13 12/18/24 06:13 12/18/24 06:13 12/18/24 06:13 12/18/24 06:13
Review of Systems
-
History Source: Patient
All other systems: Reviewed and negative
Respiratory: Reports Pleurisy
Genitourinary: Reports Flank Pain (Right side)
Physical Exam
-
General: No Apparent Distress
--- NOTE | 2024-12-18 16:47 | CM ---
Alert awake oriented patient who lives alone in a 1 story home with 4 steps to enter. She is independent in activates of daily living.She does not drive .She uses a walker.Offered VN she is not sure .She has Palliative care also.
[employer] VN in past . No SNF hx
Pharmacy [facility]
PCP Dr Horton
PLAN Home unsure of VN needs Offer pt at dc again
[2024-12-18] MEDS: BENICAR 20 MG PO (21:47)
[2024-12-18] MEDS: NORVASC 5 MG PO (21:47)
[2024-12-18] MEDS: XALATAN OPHTHALMIC SOLUTION 1 DROP BOTH EYES (21:48)
[2024-12-18] MEDS: PAMELOR 20 MG PO (21:48)
[2024-12-19] MEDS: TYLENOL PO ×3 (00:32→12:48)
[2024-12-19] MEDS: ROCEPHIN 1000 MG IV (02:09)
[2024-12-19] MEDS: STERILE WATER FOR INJECTION 10 ML IV (02:09)
[2024-12-19 08:20] LABS: Hematocrit 28.4 % (37.0-47.0); Hemoglobin 9.6 g/dL (12.0-16.0); Mean Corp Hgb Conc. 33.8 g/dL (33.0-37.0); Mean Corpuscular Volume 92.5 fL (81.0-99.0); Platelet Count 321 10^3/uL (130-400); Red Cell Dist. Width 14.2 % (11.5-14.5)
[2024-12-19 08:48] VITALS: BP 125/71
[2024-12-19 09:03] LABS: Blood Urea Nitrogen 22 mg/dl (7-17); Calcium 8.6 mg/dl (8.4-10.2); Carbon Dioxide 22 mmol/L (22-30); Chloride 106 mmol/L (98-107); Estimated Creatinine Clearance 43 ml/min; Glucose 103 mg/dl (70-99); Potassium 4.4 mmol/L (3.5-5.1); Sodium 136 mmol/L (135-145); eGFR > 60.00
[2024-12-19] MEDS: ASPIR LOW (ENTERIC COATED) 81 MG PO (09:45)
[2024-12-19] MEDS: ELIQUIS 5 MG PO (09:45)
[2024-12-19] MEDS: CRESTOR 10 MG PO (09:45)
[2024-12-19] MEDS: TYLENOL 650 MG PO (09:45)
[2024-12-19] MEDS: SYNTHROID 75 MCG PO (09:49)
--- NOTE | 2024-12-19 13:34 | W.DCSUMMARY ---
Discharge Summary
Discharge Data
Date of Admission: 12/18/24
Date of Discharge: 12/19/24
Total time spent discharging patient (in min): 40
-
Pending Results: No
Hospital Course
Ms. 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
cancer, hypertension, and chronic sinus tachycardia who presented with recurrent right chest wall pain that worsened with inspiration. Her daughter reports that patient's respiratory status and overall energy level have waxed and waned over the past
few weeks. On the day of admission, the patient was unable to tolerate her right chest wall pain which is why she presented to the ED. She was discharged from this institution after a brief hospitalization from 11/19 through 11/20 for treatment of
worsening thromboembolic disease, at which time she was restarted on anticoagulation with Eliquis. She has been adherent with her Eliquis regimen as confirmed by her daughter. She has been advised on the standard of care for CTEPH, which is
surgical thrombectomy which would need to be done at a tertiary care center. Aggressive interventions such as this are currently not in line with patient's goals of care. Further evaluation for possible cancer evaluation are also not in line with
goals of care. Daughter reports that the patient has been recently evaluated by home palliative care and found to have no current needs.
In the ED at the time of this presentation, she was normotensive, tachycardic, and afebrile. Labs revealed WBC of 10.7, hemoglobin 11.3 with MCV 92.3, normal renal function with a creatinine of 0.8, and a lactic acid of 1.6. Urinalysis showed
RBCs, pyuria, and bacteriuria. EKG showed no acute changes. CT abdomen pelvis shows no evidence of right-sided kidney disease acutely, residual and resolving left-sided renal calcifications and mild hydronephrosis is again noted. She was given IV
fluids, started on antibiotics with ceftriaxone, and admitted for further evaluation and management of possible urinary tract infection.
Her respiratory status and right chest wall pain improved. She did not require supplemental oxygen. Ultimately her right chest wall pain completely resolved. She was evaluated for home oxygen needs and found to be saturating appropriately on room
air even with ambulation, thus not requiring supplemental oxygen at discharge. She was continued on antibiotics for UTI. Her urine cultures remain negative. She received her antibiotic dose of ceftriaxone on the day of discharge 12/19. She will
be discharged to home with a prescription for 3 more days of antibiotics to complete a total 5-day course, last dose 12/22. At the time of hospital discharge she was medically stable.
General: No Apparent Distress, Comfortable and Conversant
HEENT: NormoCephalic, Moist mucous membranes, Atraumatic
Respiratory: Clear and Non Labored Respirations
Cardiac: S1/S2 and Regular Rhythm; No Rub or Gallop
GI: Soft, Non Tender, Non Distended and Normal Bowel Sounds
Musculoskeletal: Mild bilateral lower extremity edema, no deformity
Skin: Warm and dry
: NO Calderon
Neuro: Awake, Alert, Nonfocal/grossly intact
Psych: Calm and Intact Judgment/Insight
Discharge Plan
-
Patient Disposition: Home (Routine Discharge)
Discharge Diagnosis/Procedures: R chest wall pain
Activity Restrictions/Additional Instructions:
Ms. 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
cancer, hypertension, and chronic sinus tachycardia who presented with recurrent right chest wall pain that worsened with inspiration. Her daughter reports that patient's respiratory status and overall energy level have waxed and waned over the past
few weeks. On the day of admission, the patient was unable to tolerate her right chest wall pain which is why she presented to the ED. She was discharged from this institution after a brief hospitalization from 11/19 through 11/20 for treatment of
worsening thromboembolic disease, at which time she was restarted on anticoagulation with Eliquis. She has been adherent with her Eliquis regimen as confirmed by her daughter. She has been advised on the standard of care for CTEPH, which is
surgical thrombectomy which would need to be done at a tertiary care center. Aggressive interventions such as this are currently not in line with patient's goals of care. Further evaluation for possible cancer evaluation are also not in line with
goals of care. Daughter reports that the patient has been recently evaluated by home palliative care and found to have no current needs.
In the ED at the time of this presentation, she was normotensive, tachycardic, and afebrile. Labs revealed WBC of 10.7, hemoglobin 11.3 with MCV 92.3, normal renal function with a creatinine of 0.8, and a lactic acid of 1.6. Urinalysis showed
RBCs, pyuria, and bacteriuria. EKG showed no acute changes. CT abdomen pelvis shows no evidence of right-sided kidney disease acutely, residual and resolving left-sided renal calcifications and mild hydronephrosis is again noted. She was given IV
fluids, started on antibiotics with ceftriaxone, and admitted for further evaluation and management of possible urinary tract infection.
Her respiratory status and right chest wall pain improved. She did not require supplemental oxygen. Ultimately her right chest wall pain completely resolved. She was evaluated for home oxygen needs and found to be saturating appropriately on room
air even with ambulation, thus not requiring supplemental oxygen at discharge. She was continued on antibiotics for UTI. Her urine cultures remain negative. She received her antibiotic dose of ceftriaxone on the day of discharge 12/19. She will
be discharged to home with a prescription for 3 more days of antibiotics to complete a total 5-day course, last dose 12/22. At the time of hospital discharge she was medically stable.
Referrals:
Juan Horton MD [Family Provider, [facility]]
Prescriptions:
New
cefdinir 300 mg capsule
300 mg PO BID 3 Days Qty: 6 0RF
Continued
latanoprost 0.005 % Drops
1 drp BOTH EYES HS
aspirin 81 mg Tablet,Delayed Release (Dr/Ec)
81 mg PO DAILY
acetaminophen [Tylenol Extra Strength] 500 mg Tablet
1,000 mg PO Q6HPRN PRN (Reason: mild pain)
levothyroxine 75 mcg Tablet
75 mcg PO MOTUWETHFRSA@0800
nortriptyline 10 mg Capsule
20 mg PO HS
calcium carbonate [Calcium 500] 500 mg calcium (1,250 mg) Tablet,Chewable
500 mg PO DAILY
coenzyme Q10 [CoQ-10] 100 mg Capsule
100 mg PO DAILY
rosuvastatin 10 mg Tablet
10 mg PO DAILY
amlodipine-olmesartan 5-20 mg Tablet
1 tab PO HS
albuterol sulfate 90 mcg/actuation Hfa Aerosol Inhaler
2 puff INHALATION R Q4HPRN PRN (Reason: ASTHMA )
Prolia 60 mg/mL Syringe
60 mg SC [id number]
Patient Comments:
11/19/2024, last dose was sometime in June per pt.
Agarol liquid
1 dose PO DAILYPRN PRN (Reason: constipation)
psyllium Packet
1 packet PO DAILYPRN PRN (Reason: constipation)
guaifenesin 100 mg/5 mL Liquid
200 mg PO BIDPRN PRN (Reason: sob/cough)
Trimo-Sheikh Jelly 0.025-0.01 % Gel
1 ea VAGINAL DAILY
Salonpas cream
1 applic topical HSPRN PRN (Reason: B/L knees)
Eliquis 5 mg Tablet
5 mg PO BID Qty: 60 0RF
Rx Instructions:
Start day 11/27/2024 in the AM
furosemide 20 mg Tablet
20 mg PO DAILY PRN (Reason: shortness of breath or swelling)
Discharge Orders:
Discharge Patient (As Directed); Ordered 12/19/24
Ordered By: Jared Handy
Discharge Date and Time
Print Language: BULGARIAN
[2024-12-19 15:16] VITALS: BP 113/62
== END 2024-12-19 15:32 | disposition home or self-care (01) | DRG 315 ==
LOC: 3 WEST ACU 05:23
PROVIDERS: Emergency Medicine; Physician Assistant; ADMITTING PHYSICIAN Internal Medicine; ATTENDING PHYSICIAN Internal Medicine; EMERGENCY PHYSICIAN Emergency Medicine; FAMILY PHYSICIAN Family Medicine
DX: I27.24 Chronic thromboembolic pulmonary hypertension (principal); N39.0 Urinary tract infection, site not specified; E03.9 Hypothyroidism, unspecified; E78.00 Pure hypercholesterolemia, unspecified; Z87.442 Personal history of urinary calculi; Z88.5 Allergy status to narcotic agent; K21.9 Gastro-esophageal reflux disease without esophagitis; Z79.82 Long term (current) use of aspirin; Z79.01 Long term (current) use of anticoagulants; Z79.890 Hormone replacement therapy; J45.909 Unspecified asthma, uncomplicated; K59.00 Constipation, unspecified; M19.90 Unspecified osteoarthritis, unspecified site; M54.30 Sciatica, unspecified side; Z79.899 Other long term (current) drug therapy; Z85.3 Personal history of malignant neoplasm of breast; Z90.710 Acquired absence of both cervix and uterus; Z86.711 Personal history of pulmonary embolism
CPT/HCPCS: 71046; 74177; 80048; 80053; 81003; 81015; 83605; 83690; 84484; 85025; 85027; 85610; 87077; 87086; 87186; 93005; 96361; 96374; 96375; 99285; Q9967